=== PATIENT | male | born 1995 ===

== ENCOUNTER 2022-04-30 23:08 | Outpatient (CLI) | payer OTHER, SELFPAY | END 2022-04-30 23:09 | disposition home or self-care (01) | DX: G47.33 Obstructive sleep apnea (adult) (pediatric) (principal) | CPT/HCPCS: 95810 ==

== ENCOUNTER 2022-05-14 15:06 | Emergency (ER) | payer OTHER, SELFPAY ==
[2022-05-14 15:13] VITALS: BP 148/88; PULSE 73; RESP 20; TEMP 36.4; O2SAT 98; BMI 33.5
--- NOTE | 2022-05-14 15:24 | ED.GENADULT ---
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 Was lifting a sheet of plywood and felt a strain in his biceps, noted some weakness, did not notice any anatomic change. He has had no prior injury to that area. He has had no redness or strain Related Data Home Medications Medication Instructions Recorded Confirmed No Known Home Medications 04/21/22 04/21/22 Allergies Allergy/AdvReac Type Severity Reaction Status Date / Time No Known Drug Allergies Allergy Verified 04/21/22 12:44 Review of Systems Status of ROS: Reports: 6 or more systems reviewed and unremarkable except as noted in History and below PFSH PFS Social History Smoking Status: Never smoker Do you use any of these nicotine containing products: None Second hand tobacco smoke exposure: No How often do you have a drink containing alcohol: never How often do you have six or more drinks on one occasion: Never AUDIT-C Alcohol total score: 0 Non-prescribed substance use: denies use service: No Exam Narrative: Exam Narrative: Objective: Patient is very well muscle muscled, his biceps tendon on the right looks intact he has no proximal or distal biceps tendon tenderness, he has no obvious defect in his biceps muscle, he points to his mid bicep on the medial aspect of where his tenderness is, there is no rent her deformity. He has flexion extension of the elbow Const: Vital Signs, click to edit/add: Vital Signs - 24 hr 05/14/22 15:13 Temperature 97.5 F L Pulse Rate [Left P ulse Oximeter] 73 Respiratory Rate 20 Blood Pressure [Le ft Upper Arm] 148/88 H Pulse Oximetry 98 Oxygen Delivery Me thod Room Air Course Vital Signs Vital signs: Initial Vital Signs Temperature 97.5 F L 05/14/22 15:13 Temperature Source Temporal Artery Scan 05/14/22 15:13 Pulse Rate 73 05/14/22 15:13 Pulse Rhythm 05/14/22 15:13 Pulse Strength 3+ Normal 05/14/22 15:13 Respiratory Rate 20 05/14/22 15:13 Blood Pressure 148/88 H 05/14/22 15:13 Blood Pressure Mean 108 05/14/22 15:13 Pulse Oximetry 98 05/14/22 15:13 Oxygen Delivery Method 05/14/22 15:13 Vital Signs Temperature 97.5 F L 05/14/22 15:13 Pulse Rate 73 05/14/22 15:13 Respiratory Rate 20 05/14/22 15:13 Blood Pressure 148/88 H 05/14/22 15:13 Pulse Oximetry 98 05/14/22 15:13 Oxygen Delivery Method 05/14/22 15:13 Temperature 97.5 F L 05/14/22 15:13 Pulse Rate 73 05/14/22 15:13 Respiratory Rate 20 05/14/22 15:13 Blood Pressure 148/88 H 05/14/22 15:13 Pulse Oximetry 98 05/14/22 15:13 Oxygen Delivery Method 05/14/22 15:13 Medical Decision Making MDM Narrative Medical decision making narrative: Patient has bicep muscle pain with lifting, with no gross deformity, I suspect a biceps partial cyst strain or some tear, I do not think this is involving tendon tissue and there is no ball and up of the bicep. Will put him in a sling, ice, Aleve or Advil as needed, off work for light duty for the right arm for the next 3 days and then ortho appointment with PA recommended. We will set that up for him Discharge Plan Discharge Clinical Impression: Injury of biceps brachii muscle Patient Disposition: Home, Self-Care Condition: Stable Additional Instructions: Arm sling, ice to the bicep area 10 minutes 3 4 times a day, orthopedic followup in 3-4 days, light use of the arm and no lifting. Advil or Aleve as needed, return to ED sooner problems or concerns. Please make an appointment with Ortho in 3 days, PA appointment be appropriate Follow up appointment is scheduled at the [facility] on 05/17 with an 11am arrival time. If you have any questions or need to reschedule, please call [phone]. [facility] [place] [address] Activity Level: Light activity Activity Detail: Wear arm sling Discharge Diet: Regular Prescriptions: No Action No Known Home Medications Follow Up/Referrals: Provider,Not a Local [Primary Care Provider] - Stand Alone Forms: [employer] Info Instructions
== END 2022-05-14 15:44 | disposition home or self-care (01) ==
LOC: ED 15:31
PROVIDERS: Emergency Provider Family Medicine
DX: S46.211A Strain of muscle, fascia and tendon of other parts of biceps, right arm, initial encounter (principal); X50.0XXA Overexertion from strenuous movement or load, initial encounter; Y93.9 Activity, unspecified; Y92.9 Unspecified place or not applicable; Y99.9 Unspecified external cause status
CPT/HCPCS: 99282; 99283

== ENCOUNTER 2022-05-22 12:24 | Emergency (ER) | payer OTHER, SELFPAY ==
[2022-05-22 12:28] VITALS: BP 130/64; PULSE 76; RESP 18; TEMP 36.6; O2SAT 97; BMI 33.3
--- OUTSIDE RECORDS SUMMARY | 2022-05-22 13:23 | XMS_ITS | Continuity of Care Document ---
:1995 Author Organization [facility] Care Team Providers Name Role Phone DOD-VA Unavailable Unavailable Problems Combined list of problems from Department of Defense and Veterans Affairs facilities. It does not include entries that were removed or entered in error. Problem Status Onset Problem Date of Comments Source Date Type Resolution warts verruca Inactive Condition WARTS VERRUCA : DoD Gave patient 17.6% salycilic acid to apply to wart twice daily. Discussed with him that it can take multiple weeks to effectively work. Discussed that freezing might be an option when we get home but considering its location next to the tragus and pinna (cartilagenous structures) it might not be feasible. Admonished him to not get acid in his ear canal proper and that if this happens he should irrigate the canal copiously. upper Inactive Condition UPPER DoD respiratory RESPIRATORY infection INFECTION: Early stage of upper respiratory infection of likely viral etiology. No evidence of systemic or lower respiratory involvement. Will treat conservatively with rest, hydration and treatment of symptoms. 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 DoD pre-deployment exam visit for: Active Condition DoD services physical Need For Inactive Condition DoD Prophylactic Antibiotics visit for: Inactive Condition DoD potential organ / tissue donor Need For Inactive Condition DoD Vaccination Yellow Fever Need For Inactive Condition DoD Vaccination Polio Inactivated Need For Inactive Condition DoD Vaccination Against Bacterial Diseases community-acquir Inactive Condition DoD ed pneumonia Intervention And Active Condition DoD Counseling On Cessation Of Tobacco Use visit for: Active Condition DoD examination of subpopulation Need For Inactive Condition DoD Vaccination Hepatitis A And Hepatitis B Need For Inactive Condition DoD Vaccination Pneumococcal Need For Inactive Condition DoD Vaccination Against DTP visit for: Inactive Condition DoD screening exam pulmonary tuberculosis Blood Typing Inactive Condition DoD visit for: ears Active Condition DoD / hearing exam Patient Active Condition DoD Education - Injury Prevention Acne vulgaris Active Condition JOSE BRUCE [facility] Cervicalgia Active Condition MOE ARTHUR [facility] Gynaecomastia Active [facility] Insomnia Active Condition KATARZYNA Piper [facility] Low back pain Active [facility] POL[facility] Diagnosis: Active Diagnosis YANETH IS ICD-10-CM [facility] M25.521 Pain in right elbowwith Provider Comments: Pain in right Elbow Diagnosis: Active Diagnosis YANETH IS ICD-10-CM R41.9 [facility] Unsp symptoms and signs w cognitive functions and awarenesswith Provider Comments: Unspecified Symptoms and Signs involving Cognitive Functions and Awareness Diagnosis: Active Diagnosis YANETH IS ICD-10-CM Z71.89 [facility] Other specified counselingwith Provider Comments: Other specified counseling Diagnosis: Active Diagnosis YANETH IS ICD-10-CM Z04.89 [facility] Encounter for examination and observation for oth reasonswith Provider Comments: Encounter for examination and observation for other specified reasons Diagnosis: Active Diagnosis YANETH IS ICD-10-CM R06.83 [facility] Snoringwith Provider Comments: Snoring Diagnosis: Active Diagnosis YANETH IS ICD-10-CM [facility] M25.562 Pain in left kneewith Provider Comments: Pain in left Knee Medications Combined list of outpatient medications from Department of Defense and [facility] Affairs facilities. Medications provided include 1) outpatient medications from the last 15 months, and 2) patient-reported medications. Medication Details Route Status Patient Prescription Prescription Last Ordering Order Source Instructions Expires Number Dispense Provider Date Date ALBUTEROL INHALE 2 INHALA ACTIVE 05/22/2022 [id number] CATHY 05/21/ [place] 90MCG/ACTUA PUFFS BY TION 1 Bala FAJARDO 2020 O [place] ([facility]) INHALATI ENJAMIN E HCS INHL,ORAL,8 ON FOUR .5GM DOSE TIMES A COUNTER DAY NEEDED FOR IMMEDIAT E RELIEF OF SHORTNES S OF BREATH *SHAKE WELL* CETIRIZINE TAKE ONE Active 06/11/2022 [id number] MACIE ELIE 11/26/ [place] (U/D) 10 MG TABLET 2 N, 2021 olis ORAL TAB BY MOUTH [facility] EVERY E DAY FOR ALLERGIE S CETIRIZINE TAKE ONE Discont 03/22/2021 [id number] SANDHYA SHARMA 06/24/ [place] (U/D) 10 MG TABLET inued 1 N, 2021 olis ORAL TAB BY MOUTH [facility] EVERY E DAY FOR ALLERGIE S CETIRIZINE TAKE ONE ORALLY ACTIVE 06/11/2022 [id number] VAN 06/12/ [place] HCL 10MG TABLET 2 VRMADISONEN,B 2021 [place] V A TAB BY MOUTH ENJAMIN E HCS EVERY DAY FOR ALLERGIE S CLINDAMYCIN APPLY TO TOPICA ACTIVE 12/12/2022 [id number] VAN 12/12/ [place] PO4 1% AFFECTED LLY 2 VRMADISON,B 2021 [place] V A LOTION AREA ENJAMIN E HCS TOPICALL Y TWICE A DAY NEEDED FOR FLARED ACNE Fluoxetine TAKE TWO 05/22/2022 [id number] SANDHYA SHARMA 05/27/ [place] (Prozac) CAPSULES 2 N, 2020 [place] Capsule BY MOUTH [facility] EVERY E l 20 mg DAY - Oral NOTIFY PROVIDER IF YOU EXPERIEN CE SIDE EFFECTS WITH THIS MEDICATI ON Fluoxetine TAKE TWO 05/20/2021 [id number] SANDHYA SHARMA 05/23/ [place] (Prozac) CAPSULES 1 N, 2020 [place]is Capsule BY MOUTH [facility] EVERY E l 20 mg DAY - Oral NOTIFY PROVIDER IF YOU EXPERIEN CE SIDE EFFECTS WITH THIS MEDICATI ON FLUOXETINE TAKE TWO ORALLY ACTIVE 05/22/2022 [id number] VAN 07/14/ [place] HCL 20MG CAPSULES 2 TANAB 2021 [facility] CAP BY MOUTH ENJAMIN E HCS EVERY DAY - NOTIFY PROVIDER IF YOU EXPERIEN CE SIDE EFFECTS WITH THIS MEDICATI ON FLUOXETINE TAKE TWO ORALLY 05/20/2021 [id number] VAN 05/21/ [place] HCL 20MG CAPSULES 1 JERRY,B 2019 [place] [facility] CAP BY MOUTH ENJAMIN E HCS EVERY DAY - NOTIFY PROVIDER IF YOU EXPERIEN CE SIDE EFFECTS WITH THIS MEDICATI ON IBUPROFEN TAKE ONE ORALLY ACTIVE 10/27/2022 [id number] VAN 10/27/ [place] 600MG TAB TABLET 2 TANAB 2021 [place] [facility] BY MOUTH ENJAMIN E HCS TWICE A DAY NEEDED FOR PAIN *TAKE WITH FOOD METHOCARBAM TAKE ONE ORALLY ACTIVE 10/27/2022 [id number] VAN 10/27/ [place] OL 750MG TABLET 2 2021 [place] V A TAB BY MOUTH ENJAMIN E HCS TWICE A DAY NEEDED FOR MUSCLE SPASM OXYCODONE TAKE ONE ORALLY 11/25/2021 [id number] VAN 10/27/ [place] HCL 5MG TAB TABLET 2 2021 IRLANDA S VA BY MOUTH ENJAMIN E HCS TWICE A DAY NEEDED FOR SEVERE PAIN VALACYCLOVI TAKE TWO ORALLY ACTIVE 09/28/2022 [id number] VAN 10/01/ [place] R HCL 1GM TABLETS 2 2021 [place] [facility] TAB BY MOUTH ENJAMIN E HCS TWICE A DAY FOR COLD SORE Allergies, Adverse Reactions, Alerts Combined list of allergies from Department of Defense and Veterans Affairs facilities. It does not include entries that were removed or entered in error. Substance Category Reaction Severity Reaction Status Date Comments S ource type Reported No Known Drug Drug active 02/12/2012 [place] Allergies allergy allergy [place] Immunizations Combined list of available immunizations from the Department of Defense and Veterans Affairs facilities. 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 HCS Administe red by: [facility] (NPI=Not Provided) . Partner 95 Lot#: [id number] 2 Mfr: SEQIRUS INFLUENZA, complet [place] SEASONAL, 2018 ed [place] [facility] INJECTABLE, HC S PRESERVATIVE FREE influenza, 0 04/14/ [id number] 158 SmithKline complet i nfluenza DoD injectable, 2014 (SKB) ed , quadrivalent, inject abl contains e, preservative quadriv al ent, contains preservat deepika typhoid Vi 1 03/21/ K1536 101 Sanofi complet typho id DoD capsular 2014 Pasteur ([facility]) ed Vi polysaccharid capsul ar e vaccine polysacch aride vaccine typhoid Vi 2 03/16/ UNK 101 Crucell complet typh oid DoD capsular 2014 [place] ed Vi polysaccharid LTD ([facility]) ca psular e vaccine polysacch aride vaccine influenza, 0 04/25/ UNK 158 Sanofi complet influ balbir DoD injectable, 2013 Pasteur ([facility]) ed , quadrivalent, inject abl contains e, preservative quadriv al ent, contains preservat deepika anthrax 3 03/11/ UNK 24 Emergent complet anthra x DoD vaccine 2014 BioDefense ed vaccine Operations Jodi (MIP) poliovirus 0 11/20/ UNK 10 MedImmune, complet p olioviru DoD vaccine, 2014 Inc. ([facility]) ed s inactivated vaccine, inactivat ed anthrax 2 10/11/ UNK 24 Emergent complet anthra x DoD vaccine 2014 [employer]ense ed vaccine Operations Jodi (MIP) vaccinia 0 10/11/ VV04-00 75 (MELODY) complet vaccin ia DoD (smallpox) 2014 3-A ed (smallpox vaccine ) vaccine anthrax 1 08/11/ [id number] 24 Emergent complet anth rax DoD vaccine 2014 BioDefense ed vaccine Operations Jodi (MIP) Central African 2 08/11/ [id number] 134 Merck (MSD) complet J apanese DoD Encephalitis 2013 ed Encepha li vaccine for tis intramuscular vaccin e administratio for n intramusc ular administr ation Central African 1 07/05/ UNK 134 Merck (MSD) complet Ja panese DoD Encephalitis 2013 ed Encepha li vaccine for tis intramuscular vaccin e administratio for n intramusc ular administr ation typhoid Vi 1 03/18/ J-1629- 101 Sanofi complet typ hoid DoD capsular 2013 1 Pasteur ([facility]) ed Vi polysaccharid capsul ar e vaccine polysacch aride vaccine influenza, 0 03/18/ NS0750 149 MedImmune, complet influenza DoD live, 2013 Inc. (MED) ed , live, intranasal, intranas a quadrivalent l, quadrival ent hepatitis A 3 12/17/ B457F 104 SmithKline complet hepatitis DoD and hepatitis 2013 (SKB) ed A and B vaccine hepatitis B vaccine yellow fever 0 04/13/ [id number] 37 Sanofi complet y ellow DoD vaccine 2011 Pasteur ([facility]) ed feve r vaccine poliovirus 0 03/13/ H1354 10 Sanofi complet polio viru DoD vaccine, 2012 Pasteur ([facility]) ed s inactivated vaccine, inactivat ed hepatitis A 2 03/13/ AHABB26 104 SmithKline comple t hepatitis DoD and hepatitis 2011 0AB (SKB) ed A and B vaccine hepatitis B vaccine hepatitis A 1 02/11/ AHABB24 104 [facility] hepatitis DoD and hepatitis 2011 4BA (SKB) ed A and B vaccine hepatitis B vaccine influenza 0 02/11/ MF0731 111 CSL complet influe nza DoD virus 2012 Biotherapies, ed virus vaccine, Inc. (CSL) vaccin e, live, live, attenuated, attenuat e for d, for intranasal intranasa use l use meningococcal 0 02/11/ [id number] 114 Aventis complet meningoco DoD polysaccharid 2011 [employer]ring [employer] ed ccal e (groups A, (AVB) polysac ch C, Y and aride W-135) (groups diphtheria A, C, Y toxoid and conjugate W-135) vaccine diphtheri (MCV4P) a toxoid conjugate vaccine (MCV4P) tetanus 0 02/11/ ZN36N85 115 SmithKline complet te tanus DoD toxoid, 2011 4DA (SKB) ed toxoid, reduced reduced diphtheria diphtheri toxoid, and a toxoid , acellular and pertu is acellular vaccine, pertussis adsorbed vaccine, adsorbed pneumococcal 0 7AA 133 Merck (MSD) compl et pneumococ DoD conjugate 2012 ed jeannette vaccine, 13 conjugat e valent vaccine, 13 valent Adenovirus, 0 [id number] 143 [place] complet Kimberly noviru DoD type 4 and 2011 8 Laboratories ed s, type 4 type 7, live, (BRR) and ty pe oral 7, live, oral TDAP complet jlv CAROL AP 2012 ed OLIS [facility] Results Combined list of recent chemistry, hematology and other laboratory results from Department of Defense and Veterans Affairs, ranging from 15 months to all on record, depending upon the facility. Order Results Value Reference Date Interpretation Specimen Commen ts Source Name Range URINALYS COLOR OF LIGHT-YE 05/21 Specimen Type : URINE [place] IS URINE LLOW /2020 No comment enter ed. IS [facility] Ordering Provid er: SANGEETA THOMPSON Report Released Date/Time: May 21, 2021 11:36 AM Reporting Lab: [facility] [address] [place] [address] Performing Lab: [facility] [address] [place] [address] URINALYS SPECIFIC 1.017 1.003 - 05/21 Specimen Type: URINE [place] IS GRAVITY OF 1.035 /2020 No comment en tered. IS [facility] URINE Ordering Provid er: SANGEETA THOMPSON Report Released Date/Time: May 21, 2021 11:36 AM Reporting Lab: [facility] [address] [place] [address] Performing Lab: [facility] [address] [place] [address] URINALYS BILIRUBIN. NEGATIVE 05/21 Specimen Ty pe: URINE [place] IS TOTAL /2020 No comment enter ed. IS [facility] [[place]] Ordering Pro vider: SANGEETA THOMPSON IN URINE Report Release d Date/Time: May 21, 2021 11:36 AM BY TEST Reporting Lab: [facility] STRIP [address] [place] [address] Performing Lab: [facility] [address] [place] [address] URINALYS KETONES NEGATIVE 05/21 Specimen Type: URINE [place] IS [MASS/VOLU /2020 No comment en tered. IS [facility] ME] IN Ordering Provid er: SANGEETA THOMPSON URINE BY Report Release d Date/Time: May 21, 2021 11:36 AM TEST STRIP Reporting La b: [facility] [address] [place] [address] Performing Lab: [facility] [address] [place] [address] URINALYS GLUCOSE NEGATIVE <30 - 30 05/21 Specimen Type : URINE [place] IS [MASS/VOLU /2020 No comment en tered. [facility] ME] IN Ordering Provid er: SANGEETA THOMPSON URINE BY Report Release d Date/Time: May 21, 2021 11:36 AM TEST STRIP Reporting La b: [facility] [address] [facility] [facility] [address] Performing Lab: [facility] [address] [facility] [address] URINALYS PROTEIN 10 <20 - 20 05/21 Specimen Type: URINE [place] IS [MASS/VOLU /2020 No comment [facility] tered. [facility] IN Ordering Provid er: SANGEETA THOMPSON URINE BY Report Release d Date/Time: May 21, 2021 11:36 AM TEST STRIP Reporting La b: [facility] [address] [facility] [facility] [address] Performing Lab: [facility] [address] [facility] [facility] [address] URINALYS PH OF 7.0 5.0 - 8.0 05/21 Specimen Type : URINE [place] IS URINE BY /2020 No comment ente red. IS [facility] TEST STRIP Ordering Pro vider: SANGEETA THOMPSON Report Released Date/Time: May 21, 2021 11:36 AM Reporting Lab: [facility] [address] [facility] [facility] [address] Performing Lab: [facility] [address] [facility] [facility] [address] URINALYS LEUKOCYTES 1 0 - 7 05/21 Specimen Typ e: URINE [place] IS [#/AREA] /2020 No comment ente red. IS [facility] IN URINE Ordering Provi chari: SANGEETA THOMPSON SEDIMENT Report Release d Date/Time: May 21, 2021 11:36 AM BY Reporting Lab: [facility] MICROSCOPY ONE [facility] [address] HIGH POWER Performing L ab: [facility] FIELD [address] [facility] [address] URINALYS BACTERIA NONE 05/21 Specimen Type: URINE [place] IS [[place]] SEEN /2020 No comment en tered. IS [facility] IN URINE Ordering Provi chari: SANGEETA THOMPSON SEDIMENT Report Release d Date/Time: May 21, 2021 11:36 AM BY LIGHT Reporting Lab: [facility] MICROSCOPY ONE [facility] [address] Performing Lab: [facility] [address] [place] [address] URINALYS ERYTHROCYT 2 0 - 3 05/21 Specimen Typ e: URINE [place] IS ES /2020 No comment enter ed. IS [facility] [#/AREA] Ordering Provi chari: SANGEETA THOMPSON IN URINE Report Release d Date/Time: May 21, 2021 11:36 AM SEDIMENT Reporting Lab: [facility] BY [place] [address] MICROSCOPY Performing L ab: [facility] HIGH POWER ONE [facility] [address] FIELD URINALYS APPEARANCE CLEAR 05/21 Specimen Typ e: URINE [place] IS OF URINE /2020 No comment ente red. IS [facility] Ordering Provid er: SANGEETA THOMPSON Report Released Date/Time: May 21, 2021 11:36 AM Reporting Lab: [facility] [address] [facility] [address] Performing Lab: [facility] [address] [facility] [address] URINALYS EPITHELIAL NONE 05/21 Specimen Typ e: URINE [place] IS CELLS.SQUA SEEN /2020 No comment en tered. IS [facility] MOUS Ordering Provid er: SANGEETA THOMPSON [#/AREA] Report Release d Date/Time: May 21, 2021 11:36 AM IN URINE Reporting Lab: [facility] SEDIMENT [address] [facility] [address] BY Performing Lab: [facility] MICROSCOPY [facility] [address] HIGH POWER FIELD URINALYS HEMOGLOBIN NEGATIVE 05/21 Specimen Ty pe: URINE [place] IS [[place]] /2020 No comment en tered. IS [facility] IN URINE Ordering Provi chari: SANGEETA THOMPSON BY TEST Report Released Date/Time: May 21, 2021 11:36 AM STRIP Reporting Lab: [facility] [address] [facility] [address] Performing Lab: [facility] [address] [facility] [facility] [address] URINALYS NITRITE NEGATIVE 05/21 Specimen Type: URINE [place] IS [[place]] /2020 No comment en tered. IS [facility] IN URINE Ordering Provi chari: SANGEETA THOMPSON BY TEST Report Released Date/Time: May 21, 2021 11:36 AM STRIP Reporting Lab: [facility] [place] [place] [address] Performing Lab: [facility] [address] [place] [address] URINALYS LEUKOCYTE NEGATIVE 05/21 Specimen Typ e: URINE [place] IS ESTERASE /2020 No comment ente red. [facility] [[place]] Ordering Pro vider: SANGEETA THOMPSON IN URINE Report Release d Date/Time: May 21, 2021 11:36 AM BY TEST Reporting Lab: [facility] STRIP [place] [address] Performing Lab: [facility] [address] [place] [address] CBC LEUKOCYTES 6.56 4.0 - 11.0 05/21 Specimen T ype: BLOOD [place] [#/VOLUME] /2020 No comment en tered. IS [facility] IN BLOOD Ordering Provi chari: SANGEETA THOMPSON BY Report Released Date/Time: Apr 17, 2021 11:27 AM AUTOMATED Reporting Lab : [facility] COUNT [address] [facility] [facility] [address] Performing Lab: [facility] [address] [facility] [facility] [address] CBC ERYTHROCYT 5.90 4.6 - 6.2 05/21 Specimen Ty pe: BLOOD [place] ES /2020 No comment enter ed. [facility] [#/VOLUME] Ordering Pro vider: SANGEETA THOMPSON IN BLOOD Report Release d Date/Time: Apr 17, 2021 11:27 AM BY Reporting Lab: [facility] AUTOMATED [address] [facility] [address] COUNT Performing Lab: [facility] [address] [facility] [facility] [address] CBC HEMOGLOBIN 18.8 13.5 - 12/13 H Specimen Type : BLOOD [place] [MASS/VOLU 17.9 /2020 No comment en tered. IS [facility] ME] IN Ordering Provid er: SANGEETA THOMPSON BLOOD Report Released Date/Time: Apr 17, 2021 11:27 AM Reporting Lab: [facility] [address] [facility] [address] Performing Lab: [facility] [address] [facility] [address] CBC HEMATOCRIT 56.5 41 - 54 12/ H Specimen Type : BLOOD [place] [VOLUME /2020 No comment enter ed. IS [facility] FRACTION] Ordering Prov ider: SANGEETA THOMPSON OF BLOOD Report Release d Date/Time: Apr 17, 2021 11:27 AM BY Reporting Lab: [facility] AUTOMATED [address] [facility] [address] COUNT Performing Lab: [facility] [address] [facility] [address] CBC MCV 95.8 80 - 100 05/21 Specimen Type: BLOOD [place] [ENTITIC /2020 No comment ente red. [facility] VOLUME] BY Ordering Pro vider: SANGEETA THOMPSON AUTOMATED Report Releas ed Date/Time: Apr 17, 2021 11:27 AM COUNT Reporting Lab: [facility] [address] [facility] [address] Performing Lab: [facility] [address] [facility] [address] CBC MCH 31.9 27 - 33 05/21 Specimen Type: B LOOD [place] [ENTITIC /2020 No comment ente red. [facility] MASS] BY Ordering Provi chari: SAGNEETA THOMPSON AUTOMATED Report Releas ed Date/Time: Apr 17, 2021 11:27 AM COUNT Reporting Lab: [facility] [address] [facility] [address] Performing Lab: [facility] [address] [place] [address] CBC MCHC 33.3 32.0 - 05/21 Specimen Type: B LOOD [place] [MASS/VOLU 37.5 /2020 No comment en tered. [facility] ME] BY Ordering Provid er: SANGEETA THOMPSON AUTOMATED Report Releas ed Date/Time: Apr 17, 2021 11:27 AM COUNT Reporting Lab: [facility] [address] [facility] [address] Performing Lab: [facility] [address] [facility] [facility] [address] CBC PLATELETS 272 150 - 400 05/21 Specimen Typ e: BLOOD [place] [#/VOLUME] /2020 No comment en tered. [facility] [place] BLOOD Ordering Provi chari: SANGEETA THOMPSON BY Report Released Date/Time: Apr 17, 2021 11:27 AM AUTOMATED Reporting Lab : [facility] COUNT [address] [facility] [address] Performing Lab: [facility] [address] [facility] [address] CBC PLATELET 10.6 7.4 - 10.4 12/13 H Specimen Typ e: BLOOD [place] MEAN /2020 No comment enter ed. IS [facility] VOLUME Ordering Provid er: SANGEETA THOMPSON [ENTITIC Report Release d Date/Time: Apr 17, 2021 11:27 AM VOLUME] IN Reporting La b: [facility] BLOOD BY [address] [facility] [address] AUTOMATED Performing La b: [facility] COUNT [address] [facility] [address] CBC ERYTHROCYT 14.5 11.5 - 05/21 Specimen Type : BLOOD [place] E 14.5 /2020 No comment enter ed. IS [facility] DISTRIBUTI Ordering Pro vider: SANGEETA THOMPSON ON WIDTH Report Release d Date/Time: Apr 17, 2021 11:27 AM [RATIO] BY Reporting La b: [facility] AUTOMATED [address] [facility] [address] COUNT Performing Lab: [facility] [address] [facility] [address] COMPREHE CREATININE 1.2 0.7 - 1.2 05/21 Specimen T ype: PLASMA [place] NSIVE [MASS/VOLU /2020 No comment en tered. IS [facility] METABOLI ME] IN Ordering Provi chari: SANGEETA THOMPSON SERUM OR Report Release d Date/Time: Apr 17, 2021 11:27 AM PANEL+MG PLASMA Reporting Lab: [facility] [address] [facility] [address] Performing Lab: [facility] [address] [facility] [address] COMPREHE UREA 10 8 - 26 05/21 Specimen Type: PLASMA [place] NSIVE NITROGEN No comment ente red. IS [facility] METABOLI [MASS/VOLU Ordering Pr ovider: SANGEETA THOMPSON C ME] IN Report Released Date/Time: Apr 17, 2021 11:27 AM PANEL+MG SERUM OR Reporting La b: [facility] PLASMA [address] [facility] [address] Performing Lab: [facility] [address] [facility] [address] COMPREHE GLUCOSE 94 74 - 100 05/21 Specimen Type: PLASMA [place] NSIVE [MASS/VOLU /2020 No comment en tered. IS [facility] METABOLI ME] IN Ordering Provi chari: SANGEETA THOMPSON C SERUM OR Report Release d Date/Time: Apr 17, 2021 11:27 AM PANEL+MG PLASMA Reporting Lab: [facility] [address] [facility] [address] Performing Lab: [facility] [address] [facility] [address] COMPREHE SODIUM 138 136 - 145 05/21 Specimen Type : PLASMA [place] NSIVE [MOLES/VOL No comment en tered. IS [facility] METABOLI UME] IN Ordering Provi chari: SANGEETA THOMPSON SERUM OR Report Release d Date/Time: Apr 17, 2021 11:27 AM PANEL+MG PLASMA Reporting Lab: [facility] [address] [facility] [address] Performing Lab: [facility] [address] [facility] [address] COMPREHE POTASSIUM 4.2 3.5 - 5.1 05/21 Specimen Ty pe: PLASMA [place] NSIVE [MOLES/VOL No comment en tered. IS [facility] METABOLI UME] IN Ordering Provi chari: SANGEETA THOMPSON SERUM OR Report Release d Date/Time: Apr 17, 2021 11:27 AM PANEL+MG PLASMA Reporting Lab: [facility] [address] [facility] [address] Performing Lab: [facility] [address] [facility] [address] COMPREHE CHLORIDE 106 98 - 107 05/21 Specimen Type : PLASMA [place] NSIVE [MOLES/VOL No comment en tered. [facility] METABOLI UME] IN Ordering Provi chari: SANGEETA THOMPSON SERUM OR Report Release d Date/Time: Apr 17, 2021 11:27 AM PANEL+MG PLASMA Reporting Lab: [facility] [address] [facility] [address] Performing Lab: [facility] [address] [facility] [address] COMPREHE CARBON 25 22 - 29 05/21 Specimen Type: PLASMA [place] NSIVE No comment ente red. IS [facility] MET[facility]I TOTAL Ordering Provi chari: SANGEETA THOMPSON [MOLES/VOL Report Relea sed Date/Time: Apr 17, 2021 11:27 AM PANEL+MG UME] IN Reporting Lab: [facility] SERUM OR [address] Ar[address] MURILLO [facility] [address] PLASMA Performing Lab: [facility] [address] [facility] [address] COMPREHE CALCIUM 9.3 8.4 - 10.2 05/21 Specimen Typ e: PLASMA [place] NSIVE [MASS/VOLU /2020 No comment en tered. [facility] MET[facility] ME] IN Ordering Provi chari: SANGEETA THOMPSON SERUM OR Report Release d Date/Time: Apr 17, 2021 11:27 AM PANEL+MG PLASMA Reporting Lab: [facility] [address] [facility] [address] Performing Lab: [facility] [address] [facility] [address] COMPREHE PROTEIN 7.8 6.0 - 8.3 05/21 Specimen Type : PLASMA [place] NSIVE [MASS/VOLU /2020 No comment en tered. [facility] MET[facility] ME] IN Ordering Provi chari: SANGEETA THOMPSON SERUM OR Report Release d Date/Time: Apr 17, 2021 11:27 AM PANEL+MG PLASMA Reporting Lab: [facility] [address] [facility] [address] Performing Lab: [facility] [address] [facility] [address] COMPREHE ALBUMIN 4.3 3.5 - 5.2 05/21 Specimen Type : PLASMA [place] NSIVE [MASS/VOLU /2020 No comment en tered. IS [facility] MET[facility]OLI ME] IN Ordering Provi chari: SANGEETA THOMPSON SERUM OR Report Release d Date/Time: Apr 17, 2021 11:27 AM PANEL+MG PLASMA Reporting Lab: [facility] [address] [facility] [address] Performing Lab: [facility] [address] [facility] [address] COMPREHE BILIRUBIN. 0.8 0.2 - 1.2 05/21 Specimen T ype: PLASMA [place] NSIVE TOTAL /2020 No comment enter ed. [facility] MET[facility]I [MASS/VOLU Ordering Pr ovider: SANGEETA THOMPSON] IN Report Released Date/Time: Apr 17, 2021 11:27 AM PANEL+MG SERUM OR Reporting Lab : [facility] PLASMA [address] [facility] [address] Performing Lab: [facility] [address] [facility] [address] COMPREHE MAGNESIUM 1.9 1.6 - 2.6 05/21 Specimen Ty pe: PLASMA [place] NSIVE [MASS/VOLU /2020 No comment en tered. IS [facility] MET[facility] ME] IN Ordering Provi chari: SANGEETA THOMPSON SERUM OR Report Release d Date/Time: Apr 17, 2021 11:27 AM PANEL+MG PLASMA Reporting Lab: [facility] [address] [facility] [address] Performing Lab: [facility] [address] [facility] [address] COMPREHE ANION GAP 7 5 - 15 05/21 Specimen Type : PLASMA [place] NSIVE IN SERUM /2020 No comment ente red. IS [facility] METABOLI OR PLASMA Ordering Pro vider: SANGEETA THOMPSON Report Released Date/Time: Apr 17, 2021 11:27 AM PANEL+MG Reporting Lab: [facility] [address] [facility] [address] Performing Lab: [facility] [address] [facility] [address] COMPREHE ALKALINE 46 40 - 150 05/21 Specimen Type : PLASMA [place] NSIVE PHOSPHATAS /2020 No comment en tered. IS [facility] MET[facility] E Ordering Provi chari: SANGEETA THOMPSON [ENZYMATIC Report Relea sed Date/Time: Apr 17, 2021 11:27 AM PANEL+MG ACTIVITY/V Reporting L ab: [facility] OLUME] IN [address] [facility] [address] SERUM OR Performing Lab : [facility] PLASMA [address] [facility] [address] COMPREHE ALANINE 35 <55 - 55 05/21 Specimen Type: PLASMA [place] NSIVE AMINOTRANS /2020 No comment en tered. [facility] FERASE Ordering Provi chari: SANGEETA THOMPSON [ENZYMATIC Report Relea sed Date/Time: Apr 17, 2021 11:27 AM PANEL+MG ACTIVITY/V Reporting L ab: [facility] OLUME] IN [address] [facility] [address] SERUM OR Performing Lab : [facility] PLASMA [address] [facility] [address] COMPREHE ASPARTATE 38 <34 - 34 12/ H Specimen Typ e: PLASMA [place] NSIVE AMINOTRANS /2020 No comment en tered. [facility] FERASE Ordering Provi chari: SANGEETA THOMPSON [ENZYMATIC Report Relea sed Date/Time: Apr 17, 2021 11:27 AM PANEL+MG ACTIVITY/V Reporting L ab: [facility] OLUME] IN [facility] [address] [facility] [address] SERUM OR Performing Lab : [facility] PLASMA [address] [facility] [address] COMPREHE GLOMERULAR 73 60 12/13 Specimen Typ e: PLASMA [place] NSIVE No comment en tered. IS [facility] MET[facility] RATE/1.73 Ordering Pro vider: SANGEETA THOMPSON SQ Report Released Date/Time: Apr 17, 2021 11:27 AM PANEL+MG M.PREDICTE Reporting L ab: [facility] D [VOLUME [facility] [address] RATE/AREA] Performing L ab: [facility] IN SERUM, ONE [facility] [address] PLASMA OR BLOOD BY CREATININE -BASED FORMULA (CKD-EPI) TSH THYROTROPI 1.47 0.35 - 05/21 Specimen Type : PLASMA [place] W/REFLEX N 4. No comment ente red. IS [facility] TO FREE [UNITS/VOL Ordering Pro vider: SANGEETA THOMPSON T4 UME] IN Report Released Date/Time: Apr 17, 2021 11:27 AM SERUM OR Reporting Lab: [facility] PLASMA [address] [facility] [address] Performing Lab: [facility] [address] [facility] [address] TESTOSTE TESTOSTERO >1500 221 - 870 12/13 H Specimen T ype: SERUM [place] NICOLE NE No comment enter ed. IS [place] [facility] [MASS/VOLU Ordering Pro vider: SANGEETA THOMPSON ME] IN Report Released Date/Time: Apr 17, 2021 11:27 AM SERUM OR Reporting Lab: [facility] PLASMA [address] [facility] [address] Performing Lab: [facility] [address] [facility] [address] FSH FOLLITROPI <0.11 0.95 - 12 L Specimen Type : PLASMA [place] N 11. No comment enter ed. [place] [facility] [UNITS/VOL Ordering Pro vider: SANGEETA THOMPSON UME] IN Report Released Date/Time: Apr 17, 2021 11:27 AM SERUM OR Reporting Lab: [facility] PLASMA [place] [address] Performing Lab: [facility] [address] [facility] [address] LUTEINIZ LUTROPIN <0.12 0.57 - 05/21 L Specimen Type: SERUM [place] ING [UNITS/VOL 05.15 No comment en tered. IS [facility] HORMONE UME] IN Ordering Provid er: SANGEETA THOMPSON SERUM OR Report Release d Date/Time: Apr 17, 2021 11:27 AM PLASMA Reporting Lab: [facility] [address] [facility] [address] Performing Lab: [facility] [address] [facility] [address] INSULIN INSULIN-LI 126 63 - 373 05/21 Specimen Typ e: SERUM [place] LIKE KE GROWTH /2020 Comment: REFE RENCE RANGE: -2.0 - +2.0 SD This test was developed and its analytical performance characteristics have been determined by [facility]. It has n IS [facility] GROWTH FACTOR-I ot been cleared or approved by FDA. This assay has been validated pursuant to the CLIA regulations and is used for clinical purposes. Test performed by [facility] [employer] [place] [address] FA[address] [MASS/[place] [address] Nursing Home Manager: Saranya Sullivan MD,PHD,EMMA Test Reported by [facility], [facility], [address] [place] [address]] IN [place] Jovanni Dukes M.D., Ph.D., Director of Laboratories , CLIA [id number] SERUM OR Ordering Provi chari: SANGEETA THOMPSON PLASMA Report Released Date/Time: May 21, 2021 11:36 AM Reporting Lab: [facility] [place] [address] Performing Lab: [address] INSULIN INSULIN-LI -0.6 05/21 Specimen Type : SERUM [place] LIKE KE GROWTH /2020 Comment: REFE RENCE RANGE: -2.0 - +2.0 SD This test was developed and its analytical performance characteristics have been determined by [facility]. It has n [place] [facility] GROWTH FACTOR-I ot been cleared or approved by FDA. This assay has been validated pursuant to the CLIA regulations and is used for clinical purposes. Test performed by [facility] [address] FA[address] [Z-SCORE] [place] [address] Nursing Home Manager: Saranya Sullivan MD,PHD,EMMA Test Reported by [facility], [address] [place] [address] IN SERUM [place] Maribel Dukes M.D., Ph.D., Director of Laboratories , CLIA [id number] OR PLASMA Ordering Prov ider: SANGEETA THOMPSON Report Released Date/Time: May 21, 2021 11:36 AM Reporting Lab: [facility] [address] [facility] [address] Performing Lab: [address] INSULIN INSULIN-LI DNR 05/21 Specimen Type : SERUM [place] LIKE Comment: REFE RENCE RANGE: -2.0 - +2.0 SD This test was developed and its analytical performance characteristics have been determined by [facility]. It has n [place] [facility] GROWTH FACTOR-I ot been cleared or approved by [facility]. This assay has been validated pursuant to the CLIA regulations and is used for clinical purposes. Test performed by [employer] [place] [address] FA[address] [Z-SCORE] [place] [address] Nursing Home Manager: Saranya Sullivan MD,PHD,EMMA Test Reported by [facility] [employer] [place], [address] [place] [address], [place] SERUM [place] Maribel Dukes M.D., Ph.D., Director of Laboratories , CLIA [id number] OR PLASMA Ordering Prov ider: SANGEETA THOMPSON Report Released Date/Time: May 21, 2021 11:36 AM Reporting Lab: [facility] [address] [facility] [address] Performing Lab: [facility] [address] [facility] CORTISOL CORTISOL 8.3 05/21 Specimen Type: PLASMA [place] [MASS/VOLU /2020 No comment en tered. IS [facility] ME] IN Ordering Provid er: SANGEETA THOMPSON SERUM OR Report Release d Date/Time: May 21, 2021 11:36 AM PLASMA Reporting Lab: [facility] [address] [facility] [address] Performing Lab: [facility] [address] [facility] [address] PROLACTI PROLACTIN 13.64 <19.40 - 05/21 Specimen Typ e: PLASMA [place] N [MASS/VOLU 19.40 No comment en tered. IS [facility] ME] IN Ordering Provid er: SANGETEA THOMPSON SERUM OR Report Release d Date/Time: May 21, 2021 11:36 AM PLASMA BY Reporting Lab : [facility] [address] Y Performing Lab: [facility] [address] [facility] [address] Encounters Combined list of: 1) Encounters from Department of Veterans Affairs facilities going back up to the last 18 months. 2) Encounters from the Department of Defense facilities going back up to 280 months. Location Location Encounter Encounter Reason Attending [facility] Stat Disposition Source Details Type Number For Provider Date Date Visit OUTPATIENT [id number] Notes KIMBERLY, 02/11 Release d w/o [place] Entered Limitations Emerson( M by: Manish OBREGON Process ONYFRO ing) LISSA 12 Feb 2012 0753 ------- ------- ------- ------- -- MOT OUTPATIENT [id number] Notes ZAFAR, 02/11 Release d w/o [place] Entered LYNDSEY Limitations go(M by: STEVEN Skaggs ,LYNDSEY ) A 12 Feb 2012 1010 ------- ------- ------- ------- -- REFEREN CE AUDIOGR AM OUTPATIENT [id number] Notes WALT, 02/28 [place] Entered [place] Home/Quarter go(M by: Galdino Mccall Recruit DUNG Sick K 22 Call) Feb [id number] ------- ------- ------- ------- -- COUGH X5 DAYS OUTPATIENT [id number] Notes LORI, 03/02 Released w/o [place] Entered ERIC Limitations Di ego(M by: Bala WISEMAN Recruit MAURICIO Sick E 24 Call) Feb 2012645 ------- ------- ------- ------- -- PNA F/U OUTPATIENT [id number] T48 PERTUBAL, 03/17 Releas ed w/o [place] VACCINE MARIAM L Limitations go(M CRD Recruit Process ing) OUTPATIENT [id number] 1 MONTH XXXSULLIVA 04/09 Rel eased w/o [place] F/U PNA N, MELI Limitations go(M RX CRD Recruit Sick Call) OUTPATIENT [id number] T48 BONNY, 04/13 Releas ed w/o [place] VACCINE FREDDIE Limitations Emerson (M CRD Recruit Process ing) OUTPATIENT [id number] post MARIE, 05/13 [place] GRULLON Limitations Pend let e on, VALDO([address] [facility]) OUTPATIENT [id number] good BRUNER, 06/18 [place]as ed [place] galdino BENJAMIN Limitations Pendle t onVALDO([address] [facility]) OUTPATIENT [id number] Jacklyn CAMPBELL, 03/15 [place] En[place] NUVIA Limitations Pen dlet by: ADRIAN carvajal [place](Camp ERASEMU Pendlet S on Mar Conserv 1103 ation ------- Clinic) ------- ------- ------- -- ANNUAL AUDIOGR AM OUTPATIENT [id number] Jacklyn CHOPRA, 12/27 Releas ed [place]o [place] Entered ELANA Limitations Pen dlet by: ELIESER carvajal(LISSETTE CABALLERO PHDRA N T 21 [facility]) Dec [id number] ------- ------- ------- ------- -- JAMIE ROBIN E: Test Date December 21, 2013 OUTPATIENT [id number] Theater 02/19 Sick at [place] Provider /2013 Home/Quarter Faci lit s y OUTPATIENT [id number] Theater 05/28 Released w/o Theater Provider /2013 Limitations Facil it y OUTPATIENT [id number] REE WAINSCOTT, 12/22 Released w/o [place] [id number] SIVAKUMAR M Limitations Pe ndlet 182 onVALDO(Arun Pendlet on Optomet ry) OUTPATIENT [id number] FINAL BETO, 10/08 Released w /o [place] PHYSICA IVANA A Limitations D iego(4 L 3 Area [facility] [place] [address]) OUTPATIENT [id number] FINAL BETO, 10/22 Released w /o [place] PHYSICA IVANA A Limitations D iego(4 L 3 Area [facility] [place] [address]) HC PRO 45937-3.61 Diagnos WIESSENBER 11/22 [place] PHONE CALL [id number] is: KAITLYNN [facility] 11-20 MIN ICD-10- K HCS CM Z04.89 Encount er for examina tion and observa tion for oth reasons
wi th Provide r Comment s: Encount er for examina tion and observa tion for other specifi ed reasons Outpatient 22575-2.61 12/05 [place] En[facility] [id number] [facility] 82667-1.61 08/03 [place] En[place] [id number] [facility] 50052-3.61 01/24 [place] En[place] [id number] [facility] [place] 34008-7.61 Diagnos CRUZ,BRUC 01/24 [place] PHONE CALL [phone] is: E A [facility] 5-10 MIN ICD-10- HCS CM Z71.89 Other specifi ed behavioral health counselor ing<br/ >with Provide r Comment s: Other specifi ed behavioral health counselor ing HC PRO 14981-1.61 Diagnos WIABBYENBER 01/24 [place] PHONE CALL [id number] is: KAITLYNN [facility] 5-10 MIN ICD-10- K HCS CM Z04.89 Encount er for examina tion and observa tion for oth reasons
wi th Provide r Comment s: Encount er for examina tion and observa tion for other specifi ed reasons Outpatient 62849-6.61 03/17 [place] En[place] [id number] [facility] 52869-0.61 04/09 [place] En[place] [id number] [facility] HC PRO 21590-6.61 Diagnos WIABBYENBER 04/17 [place] PHONE CALL [id number] is: KAITLYNN [facility] 5-10 MIN ICD-10- K HCS CM Z04.89 Encount er for examina tion and observa tion for oth reasons
wi Provide r Comment s: Encount er for examina tion and observa tion for other specifi ed reasons Outpatient 99925-8.61 KEHBORN,AN 05/17 [place] Encounter [id number] CAR [facility] OFFICE O/P 72756-3.61 Diagnos VAN 05/21 [place] EST MOD [id number] is: TANA [facility] 30-39 MIN ICD-10- NJAMIN E HCS CM M25.562 Pain in left knee
with Provide r Comment s: Pain in left Knee Outpatient 50635-2.61 VAN 05/21 [place] Encounter [id number] TANA [facility] Outpatient 80403-4.61 Diagnos RASHAUN PAUL 05/21 [place] Encounter [id number] is: CA [facility] ICD-10- HCS CM R06.83 Snoring
wi th Provide r Comment s: Snoring Outpatient 21479-9.61 05/22 [place] En[place] [id number] [facility] Outpatient 45544-761 05/23 [place] Encounter [id number] [facility] Outpatient 41378-2 CARLOS,T 06/18 [place] Encounter [id number] ERR [facility] Outpatient 54215-461 06/19 [place] Encounter [id number] [facility] HC PRO 32311-5 Diagnos RAMIREZ,S 07/03 [place] PHONE CALL [id number] is: EBASTIAN C [facility] 5-10 MIN ICD-10- HCS CM Z71.89 Other specifi ed behavioral health counselor ing<br/ >with Provide r Comment s: Other specifi ed behavioral health counselor ing Outpatient 67963-3 CARLOS,T 07/04 [place] Encounter [id number] [facility] PRO 39483-4 Diagnos BETO STONE 09/26 [place] PHONE CALL [id number] is: E K [facility] 5-10 MIN ICD-10- HCS CM Z04.89 Encount er for examina tion and observa tion for oth reasons
wi th Provide r Comment s: Encount er for examina tion and observa tion for other specifi ed reasons Outpatient 82451-5.61 09/27 [place] Encounter [id number] [facility] Outpatient 03398-6 OLBERDING, 10/11 [place] Encounter [id number] MORRIS M IRLANDA S [facility] Outpatient 74483-061 CARLOS,T 10/25 [place] Encounter [id number] ERR [facility] PRO 11972-7 Diagnos JYOTSNA LOPEZ 10/26 [place] PHONE CALL [id number] is: LLY ROULA [facility] 5-10 MIN ICD-10- HCS CM Z04.89 Encount er for examina tion and observa tion for oth reasons
wi th Provide r Comment s: Encount er for examina tion and observa tion for other specifi ed reasons HC PRO 08165-561 Diagnos PRASANNA CRUZ 10/26 [place] PHONE CALL [id number] is: E A [facility] [place] 5-10 MIN ICD-10- HCS CM Z71.89 Other specifi ed behavioral health counselor ing<br/ >with Provide r Comment s: Other specifi ed behavioral health counselor ing Outpatient 16140-0.61 10/27 [place] Encounter [id number] /2021 [facility] Outpatient 28191-0.61 10/30 [place] Encounter [id number] [facility] Outpatient 64271-261 Mariam GONZALEZ 10/31 [place] Encounter [id number] ERRY [facility] Outpatient 02295-2.61 Diagnos VAN 12/11 [place] Encounter [id number] is: TANA [facility] ICD-10- NJAMIN E [facility] CM R41.9 Unsp symptom s and signs w cogniti ve functio ns and awarene ss
with Provide r Comment s: Unspeci fied Symptom s and Signs involvi ng Cogniti ve Functio ns and Awarene ss Outpatient 66527-5.61 12/12 [place] En[place] [id number] /2021 [facility] Outpatient 77122-6.61 ELIE, 02/19 [place] Encounter [id number] MORRIS M IRLANDA S [facility] Outpatient 26330-1.61 SATISH 05/14 [place] Encounter [id number] ,TYRONE S /2021 [facility] Outpatient 65916-1.61 05/14 [place] En[place] [id number] /2021 [facility] Outpatient 50210-1.61 Diagnos VAN 05/15 [place] Encounter [id number] is: TANA, [facility] ICD-10- NJAMIN E HCS CM M25.521 Pain in right elbow<b r/>with Provide r Comment s: Pain in right Elbow Outpatient 62657-4.61 TEOFILO IBARRA 05/16 [place] Encounter [id number] ARNOLDO E /2021 [facility] Outpatient 37088-0.61 SA FRANCISCO 05/16 [place] Encounter [id number] R [facility] Procedures Combined list of: 1) Procedures from Department of Veterans Affairs facilities going back up to the last 18 months, not all [place] non-surgical procedures are included; 2) All procedures from the Department of Defense facilities. Procedure Procedure Type Code Date Perfomer Comments Sourc e Spectacles Services Spectacles 59570 12/22/ SIVAKUMAR LIRIANO Fitting Monofocal Services Fitting 2014 M Except For Aphakia Monofocal Except For [place] [address] 12/22/ SIVAKUMAR LIRIANO Refractive State Refractive State 2014 M Ophthalmological New Ophthalmological 98304 12/22/ ALAINA LIRIANO RA Patient Start New Patient Start 2014 M Comprehensive Care Comprehensive Care Psychometric 12/27/ Diana CHOPRA Neuropsych Testing 2013 ELANA Becerra Battery Admin By Computer Patient education, 03/15/ Arnel CAMPBELL oD not otherwise cla 2012 PING ified, non-physician provider, individual, per se ion [facility] 81398 03/15/ Diana CAMPBELL Testing Testing 2013 PING Physician Supervised Physician 26414 06/18/ SOURAV BRUNER Injection Supervised 2012 Intramuscular Injection Antibiotic Intramuscular Antibiotic Screening to 06/18/ SOURAV BRUNER oD determine the 2012 appropriatene of consideration of an individual for participation in a specified program, project or treatment protocol, per encounter Injection, penicillin 04/13/ KATERINE [facility] g benzathine, 100,000 2011 J units Immunization Immunization 79664 04/13/ KATERINE JADA Diana Administration By Administration By 2011 J Injection, One Injection, One Vaccine Vaccine Physician Supervised Physician 70155 04/13/ KATERINE JADACINTIA Ortiz Injection Supervised 2011 J Intramuscular Injection Antibiotic Intramuscular Antibiotic Vaccines Viral Yellow Vaccines Viral 57122 KATERINE [facility] Diana Fever Yellow Fever 2012 J Hepatitis A And Hepatitis A And 23442 03/17/ Diana MEDRANO Hepatitis B Hepatitis B 2012 SIDANTHONYFRO (Intramuscular Use) (Intramuscular BOCALA Adult Dosage Use) Adult Dosage Physician Supervised Physician 33022 MITCHELL [facility] Injection Supervised 2011 SIDANTHONYFRO Intramuscular Injection [facility] Intramuscular Vaccines Viral Polio, Vaccines Viral 67145 MEDRANO, [facility] Inactivated Polio, Inactivated 2011 SIDANTHONYO [facility] Immunization Immunization 31189 MEDRANO, [facility] Administration By Administration By 2011 SIDANTHONYFRO Injection, One Injection, One BOCALA Vaccine Vaccine Immunization MEDRANO, [facility] Administration By 2011 SIDANTHONYFRO Injection, Each [facility] Additional Vaccine Injection, penicillin MEDRANO, [facility] g benzathine, 100,000 2011 SIDANTHONYFRO units [facility] [place] [address] 02/11/ MARIN, [facility] Capillary Blood Capillary Blood 2012 A Specimen Specimen Venipuncture Venipuncture 21343 02/11/ MARIN, [facility] 2012 A Immunization Immunization 08856 MARIN, [facility] Administration By Administration By 2011 A Injection, One Injection, One Vaccine Vaccine Meningococcal Meningococcal 86298 02/11/ MARIN, [facility] Polysaccharide Polysaccharide 2012 A Vaccine Vaccine Hepatitis A And Hepatitis A And 24209 02/11/ MARIN, [facility] Hepatitis B Hepatitis B 2012 A (Intramuscular Use) (Intramuscular Adult Dosage Use) Adult Dosage Immunization 02/11/ MARIN, [facility] D Administration By 2011 A Injection, Each Additional Vaccine Pneumococcal Pneumococcal 43248 MARIN, [facility] Polysaccharide Polysaccharide 2012 A Vaccine 23 Valent Vaccine 23 Valent Intramuscular Intramuscular Tdap Vaccine Seven Tdap Vaccine Seven 81549 MARIN, [facility] Years Of Age And Years Of Age And 2012 A Above Above Skin Test Anergy Skin Test Anergy 98123 02/11/ MARIN, [facility] Tuberculin Tuberculin 2011 A Intradermal Intradermal Threshold Audiogram Threshold 61674 02/11/ LYNDSEY STEPHEN (Pure Tone) Audiogram (Pure 2012 A Tone) Physician Supervised LYNDSEY STEPHEN Group Educational 2011 A Services FITTING OF SPECTACLES, EXCEPT 2014 FOR APHAKIA; MONOFOCAL NEUROPSYCHOLOGICAL oD TESTING (EG, 2013 [place] CARD SORTING TEST), ADMINISTERED BY A COMPUTER, WITH QUALIFIED HEALTH PURCHASING OFFICER INTERPRETATION AND REPORT PATIENT EDUCATION, oD NOT OTHERWISE 2013 CLASSIFIED, NON-PHYSICIAN PROVIDER, INDIVIDUAL, PER SESSION THERAPEUTIC, PROPHYLACTIC, OR 2013 DIAGNOSTIC INJECTION (SPECIFY SUBSTANCE OR DRUG); SUBCUTANEOUS OR INTRAMUSCULAR IMMUNIZATION ADMINISTRATION 2011 (INCLUDES PERCUTANEOUS, INTRADERMAL, SUBCUTANEOUS, OR INTRAMUSCULAR INJECTIONS); 1 VACCINE (SINGLE OR COMBINATION VACCINE/TOXOID) INJECTION, PENICILLIN G BENZATHINE, 100,000 2011 UNITS PHYS/OTH QUALIFIED oD HEALTH CARE 2011 PROFESSIONAL QUALIFIED,EDUCATION,T RAIN,LICENSURE/REGULA TION (WHEN APPLICABLE) EDUC SER RENDERED TO PATS IN A GRP SETTING (EG,,OBESITY, OR DIABETIC INSTRUCT) COLLECTION OF VENOUS BLOOD BY VENIPUNCTURE 2011 Social History Combined list of available smoking, tobacco, and other social history from Department of Defense andVeterans Affairs facilities. Social History Type Response Date Comment Source Tobacco smoking status MT-TOBACCO FORMER USER 05/17/2021 [facility] NHIS History of tobacco use MT-TOBACCO QUIT 5 TO < 05/17/2021 [facility] 15 YRS History of tobacco use MT-TOBACCO QUIT 5 TO < 06/03/2019 [facility] 15 YRS History of tobacco use MT-TOBACCO DOESNT USE 04/08/2018 [facility] [place] 30 MIN WAKEUP This section is an DoD empty social history section. Plan of Care List of future care activities from Department of Veterans Affairs facilities. Additional future care activities may be listed in the Assessment and Plan section. Date/Time Care Activity Care Activity Detail Facility 06/07/2022 AMBULATORY - NONE AMBULATORY - NONE [facility]
--- OUTSIDE RECORDS SUMMARY | 2022-05-22 13:23 | XMS_ITS | Encounter Summary ---
:1995 Author Organization [facility] Address [address] [place] [id number] Insurance Providers: All historical and current Section Date Range: From patient's date of to the date document was created.This section includes the names of all active insurance providers for the patient. Insurance Type of Plan Start of End of Group Member Insurance Policy P atient's Provider Coverage Name Policy Policy Number ID Provider's Pedroza's Relationship Coverage Coverage Telephone Name to Policy Number Pedroza HE[employer] HEALTH HP SE Jun 09, 84 [id number] [phone] MAGALIS MARTIN PATIENT PARTNERS [facility] 2020 9 7 RADHA ALBA CE R ORGANIZAT ION W/OUT OF NETWORK BENEFITS MEDICA HIGH CENTR Jun 09 [id number] [phone] VERONICA PAT IENT DEDUCTIBL Y LNK 2018 27 2 [facility] [place] HSA W/HEALTH REIMBURSE MENT ARRANGEME NT MEDIMPACT PRESCRIPT HEALT Jun 09 [id number] [phone] SANIA DONIS,MAGALIS PATIENT RX ION H 2020 9 9 RADHA CURRAN ERS OPTUM RX PRESCRIPT CENTU Jun 09, [facility] [id number] [phone] SANIA DONIS PATIENT ION RYLIN 2018 27 1 [facility] HRA Selected Encounter This section includes the information on record at [place] for the Encounter. Date/Time Encounter Type Encounter Description Reason Provider Source May 23, 2021 12:33 Outpatient Encounter RESPIRATORY THERAPY PM IHE Encounter Template Text not used by [facility] Plan of Treatment: Future Appointments (+ 6 months) and Future Tests (+/- 45 days) The Plan of Treatment section includes future care activities for the patient from all VA treatmentfacilities. This section includes future appointments and future orders which are active, pending orscheduled.Future Appointments This section includes appointments that were scheduled to occur 6 months from the date of the Encounter, up to a maximum of 20 appointments. The data comes from all [facility]. Appointment Date/Time Appointment Type Appointment Facili ty Name May 28, 2021 09:30 AM AMBULATORY - NONE [facility] Jun 18, 2021 02:18 PM AMBULATORY - NONE [facility] Jun 19, 2021 10:00 AM AMBULATORY - NONE [facility] Jul 04, 2021 01:10 PM AMBULATORY - NONE [facility] October 25, 2021 09:16 AM AMBULATORY - NONE [facility] October 30, 2021 09:30 AM AMBULATORY - MEDICINE [facility] October 31, 2021 01:06 PM AMBULATORY [facility] Active, Pending, and Scheduled Orders This section includes a listing of several types of active, pending, and scheduled orders, including clinic medications orders, diagnostic test orders, procedure orders and consult orders; where the start date of the order is 45 days before the date of the Encounter or 45 days after the date of the Encounter. The data comes from all [facility]. Test Date/Time Test Type Test Details Facility Name May 21, 2021 11:36 Laboratory - COVID-[address] [facility] AM Chemistry Order (AMADA/DIASORIN) NASOPHARYNGEAL SWAB WC ONCE Lab Results: +/- 30 days of the encounter This section includes the Chemistry and Hematology Lab Results on record with DC for the patient. Radiology Reports and Pathology Reports are provided separately, in subsequent sections.Lab Results This section contains the Chemistry/Hematology Results that were resulted 30 days before or 30 daysafter the date of the Encounter. Date/Time Source Result Type Result - Unit Interpretation Reference Range Comment May 21, 2021 12:07 PM [facility] URINALYSIS Specim en Type: URINE No comment enter ed. Ordering Provid er: SANGEETA THOMPSON Report Released Date/Time: May 21, 2021 11:36 AM Reporting Lab: [facility] [address] [facility] [address] Performing Lab: [facility] [address] URINE COLOR LIGHT-YELLOW SPECIFIC GRAVITY 1.017 1.003-1.035 URINE BILIRUBIN NEGATIVE NEGATIVE URINE KETONES NEGATIVE NEGATIVE URINE GLUCOSE NEGATIVE <30 URINE PROTEIN 10 <20 URINE PH 7.0 5.0-8.0 URINE WBC/HPF 1 0-7 URINE BACTERIA NONE SEEN URINE RBC/HPF 2 0-3 APPEARANCE CLEAR SQUAMOUS EPITHELIAL NONE SEEN URINE BLOOD NEGATIVE NEGATIVE URINE NITRITE NEGATIVE NEGATIVE LEUKOCYTE ESTERASE NEGATIVE NEGATIVE May 21, 2021 09:28 AM [facility] CBC Specim en Type: BLOOD No comment enter ed. Ordering Provid er: SANGEETA THOMPSON Report Released Date/Time: Apr 17, 2021 11:27 AM Reporting Lab: [facility] [address] [facility] [address] Performing Lab: [facility] [address] [facility] [address] WBC 6.56 4.0-11.0 RBC 5.90 4.6-6.2 HGB 18.8 H 13.5-17.9 HCT 56.5 H 41-54 MCV 95.8 80-100 MCH 31.9 27-33 MCHC 33.3 32.0-37.5 PLT 272 150-400 MPV 10.6 H 7.4-10.4 RDW 14.5 11.5-14.5 May 21, 2021 09:28 [facility] TSH W/REFLEX TO FREE Spec imen Type: PLASMA AM T4 No comment enter ed. Ordering Provid er: SANGEETA THOMPSON Report Released Date/Time: Apr 17, 2021 11:27 AM Reporting Lab: [facility] [address] [facility] [address] Performing Lab: [facility] [address] [facility] [address] TSH 1.47 0.35-4.94 May 21, 2021 09:28 AM [facility] TESTOSTERONE Specim en Type: SERUM No comment enter ed. Ordering Provid er: SANGEETA THOMPSON Report Released Date/Time: Apr 17, 2021 11:27 AM Reporting Lab: [facility] [address] [facility] [address] Performing Lab: [facility] [address] [facility] [address] TESTOSTERONE >1500 H 221-870 May 21, 2021 09:28 AM [facility] FSH Specim en Type: PLASMA No comment enter ed. Ordering Provid er: SANGEETA THOMPSON Report Released Date/Time: Apr 17, 2021 11:27 AM Reporting Lab: [facility] [address] [facility] [address] Performing Lab: [facility] [address] [facility] [address] FSH <0.11 L 0.95-11.95 May 21, 2021 [facility] COMPREHENSIVE METABOLIC Spec imen Type: PLASMA 09:28 AM PANEL+MG No comment enter ed. Ordering Provid er: SANGEETA THOMPSON Report Released Date/Time: Apr 17, 2021 11:27 AM Reporting Lab: [facility] [address] Performing Lab: [facility] [address] CREATININE 1.2 0.7-1.2 UREA NITROGEN 10 8-26 GLUCOSE 94 74-100 SODIUM 138 136-145 POTASSIUM 4.2 3.5-5.1 CHLORIDE 106 98-107 CO2 25 22-29 CALCIUM 9.3 8.4-10.2 PROTEIN,TOTAL 7.8 6.0-8.3 ALBUMIN 4.3 3.5-5.2 BILIRUBIN, TOTAL 0.8 0.2-1.2 MAGNESIUM 1.9 1.6-2.6 ANION GAP 7 5-15 ALKALINE PHOSPHATASE 46 40-150 ALT/SGPT 35 <55 AST/SGOT 38 H <34 ESTIMATED GFR(eGFR) 73 >60 May 21, 2021 09:28 [facility] LUTEINIZING HORMONE Speci men Type: SERUM AM No comment enter ed. Ordering Provid er: SANGEETA THOMPSON Report Released Date/Time: Apr 17, 2021 11:27 AM Reporting Lab: [facility] [address] Performing Lab: [facility] [address] LUTEINIZING HORMONE <0.12 L 0.57-12.07 May 21, 2021 09:28 [facility] INSULIN LIKE GROWTH Speci men Type: SERUM AM FACTOR I Comment: REFERE NCE RANGE: -2.0 - +2.0 SD This test was developed and its analytical performance characteristics have been determined by [facility]. It has n ot been cleared or approved by FDA. This assay has been validated pursuant to the CLIA regulations and is used for clinical purposes. Test performed by [facility] [place] [address] [place] [address] Vice President Supply Chain: Saranya Sullivan MD,PHD,EMMA Test Reported by [facility], [employer] [facility], [address] [place] [address] Jovanni Dukes M.D., Ph.D., Director of Laboratories , ANSHUL [id number] Ordering Provid er: SANGEETA THOMPSON Report Released Date/Time: May 21, 2021 11:36 AM Reporting Lab: [facility] [address] [facility] [address] Performing Lab: [address] .INSULIN LIKE GF I 126 63-373 .Z-SCORE(MALE) -0.6 SEE BELOW .Z-SCORE(FEMALE) DNR May 21, 2021 09:28 AM [facility] CORTISOL Specim en Type: PLASMA No comment enter ed. Ordering Provid er: SANGEETA THOMPSON Report Released Date/Time: May 21, 2021 11:36 AM Reporting Lab: [facility] [address] [facility] [address] Performing Lab: [facility] [address] [facility] [address] CORTISOL 8.3 May 21, 2021 09:28 AM [facility] PROLACTIN Specim en Type: PLASMA No comment enter ed. Ordering Provid er: SANGEETA THOMPSON Report Released Date/Time: May 21, 2021 11:36 AM Reporting Lab: [facility] [address] [facility] [address] Performing Lab: [facility] [address] [facility] [address] PROLACTIN 13.64 <19.40 Social History: Smoking Status (Most current) and Tobacco Use (All prior to encounter date) This section includes the most current, and the historical, smoking and tobacco-related health factors from the [facility] where the Encounter took place.Current Smoking Status This section includes the most current smoking, or tobacco-related health factor, from the [facility] where the Encounter took place. Date/Time Current Smoking Status Comment Facility May 17, 2021 02:30 PM VA-TOBACCO FORMER USER MIN [facility] Tobacco Use History This section includes a history of the smoking, or tobacco- related health factors, that were collected on or before the date of the Encounter. The data comes from the [facility] facility where the Encounter took place. 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 Date/Time Encounter Note(s) Provider Source May 23, 2021 12:33 PM RESPIRATORY THERAPY NOTE: LORENZO RODRIGUEZ [facility] LOCAL TITLE: RESPIRATORY THERAPY F/U NOTE STANDARD TITLE: RESPIRATORY THERAPY NOTE DATE OF NOTE: MAY 23, 2021@12:33 ENTRY DATE: MAY 23, 2021@12:33:43 AUTHOR: RAMONA RODRIGUEZ EXP COSIGNER: URGENCY: STATUS: COMPLETED Due to COVID-19 pandemic, this PFT study is lakhwinder gorized as a low priority for the purpose of scheduling inside the [place] or for r eferral to Community [facility] and will not be scheduled at this time unless clinic ally urgent. This order above has been di scontinued. Please reorder in 90 days if clinically still indicated. If the PFT is now clinically urgent, please subm it a consult to Pulmonary Service or contact the national sales manager Pulmonary Consult team for prior authorization with supporting information to review fo r approval. Alternative approaches for similar information include clinical follow-up, chest imaging, or a non-visit (e-consult) to Pulmonary. /keturah RODRIGUEZ RRT COMPUTER TYPESETTER Signed: 05/23/2021 12:33 Receipt Acknowledged By: * AWAITING SIGNATURE * SANGEETA THOMPSON
--- OUTSIDE RECORDS SUMMARY | 2022-05-22 13:24 | XMS_ITS | Encounter Summary ---
:1995 Author Organization [facility] Address [address] [place] [id number] Insurance Providers: All historical and current Section [...] HEALTH HEALTH HP SE Jun 09, 84 [id number] [phone] MAGALIS MARTIN PATIENT PARTNERS [facility] 2020 9 7 RADHA ALBA CE R ORGANIZAT ION W/OUT OF NETWORK BENEFITS [employer] HIGH CENTR Jun 09 [id number] [phone] VERONICA PAT IENT DEDUCTIBL Y LNK 2018 27 2 [facility] LOS PLAN HSA W/HEALTH REIMBURSE MENT ARRANGEME NT MEDIMPACT PRESCRIPT HEALT Jun 09 [id number] [phone] MAGALIS MCPHERSON PATIENT RX ION H 2020 9 9 RADHA CURRAN ERS [facility] RX PRESCRIPT CENTU Jun 09 [facility] [id number] [phone] SANIA DONIS PATIENT ION RYLIN 2018 27 1 [facility] HRA Selected Encounter This section includes the information on record at [place] for the Encounter. Date/Time Encounter Type Encounter Reason Provider Source Description October 11, 2021 10:36 Outpatient PRIMARY VINICIO DELGADILLO AM Encounter CARE/MEDICINE Elizabeth IHE Encounter Template Text not used by [place] Plan of Treatment: Future Appointments (+ 6 [...] 20 appointments. The data comes from all [place] treatment facilities. Appointment Date/Time Appointment Type Appointment Facili ty Name October 25, 2021 09:16 AM AMBULATORY - NONE [facility] October 30, 2021 09:30 AM AMBULATORY - MEDICINE [facility] October 31, 2021 01:06 PM AMBULATORY - NONE [facility] Dec 11, 2021 02:30 PM AMBULATORY - MEDICINE [facility] Social History: Smoking Status (Most current) and Tobacco Use (All prior to encounter date) This section includes the most current, and the historical, smoking and tobacco-related health factors from the [place] facility where the Encounter took place.Current Smoking Status This section includes the most current smoking, or tobacco-related health factor, from the [place] facility where the Encounter took place. Date/Time Current Smoking Status Comment Facility May 17, 2021 02:30 PM VA-TOBACCO FORMER USER MIN [facility] Tobacco Use History This section includes a history of the smoking, or tobacco- related health factors, that were collected on or before the date of the Encounter. The data comes from the [place] facility where the Encounter took place. 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 Date/Time Encounter Note(s) Provider Source Nov 21, 2021 03:45 PM PRIMARY CARE SECURE MESSAGING: DEVONTE SOUZA [facility] LOCAL TITLE: PRIMARY CARE SECURE MESSAGING STANDARD TITLE: PRIMARY CARE SECURE MESSAGING DATE OF NOTE: NOV 21, 2021@15:45 ENTRY DATE: NOV 21, 2021@15:45:25 AUTHOR: KORI SOUZA EXP COSIGNER: URGENCY: STATUS: COMPLETED ------Original Message Sent: 10/11/2021 11:37 AM ET From: VINICIO DELGADILLO To: MARCOS MARTIN Subject: General:Dermatology [facility] Mr Martin, I have sent your request to Dr Thompson. He i s off this week and back next Friday. Please let me know if there is anything else I can help you with. Vinicio GARZA ------Original Message Sent: 10/11/2021 04:17 PM ET From: MARCOS MARTIN To: [facility] Primary CareAlcides (Zehra) Subject: General:Dermatology Thank you very much. I look forward to hearing f rom the doctor. Very Respectfully, Shahbaz Martin ------Original Message Sent: 11/21/2021 12:25 AM ET From: MARCOS MARTIN To: [facility] Primary CareAlcides) Subject: General:Dermatology Good evening, I'm curious to see if I can get a referr al to [place] continue to have cystic acne cover my entire face and would like to get this situated sooner than later. V/R Shahbaz Martin ------Original Message Sent: 11/21/2021 12:25 AM ET From: MARCOS MARTIN To: [facility] Primary CareAlcides (Zehra) Subject: General:Dermatology Good evening, I'm curious to see if I can get a referr al to seek [place] I continue to have cystic acne cover my entire face and would like to get this situated sooner than later. V/R Shahbaz Martin ------Original Message Sent: 11/21/2021 04:45 PM ET From: KORI SOUZA To: MARCOS MARTIN Subject: General:Dermatology Hello, Typically that is something Derm can treat here at the [facility]. I will forward this to your provider for review. Kori Hand Registered Nurse /kobi/ KORI SOUZA, BSN, RN REGISTERED NURSE Signed: 11/21/2021 15:45 Receipt Acknowledged By: * AWAITING SIGNATURE * SANGEETA THOMPSON October 11, 2021 10:36 AM PRIMARY CARE SECURE MESSAGING: Jenni DELGADILLO [facility] LOCAL TITLE: PRIMARY CARE SECURE MESSAGING STANDARD TITLE: PRIMARY CARE SECURE MESSAGING DATE OF NOTE: OCTOBER 11, 2021@10:36 ENTRY DATE: OCTOBER 11, 2021@10:36:11 AUTHOR: VINICIO DELGADILLO EXP COSIGNER: URGENCY: STATUS: COMPLETED ------Original Message Sent: 10/10/2021 06:44 PM ET From: MARCOS MARTIN To: [facility] Primary CareAlcides (Grape) Subject: General:Dermatology I am trying to get a referral to get a wart pa viry(on right side of ear) and obtain accutane for my ongoing acne conditions /kobi/ VINICIO DELGADILLO RN Signed: 10/11/2021 10:36 Receipt Acknowledged By: * AWAITING SIGNATURE * SANGEETA THOMPSON
--- OUTSIDE RECORDS SUMMARY | 2022-05-22 13:24 | XMS_ITS | Encounter Summary ---
:[address] [facility] Address [address] [place] [address] Insurance Providers: All historical and current Section [...] HEALTH HEALTH HP SE Jun 09, 84 [id number] [phone] MAGALIS MARTIN PATIENT PARTNERS [facility] 2020 9 7 RADHA ALBA CE R ORGANIZAT ION W/OUT OF NETWORK BENEFITS [facility] Jun 09 [id number] [phone] VERONICA PAT IENT DEDUCTIBL Y LNK 2018 27 2 MARGARITA [facility] LOS PLAN HSA W/HEALTH REIMBURSE MENT ARRANGEME NT MEDIMPACT PRESCRIPT HEALT Jun 09 [id number] [phone] MAGALIS MCPHERSON PATIENT RX ION H 2020 9 9 RADHA CURRAN ERS [facility] RX [facility]CRIPT [facility] Jun 09 [facility] [id number] [phone] SANIA DONIS PATIENT ION RYLIN 2018 27 1 MARGARITA FLOWER LOS [facility] HRA Selected Encounter This section includes the information on record at [place] for the Encounter. Date/Time Encounter Type Encounter Description Reason Provider Source May 22, 2021 02:10 Outpatient Encounter PRIMARY CARE/MEDICINE PM IHE Encounter Template Text not used by [place] Plan of Treatment: Future Appointments (+ 6 [...] 20 appointments. The data comes from all [facility]. Appointment Date/Time Appointment Type Appointment Facili ty Name May 28, 2021 09:30 AM AMBULATORY - NONE [facility] Jun 18, 2021 02:18 PM [facility]ORY - [facility] Jun 19, 2021 10:00 AM [facility]ULATORY - [facility] Jul 04, 2021 01:10 PM AMBULATORY - NONE [facility] October 25, 2021 09:16 AM AMBULATORY - NONE [facility] October 30, 2021 09:30 AM AMBULATORY - MEDICINE [facility] October 31, 2021 01:06 PM [facility] Active, Pending, and Scheduled Orders This section includes a listing of several types of active, pending, and scheduled orders, including clinic medications orders, diagnostic test orders, procedure orders and consult orders; where the start date of the order is 45 days before the date of the Encounter or 45 days after the date of the Encounter. The data comes from all [facility]. Test Date/Time Test Type Test Details Facility Name May 21, 2021 11:36 Laboratory - COVID-19 SCREEN PANEL [facility] AM Chemistry Order (AMADA/DIASORIN) NASOPHARYNGEAL SWAB WC ONCE Lab Results: +/- 30 days of the encounter This section includes the Chemistry and Hematology Lab Results on record with [facility] for the [facility]. Radiology Reports and Pathology Reports are provided separately, in subsequent sections.Lab Results This section contains the Chemistry/Hematology Results that were resulted 30 days before or 30 daysafter the date of the Encounter. Date/Time Source Result Type Result - Unit Interpretation Reference Range Comment May 21, 2021 12:07 PM [facility] URINALYSIS Specim en Type: URINE No comment enter ed. Ordering Provid er: SANGEETA THOMPSON Report Released Date/Time: May 21, 2021 11:36 AM Reporting Lab: [facility] [address] [facility] [place] [place] [facility] [address] Performing Lab: [facility] [address] URINE COLOR LIGHT-YELLOW SPECIFIC GRAVITY 1.017 1.003-1.035 URINE BILIRUBIN NEGATIVE NEGATIVE URINE KETONES NEGATIVE NEGATIVE URINE GLUCOSE NEGATIVE <30 URINE PROTEIN 10 <20 URINE PH 7.0 5.0-8.0 URINE WBC/HPF 1 0-7 URINE BACTERIA NONE SEEN URINE RBC/HPF 2 0-3 APPEARANCE CLEAR SQUAMOUS EPITHELIAL NONE SEEN URINE BLOOD NEGATIVE NEGATIVE URINE NITRITE NEGATIVE NEGATIVE LEUKOCYTE ESTERASE NEGATIVE NEGATIVE May 21, 2021 09:28 AM [facility] CBC Specim en Type: BLOOD No comment enter ed. Ordering Provid er: SANGEETA THOMPSON Report Released Date/Time: Apr 17, 2021 11:27 AM Reporting Lab: [facility] [address] [facility] [address] Performing Lab: [facility] [address] [facility] [address] WBC 6.56 4.0-11.0 RBC 5.90 4.6-6.2 HGB 18.8 H 13.5-17.9 HCT 56.5 H 41-54 MCV 95.8 80-100 MCH 31.9 27-33 MCHC 33.3 32.0-37.5 PLT 272 150-400 MPV 10.6 H 7.4-10.4 RDW 14.5 11.5-14.5 May 21, 2021 09:28 [facility] TSH W/REFLEX TO FREE Spec imen Type: PLASMA AM T4 No comment enter ed. Ordering Provid er: SANGEETA THOMPSON Report Released Date/Time: Apr 17, 2021 11:27 AM Reporting Lab: [facility] [address] [facility] [address] Performing Lab: [facility] [address] [facility] [address] TSH 1.47 0.35-4.94 May 21, 2021 09:28 AM [facility] TESTOSTERONE Specim en Type: SERUM No comment enter ed. Ordering Provid er: SANGEETA THOMPSON Report Released Date/Time: Apr 17, 2021 11:27 AM Reporting Lab: [facility] [address] [facility] [address] Performing Lab: [facility] [address] [facility] [address] TESTOSTERONE >1500 H 221-870 May 21, 2021 [facility] COMPREHENSIVE METABOLIC Spec imen Type: PLASMA 09:28 AM PANEL+MG No comment enter ed. Ordering Provid er: SANGEETA THOMPSON Report Released Date/Time: Apr 17, 2021 11:27 AM Reporting Lab: [facility] [address] [facility] [address] Performing Lab: [facility] [address] [facility] [address] CREATININE 1.2 0.7-1.2 UREA NITROGEN 10 8-26 GLUCOSE 94 74-100 SODIUM 138 136-145 POTASSIUM 4.2 3.5-5.1 CHLORIDE 106 98-107 CO2 25 22-29 CALCIUM 9.3 8.4-10.2 PROTEIN,TOTAL 7.8 6.0-8.3 ALBUMIN 4.3 3.5-5.2 BILIRUBIN, TOTAL 0.8 0.2-1.2 MAGNESIUM 1.9 1.6-2.6 ANION GAP 7 5-15 ALKALINE PHOSPHATASE 46 40-150 ALT/SGPT 35 <55 AST/SGOT 38 H <34 ESTIMATED GFR(eGFR) 73 >60 May 21, 2021 09:28 AM [facility] FSH Specim en Type: PLASMA No comment enter ed. Ordering Provid er: SANGEETA THOMPSON Report Released Date/Time: Apr 17, 2021 11:27 AM Reporting Lab: [facility] [address] [facility] [address] Performing Lab: [facility] [address] [facility] [address] FSH <0.11 L 0.95-11.95 May 21, 2021 09:28 [facility] LUTEINIZING HORMONE Speci men Type: SERUM AM No comment enter ed. Ordering Provid er: SANGEETA THOMPSON Report Released Date/Time: Apr 17, 2021 11:27 AM Reporting Lab: [facility] [address] [facility] [address] Performing Lab: [facility] [address] [facility] [address] LUTEINIZING HORMONE <0.12 L 0.57-12.07 May 21, 2021 09:28 [facility] INSULIN LIKE GROWTH Speci men Type: SERUM AM FACTOR I Comment: REFERE NCE RANGE: -2.0 - +2.0 SD This test was developed and its analytical performance characteristics have been determined by [facility]. It has n ot been cleared or approved by FDA. This assay has been validated pursuant to the CLIA regulations and is used for clinical purposes. Test performed by [facility] [place] [address] [place] [address] Risk Control Director: Saranya Sullivan MD,PHD,EMMA Test Reported by [facility] [place] [employer] [facility], [address] [place] [address] Jovanni Dukes M.D., Ph.D., Director of Laboratories [phone], EULALIOIA [id number] Ordering Provid er: SANGEETA THOMPSON Report Released Date/Time: May 21, 2021 11:36 AM Reporting Lab: [facility] [address] [facility] [address] Performing Lab: [address] .INSULIN LIKE GF I 126 63-373 .Z-SCORE(MALE) -0.6 SEE BELOW .Z-SCORE(FEMALE) DNR May 21, 2021 09:28 AM [facility] CORTISOL Specim en Type: PLASMA No comment enter ed. Ordering Provid er: SANGEETA HTOMPSON Report Released Date/Time: May 21, 2021 11:36 AM Reporting Lab: [facility] [address] [facility] [address] Performing Lab: [facility] [address] [facility] [address] CORTISOL 8.3 May 21, 2021 09:28 AM [facility] PROLACTIN Specim en Type: PLASMA No comment enter ed. Ordering Provid er: SANGEETA THOMPSON Report Released Date/Time: May 21, 2021 11:36 AM Reporting Lab: [facility] [address] [facility] [address] Performing Lab: [facility] [address] [facility] [address] PROLACTIN 13.64 <19.40 Social History: Smoking Status (Most current) and Tobacco Use (All prior to encounter date) This section includes the most current, and the historical, smoking and tobacco-related health factors from the [facility] where the Encounter took place.Current Smoking Status This section includes the most current smoking, or tobacco-related health factor, from the [facility] where the Encounter took place. Date/Time Current Smoking Status Comment Facility May 17, 2021 02:30 PM VA-TOBACCO FORMER USER [facility] Tobacco Use History This section includes a history of the smoking, or tobacco- related health factors, that were collected on or before the date of the Encounter. The data comes from the [place] facility where the Encounter took place. Date/Time Smoking Status/Tobacco Use Comment Facil ity May 17, 2021 02:30 PM VA-TOBACCO QUIT 5 TO < 15 YRS [facility] Jun 03, 2019 12:17 PM VA-TOBACCO FORMER USER [facility] Jun 03, 2019 12:17 PM VA-TOBACCO QUIT 5 TO < 15 YRS [facility] Apr 08, 2018 08:52 AM VA-TOBACCO DOESNT USE WI 30 MIN [facility] WAKEUP Apr 08, 2018 08:52 AM VA-TOBACCO USE 1 TO < 5 YEARS [facility] Apr 08, 2018 08:52 AM VA-TOBACCO USE ADVICE HOLLIENorberto [facility] Apr 08, 2018 08:52 AM VA-TOBACCO 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 Date/Time Encounter Note(s) Provider Source May 22, 2021 02:10 PM REPORT OF CONTACT: ANDRES BLANK [facility] LOCAL TITLE: APPOINTMENT SCHEDULING NOTE STANDARD TITLE: REPORT OF CONTACT DATE OF NOTE: MAY 22, 2021@14:10 ENTRY DATE: MAY 22, 2021@14:10:54 AUTHOR: ANDRES BLANK EXP COSIGNER: URGENCY: STATUS: COMPLETED Attempt to schedule return to clinic 1st Contact: Called at: D Left message Voicemail Phone number left for to call back: [phone] 2nd Contact: Sent letter by regular [place] mail to address on areli MARCOS Diehl [address] [place], [place] [address] If Pierson calls back, schedule appointment for : XRAY APPOINTMENT: KNEE LEFT 3 VIEWS STANDING LEF T PID 05/21/21 Is the RTC marked as no later than? Inna /kobi/ ANDRES BLANK ADVANCED MSA Signed: 05/22/2021 14:11
--- OUTSIDE RECORDS SUMMARY | 2022-05-22 13:24 | XMS_ITS | Encounter Summary ---
:1995 Author Organization [facility] Address [address] [place] [address] Insurance Providers: All historical and current Section [...] HEALTH HEALTH HP SE Jun 09, 84 [id number] [phone] MAGALIS MARTIN PATIENT PARTNERS [facility] 2020 9 7 RADHA ALBA CE R ORGANIZAT ION W/OUT OF NETWORK BENEFITS [facility] CENTR Jun 09 [id number] [phone] VERONICA PAT IENT DEDUCTIBL Y LNK 2018 27 2 MARGARITA FLOWER [facility] LOS PLAN HSA W/HEALTH REIMBURSE MENT ARRANGEME NT MEDIMPACT PRESCRIPT HEALT Jun 09 [id number] [phone] MAGALIS MCPHERSON PATIENT RX ION H 2020 9 9 RADHA CURRAN ERS [facility] RX PRESCRIPT CENTU Jun 09, [facility] [id number] [phone] SANIA DONIS PATIENT ION RYLIN 2018 27 1 MARGARITA FLOWER [facility] HRA Selected Encounter This section includes the information on record at [place] for the Encounter. Date/Time Encounter Type Encounter Reason Provider Source Description Jul 03, 2021 HC PRO PHONE TELEPHONE TRIAGE ICD-10-CM Z71.89 OBINNA RAMIREZ 08:51 AM CALL 5-10 MIN Other specified TINY C counseling with Provider Comments: Other specified counseling IHE Encounter Template Text not used by [facility] Assessments - Encounter Diagnoses This section includes the primary and secondary diagnoses documented for the Encounter. Date/Time Primary/Secondary Diagnosis Name Provider Source Diagnosis Jul 03, 2021 PRIMARY Other specified OBINNA RAMIREZ [place] 08:51 AM counseling TINY Rivera [facility] Plan of Treatment: Future Appointments (+ 6 months) and Future Tests (+/- 45 days) The Plan of Treatment section includes future care activities for the [facility] [place] [facility] This section includes future appointments and future orders which are active, pending orscheduled.Future Appointments This section includes appointments that were scheduled to occur 6 months from the date of the Encounter, up to a maximum of 20 appointments. The data comes from all [facility]. Appointment Date/Time Appointment Type Appointment Facili ty Name Jul 04, 2021 01:10 PM AMBULATORY - NONE [facility] October 25, 2021 09:16 AM AMBULATORY [facility] October 30, 2021 09:30 AM AMBULATORY - MEDICINE [facility] October 31, 2021 01:06 PM AMBULATORY [facility] Dec 11, 2021 02:30 PM AMBULATORY MEDICINE [facility] Active, Pending, and Scheduled Orders This section includes a listing of several types of active, pending, and scheduled orders, including clinic medications orders, diagnostic test orders, procedure orders and consult orders; where the start date of the order is 45 days before the date of the Encounter or 45 days after the date of the Encounter. The data comes from all [facility]. Test Date/Time Test Type Test Details Facility Name May 21, 2021 11:36 Laboratory - COVID-[address] [facility] AM Chemistry Order (AMADA/DIASORIN) NASOPHARYNGEAL SWAB WC ONCE Social History: Smoking Status (Most current) and Tobacco Use (All prior to encounter date) This section includes the most current, and the historical, smoking and tobacco-related health factors from the [facility] where the Encounter took place.Current Smoking Status This section includes the most current smoking, or tobacco-related health factor, from the [place] facility where the Encounter took place. Date/Time Current Smoking Status Comment Facility May 17, 2021 02:30 PM VA-TOBACCO FORMER USER [facility] Tobacco Use History This section includes a history of the smoking, or tobacco- related health factors, that were collected on or before the date of the Encounter. The data comes from the [place] facility where the Encounter took place. Date/Time Smoking Status/Tobacco Use Comment [facility] May 17, 2021 02:30 PM VA-TOBACCO QUIT 5 TO < 15 YRS [facility] Jun 03, 2019 12:17 PM VA-TOBACCO FORMER USER [facility] Jun 03, 2019 12:17 PM VA-TOBACCO QUIT 5 TO < 15 YRS [facility] Apr 08, 2018 08:52 AM VA-TOBACCO DOESNT USE WI 30 MIN [facility] WAKEUP Apr 08, 2018 08:52 AM VA-TOBACCO USE 1 TO < 5 YEARS [facility] Apr 08, 2018 08:52 AM VA-TOBACCO USE ADVICE [facility] Apr 08, 2018 08:52 AM VA-TOBACCO USE SAND BUFFER NO [facility] Apr 08, 2018 08:52 AM VA-TOBACCO USE MED [facility] Apr 08, 2018 08:52 AM VA-TOBACCO USER SOME DAYS [facility] Encounter Notes: All associated encounter notes This section contains the clinical notes associated to the Encounter. Date/Time Encounter Note(s) Provider Source Jul 03, 2021 08:51 AM NURSING TELEPHONE ENCOUNTER NOTE: CARL RAMIREZ [facility] LOCAL TITLE: TELEPHONE CARE NURSE TRIAGE C STANDARD TITLE: NURSING TELEPHONE ENCOUNTER NOTE DATE OF NOTE: JUL 03, 2021@08:51:01 ENTRY DATE: JUL 03, 2021@09:04:23 AUTHOR: CARL RAMIREZ EXP COSIGNER: URGENCY: STATUS: COMPLETED TELEPHONE CARE NURSE TRIAGE Has ADDENDA Chief Complaint: Shoulder Injury The following identifiers were used to verify th is patient: . SSN. Comments: Clinical Contact/Call C enter Coronavirus Disease 2018 (COVID- 19) Screen, dominique. October 2020 DIAGNOSIS AND TESTING STATUS: Has been diagnosed with COVID-19: () Yes* Date: (continue screening) (x) No (Continue Screening) Comment(s): Is [place] waiting for COVID-19 test results: () Yes (Continue Screening) (x) No (Continue Screening) Comment: SCREEN: Signs and Symptoms: a. Fever or chills: () Yes Check all that apply: () Fever () Chills (x) No Comment(s): b. New or worsening cough or shortness of breat h: () Yes Check all that apply: () Cough () Shortness of breath (Dyspnea) x() No Comment(s): c. Any cold or flu-like symptoms: () Yes Check all that apply: () Cold like symptoms () Runny Nose (Rhinorrhea) () Sore Throat () Flu-like symptoms () Fatigue () Muscle Pain (Myalgia) (x) No Comment(s): d. New onset diarrhea, nausea or vomiting: () Yes Check all that apply: () Diarrhea () Nausea () Vomiting (x) No Comment(s): e. New onset headache, loss of taste or loss of smell () Yes Check all that apply: () Headache () Loss of taste () Loss of smell (x) No Comment(s): EXPOSURE: Exposure (within 6 feet for more than 15 minute s) in the last two weeks (14 days) to someone with known or suspected jayant e of COVID-19: () Yes (x) No Comment(s): SCREEN RESULT: Any symptom or exposure= positiv e screen () POSITIVE SCREEN: Patient has a Positive symp vega and/or exposure. Follow- up required. (x) Negative Screen NURSES NOTES PATIENT CONCERN/DURATION/ONSET: [place] phones in last night he was work ing out in the gym. After his work out he developed shoulder pain after his work out. H e is not sure if the shoulder is swollen but it is not alli d. With any motion or rotation he has 8/10 pain. If he keeps his shoulder still by his side he has n o pain. He iced the shoulder last night right when they pain began but it has not subsided and is possibly worse this morning. WHAT HAS PATIENT TRIED TO TREAT THE SYMPTOMS: Re st and ice. He is using a shoulder sling he fashioned himself and as long as shoulder remains by his side as is completely still he is pain free. HISTORY/PREVIOUS TREATMENT: See above. WHAT IS PATIENT GOAL FOR THE CALL: Nurse advice DID YOU CONSIDER USING CCC L IP (TELE or VVC): Recommending ER Evaluation for 8/ 10 shoulder pain with any rotation and elevation . 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 unsure he can make the long drive to [place] he was provided with t he phone number to report a community ER Visit and encouraged to do this. Best contact for is (Verified). verbalizes understanding of home care ad vice listed below. (Caller could accurately sum marize the agreed upon plan of care as discussed in the education log portion of this note.) Per policy, automated recommendations for an janeth ointment indicates an interaction (virtual or in-person) with the care team. Author: CARL RAMIREZ Caller Area: *[facility] The patient, MARCOS MARTIN ([id number]) Phon e: called the call center. Caller Response: ER- OTHER FINANCIAL DISCLAIMER The following disclaimer was read to the caller: advised that recommendation for care pro vided during the call does not constitute an approval or authorization for payment by the [place] or its staff. Triage Staff provided the [facility] Call Center [phone] number and instruction for notifica tion of ER visit within 72 hours. Class Code: Other specified counseling. Contact By not following the recomme nded advice could make your symptoms worse, or even life threatening. Advised to contact Telephone Care for any questions, concerns, new or worsening symptoms; services available 30/12. Evaluation/Management Code: HC PRO PHONE CALL 5- 10 MIN ([phone]). Starting at: 07/03/2021 @ 8:51:01 AM Ending at: 07/03/2021 @ 8:58:12 AM Length: 7 minutes. Nurse Notes: Protocol Used: Shoulder Injury Protocol-Based Disposition: Go to ED Now Positive Triage Question: * Can't move injured shoulder at all Care Advice Discussed: * First Aid Advice for Suspe cted Shoulder Fracture (Broken Bone) or Dislocation (Out of Joint) - Use a sling to support the arm. Make the slin g with a triangular piece of cloth. * Another Adult Should Drive - It is better and safer if another adult drive s instead of you. * Nothing by Mouth - Do not eat or drink anything for now. - (Reason: condition may need surgery and gener al anesthesia) Negative Triage Questions: * Serious injury with multiple fractures (broken bones) * [1] Major bleeding (e.g., actively dripping or spurting) AND [2] can't be stopped * Bullet wound, stabbed by knife, or other stephen us penetrating wound * Sounds like a life-threatening emergency to e triager Patient's Email Address: [facility] Provider Info: [facility] ([id number]) PACT: MSP PACT GRAPE (Focus: Womens Health ) Designated Pcp: Ankit Thompson PH ONE:[phone] PAGER:[phone] [place] Purser: Jackie Hazel PHONE:[phone] Clinical Associate: Kuldip Keys PHON E:[phone] Turf Manager: Rosalie Damon PHONE:[phone] PACT Clinical Pharmacist: Leelee López MARJORIE:[phone] Clinical POC: Administrative POC: MH: ROBERTO BHIP L V23 ([facility]) Psychologist Vannessa Garcia PHONE :[phone] PAGER:[phone] Type of call: TC SYMPTOM ER. /kobi/ MORIS SPRINGER, RN VISN 23 Daytime printed circuit board drafter Signed: 07/03/2021 09:04 Receipt Acknowledged By: * AWAITING SIGNATURE * ANKIT THOMPSON * AWAITING SIGNATURE * JACKIE HAZEL 07/03/2021 ADDENDUM STATUS: COMPLETED [place]'s right shoulder is the injured one. /kobi/ MORIS SPRINGER, RN VISN 23 Daytime printed circuit board drafter Signed: 07/03/2021 09:05
--- OUTSIDE RECORDS SUMMARY | 2022-05-22 13:24 | XMS_ITS | Encounter Summary ---
:1995 Author Organization [facility] Address [address] [place] [id number] Insurance Providers: All historical and current Section [...] HEALTH HEALTH HP SE Jun 09, 84 [id number] [phone] MAGALIS MARTIN PATIENT PARTNERS [facility] 2020 9 7 RADHA ALBA CE R ORGANIZAT ION W/OUT OF NETWORK BENEFITS [facility] Jun 09 [id number] [phone] VERONICA CUETO IENT DEDUCTIBL Y LNK 2018 27 2 MARGARITA [facility] [place] HSA W/HEALTH REIMBURSE MENT ARRANGEME NT MEDIMPACT PRESCRIPT HEALT Jun 09 [id number] [phone] MAGALIS MCPHERSON PATIENT RX ION H 2020 9 9 RADHA CURRAN ERS OPTUM RX PRESCRIPT CENTU Jun 09, [facility] [id number] [phone] SANIA DONIS PATIENT ION RYLIN 2018 27 1 MARGARITA [facility]OWER [facility] Selected Encounter This section includes the information on record at [place] for the Encounter. Date/Time Encounter Type Encounter Reason Provider Source Description Jun 18, 2021 02:18 Outpatient ADMIN PAT GUTIERREZ PARK PM Encounter (MASNONCT) IHE Encounter Template Text not used by [...] 20 appointments. The data comes from all [facility]. Appointment Date/Time Appointment Type Appointment Facili ty Name Jun 19, 2021 10:00 AM AMBULATORY - [facility] Jul 04, 2021 01:10 PM AMBULATORY [facility] October 25, 2021 09:16 AM AMBULATORY [facility] October 30, 2021 09:30 AM AMBULATORY - MEDICINE [facility] CS October 31, 2021 01:06 PM AMBULATORY [facility] Dec 11, 2021 02:30 PM [facility] Active, Pending, and Scheduled Orders This section includes a listing of several types of active, pending, and scheduled orders, including clinic medications orders, diagnostic test orders, procedure orders and consult orders; where the start date of the order is 45 days before the date of the Encounter or 45 days after the date of the Encounter. The data comes from all [facility]. Test Date/Time Test Type Test Details Facility Name May 21, 2021 11:36 Laboratory - COVID-19 SCREEN PANEL [facility] AM Chemistry Order (AMADA/DIASORIN) NASOPHARYNGEAL SWAB WC ONCE Lab Results: +/- 30 days of the encounter This section includes the Chemistry and Hematology Lab Results on record with [place] for the patient. Radiology Reports and Pathology Reports are provided separately, in subsequent sections.Lab Results This section contains the Chemistry/Hematology Results that were resulted 30 days before or 30 daysafter the date of the Encounter. Date/Time Source Result Type Result - Unit Interpretation Reference Range Comment May 21, 2021 12:07 PM [facility] URINALYSIS Specim en Type: URINE No comment enter ed. Ordering Provid er: SANGEETA THOMPSON Report Released Date/Time: May 21, 2021 11:36 AM Reporting Lab: [facility] [address] Performing Lab: [facility] [address] URINE COLOR LIGHT-YELLOW SPECIFIC GRAVITY 1.017 1.003-1.035 URINE BILIRUBIN NEGATIVE NEGATIVE URINE KETONES NEGATIVE NEGATIVE URINE GLUCOSE NEGATIVE <30 URINE PROTEIN 10 <20 URINE PH 7.0 5.0-8.0 URINE WBC/HPF 1 0-7 URINE BACTERIA NONE SEEN URINE RBC/HPF 2 0-3 APPEARANCE CLEAR SQUAMOUS EPITHELIAL NONE SEEN URINE BLOOD NEGATIVE NEGATIVE URINE NITRITE NEGATIVE NEGATIVE LEUKOCYTE ESTERASE NEGATIVE NEGATIVE May 21, 2021 09:28 AM [facility] CBC Specim en Type: BLOOD No comment enter ed. Ordering Provid er: SANGEETA THOMPSON Report Released Date/Time: Apr 17, 2021 11:27 AM Reporting Lab: [facility] [address] [facility] [address] Performing Lab: [facility] [address] [facility] [address] WBC 6.56 4.0-11.0 RBC 5.90 4.6-6.2 HGB 18.8 H 13.5-17.9 HCT 56.5 H 41-54 MCV 95.8 80-100 MCH 31.9 27-33 MCHC 33.3 32.0-37.5 PLT 272 150-400 MPV 10.6 H 7.4-10.4 RDW 14.5 11.5-14.5 May 21, 2021 09:28 [facility] TSH W/REFLEX TO FREE Spec imen Type: PLASMA AM T4 No comment enter ed. Ordering Provid er: SANGEETA THOMPSON Report Released Date/Time: Apr 17, 2021 11:27 AM Reporting Lab: [facility] [address] [facility] [address] Performing Lab: [facility] [address] [facility] [address] TSH 1.47 0.35-4.94 May 21, 2021 09:28 AM [facility] TESTOSTERONE Specim en Type: SERUM No comment enter ed. Ordering Provid er: SANGEETA THOMPSON Report Released Date/Time: Apr 17, 2021 11:27 AM Reporting Lab: [facility] [address] [facility] [address] Performing Lab: [facility] [address] [facility] [address] TESTOSTERONE >1500 H 221-870 May 21, 2021 09:28 AM [facility] FSH Specim en Type: PLASMA No comment enter ed. Ordering Provid er: SANGEETA THOMPSON Report Released Date/Time: Apr 17, 2021 11:27 AM Reporting Lab: [facility] [address] [facility] [address] Performing Lab: [facility] [address] [facility] [address] FSH <0.11 L 0.95-11.95 May 21, 2021 [facility] COMPREHENSIVE METABOLIC Spec imen Type: PLASMA 09:28 AM PANEL+MG No comment enter ed. Ordering Provid er: SANGEETA THOMPSON Report Released Date/Time: Apr 17, 2021 11:27 AM Reporting Lab: [facility] [address] Performing Lab: [facility] [address] CREATININE 1.2 0.7-1.2 UREA NITROGEN 10 8-26 GLUCOSE 94 74-100 SODIUM 138 136-145 POTASSIUM 4.2 3.5-5.1 CHLORIDE 106 98-107 CO2 25 22-29 CALCIUM 9.3 8.4-10.2 PROTEIN,TOTAL 7.8 6.0-8.3 ALBUMIN 4.3 3.5-5.2 BILIRUBIN, TOTAL 0.8 0.2-1.2 MAGNESIUM 1.9 1.6-2.6 ANION GAP 7 5-15 ALKALINE PHOSPHATASE 46 40-150 ALT/SGPT 35 <55 AST/SGOT 38 H <34 ESTIMATED GFR(eGFR) 73 >60 May 21, 2021 09:28 [facility] LUTEINIZING HORMONE Speci men Type: SERUM AM No comment enter ed. Ordering Provid er: SANGEETA THOMPSON Report Released Date/Time: Apr 17, 2021 11:27 AM Reporting Lab: [facility] [address] Performing Lab: [facility] [address] LUTEINIZING HORMONE <0.12 L 0.57-12.07 May 21, 2021 09:28 [facility] INSULIN LIKE GROWTH Speci men Type: SERUM AM FACTOR I Comment: REFERE NCE RANGE: -2.0 - +2.0 SD This test was developed and its analytical performance characteristics have been determined by [employer] [facility]. It has n ot been cleared or approved by FDA. This assay has been validated pursuant to the CLIA regulations and is used for clinical purposes. Test performed by [employer] [place] [address] [place] [address] [employer] Technician: Saranya Sullivan MD,PHD,EMMA Test Reported by [facility], [facility], [address] [place] [address] Jovanni Dukes M.D., Ph.D., Director of Laboratories , EULALIO[place] [id number] Ordering Provid er: SANGEETA THOMPSON Report Released Date/Time: May 21, 2021 11:36 AM Reporting Lab: [facility] [address] [facility] [address] Performing Lab: [address] .INSULIN LIKE GF I 126 63-373 .Z-SCORE(MALE) -0.6 SEE BELOW .Z-SCORE(FEMALE) DNR May 21, 2021 09:28 AM [facility] CORTISOL Specim en Type: PLASMA No comment enter ed. Ordering Provid er: SANGEETA THOMPSON Report Released Date/Time: May 21, 2021 11:36 AM Reporting Lab: [facility] [address] [facility] [address] Performing Lab: [facility] [address] [facility] [address] CORTISOL 8.3 May 21, 2021 09:28 AM [facility] PROLACTIN Specim en Type: PLASMA No comment enter ed. Ordering Provid er: SANGEETA THOMPSON Report Released Date/Time: May 21, 2021 11:36 AM Reporting Lab: [facility] [address] [facility] [address] Performing Lab: [facility] [address] [facility] [address] PROLACTIN 13.64 <19.40 Social History: Smoking Status (Most current) and Tobacco Use (All prior to encounter date) This section includes the most current, and the historical, smoking and tobacco-related health factors from the [place] facility where the Encounter took place.Current Smoking Status This section includes the most current smoking, or tobacco-related health factor, from the [facility] where the Encounter took place. Date/Time Current Smoking Status Comment Facility May 17, 2021 02:30 PM [place]-TOBACCO FORMER USER MIN [facility] Tobacco Use History This section includes a history of the smoking, or tobacco- related health factors, that were collected on or before the date of the Encounter. The data comes from the [place] facility where the Encounter took place. Date/Time Smoking Status/Tobacco Use Comment Facil ity May 17, 2021 02:30 PM VA-TOBACCO QUIT 5 TO < 15 YRS [facility] Jun 03, 2019 12:17 PM VA-TOBACCO FORMER USER MIN [facility] Jun 03, 2019 12:17 PM VA-TOBACCO QUIT 5 TO < 15 YRS [facility] Apr 08, 2018 08:52 AM VA-TOBACCO DOESNT USE WI 30 MIN [facility] Apr 08, 2018 08:52 AM VA-TOBACCO USE 1 TO < 5 YEARS [facility] Apr 08, 2018 08:52 AM [facility]BACCO [facility] Apr 08, 2018 08:52 AM 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 Date/Time Encounter Note(s) Provider Source Jun 15, 2021 02:18 PM NONVA NOTE: JOE DUKES [facility] LOCAL TITLE: COMMUNITY CARE-KOMAL SELF PRESENTIN G CARE COORD PLAN STANDARD TITLE: NONVA NOTE DATE OF NOTE: JUN 15, 2021@14:18 ENTRY DATE: JUN 18, 2021@14:18:37 AUTHOR: JOE DUKES EXP COSIGNER: URGENCY: STATUS: COMPLETED COMMUNITY CARE-KOMAL SELF PRESENTING CARE CO ORD PLAN NOTE Has ADDENDA Emergency Notification Intake Date Presenting to the Facility: Jun Method of Contact: Notified from [employer] worklist Notification ID: [id number] [facility] Referral #: [facility] Hospital Name: Hospital: - [facility] Address: [address] City: [place] State: [place] Zip Code: [address] Phone : [facility] Point of Contact: Name: Phone: Chief complaint: Laceration Primary Diagnosis: Disposition Unknown at time of intake note entry /kobi/ JOE DUKES BULK PALLET BUILDER (AOD) Signed: 06/18/2021 14:21 Receipt Acknowledged By: 06/20/2021 11:25 /kobi/ GUTIERREZ GONZALEZ RN RCM/CCUM 06/20/2021 ADDENDUM STATUS: COMPLETED Fax sent for records /kobi/ GUTIERREZ GONZALEZ RN RCM/CCUM Signed: 06/20/2021 11:30 Receipt Acknowledged By: 06/20/2021 11:54 /kobi/ MORIS BENTON, RN REGISTERED NURSE for AMANDA HAZEL 06/15/2021 ADDENDUM STATUS: COMPLETED Vist[facility] Imaging Scanned Document - Addendum. [facility] 06/15/21 dx laceration cut off part of thumb Records via fax, will scan and upload to this no te. Please write for any needed consults. /kobi/ GUTIERREZ GONZALEZ RN RCM/CCUM Signed: 06/20/2021 12:27 Receipt Acknowledged By: * AWAITING SIGNATURE * AMANDA HAZEL * AWAITING SIGNATURE * SANGEETA THOMPSON
--- OUTSIDE RECORDS SUMMARY | 2022-05-22 13:24 | XMS_ITS | Encounter Summary ---
:1995 Author Organization [facility] Address [address] [place] [phone] Insurance Providers: All historical and current Section [...] HEALTH HEALTH HP SE Jun 09, 84 [id number] [phone] MAGALIS MARTIN PATIENT PARTNERS [facility] 2020 9 7 RADHA ALBA CE R ORGANIZAT ION W/OUT OF NETWORK BENEFITS [facility] H[facility] CENTR Jun 09 [id number] [phone] VERONICA PAT IENT DEDUCTIBL Y LNK 2018 27 2 MARGARITA [facility] [place] HSA W/HEALTH REIMBURSE MENT ARRANGEME NT MEDIMPACT PRESCRIPT HEALT Jun 09 [id number] [phone] MAGALIS MCPHERSON PATIENT RX ION H 2020 9 9 RADHA CURRAN ERS [facility] RX PRESCRIPT CENTU Jun 09 [facility] [id number] [phone] SANIA DONIS PATIENT ION RYLIN 2018 27 1 MARGARITA FLOWER [facility] HRA Selected Encounter This section includes the information on record at [place] for the Encounter. Date/Time Encounter Type Encounter Description Reason Provider Source Sep 27, 2021 02:11 Outpatient Encounter TELEPHONE PRIMARY CARE IHE Encounter Template Text not used by [place] Plan of Treatment: Future Appointments (+ 6 [...] 20 appointments. The data comes from all [place] treatment facilities. Appointment Date/Time Appointment Type Appointment Facili ty Name October 25, 2021 09:16 AM AMBULATORY - NONE [facility] October 30, 2021 09:30 AM AMBULATORY - MEDICINE [facility] October 31, 2021 01:06 PM AMBULATORY - NONE [facility] Dec 11, 2021 02:30 PM AMBULATORY - MEDICINE [facility] Social History: Smoking Status (Most current) and Tobacco Use (All prior to encounter date) This section includes the most current, and the historical, smoking and tobacco-related health factors from the [place] facility where the Encounter took place.Current Smoking Status This section includes the most current smoking, or tobacco-related health factor, from the [place] facility where the Encounter took place. Date/Time Current Smoking Status Comment Facility May 17, 2021 02:30 PM VA-TOBACCO FORMER USER MIN [facility] Tobacco Use History This section includes a history of the smoking, or tobacco- related health factors, that were collected on or before the date of the Encounter. The data comes from the [place] facility where the Encounter took place. Date/Time Smoking Status/Tobacco Use Comment [facility] May 17, 2021 02:30 PM VA-TOBACCO QUIT 5 TO < 15 YRS [facility] Jun 03, 2019 12:17 PM VA-TOBACCO FORMER USER MIN [facility] Jun 03, 2019 12:17 PM VA-TOBACCO QUIT 5 TO < 15 YRS [facility] Apr 08, 2018 08:52 AM VA-TOBACCO DOESNT USE WI 30 MIN [facility] WAKEUP Apr 08, 2018 08:52 AM VA-TOBACCO USE 1 TO < 5 YEARS [facility] Apr 08, 2018 08:52 AM VA-TOBACCO USE 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 Apr 08, 2018 08:52 AM VA-TOBACCO USER SOME DAYS [facility] Encounter Notes: All associated encounter notes This section contains the clinical notes associated to the Encounter. Date/Time Encounter Note(s) Provider Source Sep 27, 2021 02:11 PM REPORT OF CONTACT: [facility] LOCAL TITLE: APPOINTMENT SCHEDULING NOTE STANDARD TITLE: REPORT OF CONTACT DATE OF NOTE: SEP 27, 2021@14:11 ENTRY DATE: SEP 27, 2021@14:11:43 AUTHOR: ANDRES BLANK EXP COSIGNER: URGENCY: STATUS: COMPLETED APPOINTMENT SCHEDULING NOTE Has ADDENDA Attempt to schedule return to clinic 1st Contact: Called at: A pr Left message Voicemail Phone number left for to call back: If calls back, schedule appointment for : [facility] or around ( M ay 2021 ) for a total of 1 appointment(s) Prerequisites: Overbook [place] acne Is the RTC marked as no later than? No /kobi/ ANDRES BLANK ADVANCED MSA Signed: 09/27/2021 14:12 10/05/2021 ADDENDUM STATUS: COMPLETED Attempt to schedule return to clinic 2nd Contact: Called Satanta at: A pr Left message Voicemail Phone number left for to call back: [phone] /kobi/ ANDRES BLANK ADVANCED MSA Signed: 10/05/2021 14:24
--- OUTSIDE RECORDS SUMMARY | 2022-05-22 13:24 | XMS_ITS | Encounter Summary ---
:1995 Author Organization [facility] Address [address] [place] [id number] Insurance Providers: All historical and current Section [...] HEALTH HEALTH HP SE Jun 09, 84 [id number] [phone] MAGALIS MARTIN PATIENT PARTNERS [facility] 2020 9 7 RADHA ALBA CE R ORGANIZAT ION W/OUT OF NETWORK BENEFITS [facility] HIGH CENTR Jun 09 [id number] [phone] VERONICA PAT IENT DEDUCTIBL Y LNK 2018 27 2 FLOWER,CAR Juliette [facility] [place] [facility] HSA W/HEALTH REIMBURSE MENT ARRANGEME NT MEDIMPACT PRESCRIPT HEALT Jun 09 [id number] [phone] SANIA DONIS,MAGALIS PATIENT RX ION H 2020 9 9 RADHA CURRAN ERS OPTUM RX PRESCRIPT CENTU Jun 09, [facility] [id number] [phone] SANIA DONIS PATIENT ION RYLIN 2018 27 1 FLOWERMARGARITA [facility] HRA Selected Encounter This section includes the information on record at [place] for the Encounter. Date/Time Encounter Type Encounter Reason Provider Source Description Sep 26, 2021 PRO PHONE TELEPHONE ICD-10-CM Z04.89 [place] TURCIOS 11:04 AM CALL 5-10 MIN Encounter for examination and observation for oth reasons with Provider Comments: Encounter for examination and observation for other specified reasons E Encounter Template Text not used by [place] Assessments - Encounter Diagnoses This section includes the primary and secondary diagnoses documented for the Encounter. Date/Time Primary/Secondary Diagnosis Name Provider Source Diagnosis Sep 26, 2021 PRIMARY Encounter for [place] TURCIOS [place] V A 11:04 AM examination and [facility] observation for oth reasons Plan of Treatment: Future Appointments (+ 6 months) and Future Tests (+/- 45 days) The Plan of Treatment section includes future care activities for the patient [facility] [place] [facility] This section includes future appointments and future orders which are active, pending orscheduled.Future Appointments This section includes appointments that were scheduled to occur 6 months from the date of the Encounter, up to a maximum of 20 appointments. The data comes from all [place] treatment facilities. Appointment Date/Time Appointment Type Appointment Facili ty Name October 25, 2021 09:16 AM AMBULATORY - NONE [facility] October 30, 2021 09:30 AM AM[facility]ULATORY - MEDICINE [facility] October 31, 2021 01:06 PM AMBULATORY [facility] Dec 11, 2021 02:30 PM AMBULATORY - MEDICINE [facility] Social History: Smoking Status (Most current) and Tobacco Use (All prior to encounter date) This section includes the most current, and the historical, smoking and tobacco-related health factors from the [place] facility where the Encounter took place.Current Smoking Status This section includes the most current smoking, or tobacco-related health factor, from the [place] facility where the Encounter took place. Date/Time Current Smoking Status Comment Facility May 17, 2021 02:30 PM VA-TOBACCO FORMER USER MIN [facility] Tobacco Use History This section includes a history of the smoking, or tobacco- related health factors, that were collected on or before the date of the Encounter. The data comes from the [place] facility where the Encounter took place. 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 Date/Time Encounter Note(s) Provider Source Sep 26, 2021 11:04 AM REPORT OF CONTACT: [place] TURCIOS [facility] LOCAL TITLE: PATIENT CONTACT NOTE STANDARD TITLE: REPORT OF CONTACT DATE OF NOTE: SEP 26, 2021@11:04 ENTRY DATE: SEP 26, 2021@11:04:23 AUTHOR: [place] TURCIOS EXP COSIGNER: URGENCY: STATUS: COMPLETED Patient contact Name of Adell: MARCSO MARTIN Date & Time of Contact: Sep@11:04 Type of Contact: Telephone Reason for Contact: Adell calls today with requests for medication s. Adell asks if PCP Dr. Thompson will prescri be a medication for acne, pt specifically asks about Accutane. also asks if PCP will prescribe Acyclovir for treatment of cold sores. Disposition: Message to provider /es/ Ny Turcios RN [facility] Photoengraving Retoucher Signed: 09/26/2021 11:08 Receipt Acknowledged By: * AWAITING SIGNATURE * SANGEETA THOMPSON
--- OUTSIDE RECORDS SUMMARY | 2022-05-22 13:24 | XMS_ITS | Encounter Summary ---
:1995 Author Organization [facility] Address [address] [place] [id number] Insurance Providers: All historical and current Section [...] HEALTH HEALTH HP SE Jun 09, [birth year] [id number] [phone] MAGALIS MARTIN PATIENT PARTNERS [facility] 2020 9 7 RADHA ALBA CE R ORGANIZAT ION W/OUT OF NETWORK BENEFITS [facility] CENTR Jun 09 [id number] [phone] VERONICA CUETO IENT DEDUCTIBL Y LNK 2018 27 2 [facility] [facility] [place] HSA W/HEALTH REIMBURSE MENT ARRANGEME NT MEDIMPACT PRESCRIPT HEALT Jun 09 [id number] [phone] MAGALIS MCPHERSON PATIENT RX ION H 2020 9 9 RADHA CURRAN ERS OPTUM RX PRESCRIPT CENTU Jun 09, [facility] [id number] [phone] SANIA DONIS PATIENT ION RYLIN 2018 27 1 [place] [facility] HRA Selected Encounter This section includes the information on record at [place] for the Encounter. Date/Time Encounter Type Encounter Reason Provider Source Description Jul 04, 2021 01:10 Outpatient ADMIN PAT GUTIERREZ PARK PM Encounter [...] 20 appointments. The data comes from all [facility]. Appointment Date/Time Appointment Type Appointment Facili ty Name October 25, 2021 09:16 AM AMBULATORY - [facility] October 30, 2021 09:30 AM AMBULATORY - MEDICINE [facility] October 31, 2021 01:06 PM AMBULATORY - [facility] Dec 11, 2021 02:30 PM AMBULATORY - MEDICINE [facility] Active, Pending, and Scheduled Orders This section includes a listing of several types of active, pending, and scheduled orders, including clinic medications orders, diagnostic test orders, procedure orders and consult orders; where the start date of the order is 45 days before the date of the Encounter or 45 days after the date of the Encounter. The data comes from all [facility]. Test Date/Time Test Type Test Details Facility Name May 21, 2021 11:36 Laboratory - COVID-19 SCREEN PANEL [facility] AM Chemistry Order (AMADA/DIASORIN) NASOPHARYNGEAL SWAB WC ONCE Social History: Smoking Status (Most current) and Tobacco Use (All prior to encounter date) This section includes the most current, and the historical, smoking and tobacco-related health factors from the [place] facility where the Encounter took place.Current Smoking Status This section includes the most current smoking, or tobacco-related health factor, from the [place] facility where the Encounter took place. Date/Time Current Smoking Status Comment Facility May 17, 2021 02:30 PM VA-TOBACCO FORMER USER MIN [facility] Tobacco Use History This section includes a history of the smoking, or tobacco- related health factors, that were collected on or before the date of the Encounter. The data comes from the [place] facility where the Encounter took place. 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 Date/Time Encounter Note(s) Provider Source Jul 03, 2021 01:10 PM NONVA NOTE: JOE DUKES [facility] LOCAL TITLE: COMMUNITY CARE-KOMAL SELF PRESENTIN G CARE COORD PLAN STANDARD TITLE: NONVA NOTE DATE OF NOTE: JUL 03, 2021@13:10 ENTRY DATE: JUL 04, 2021@13:10:59 AUTHOR: JOE DUKES EXP COSIGNER: URGENCY: STATUS: COMPLETED COMMUNITY CARE-KOMAL SELF PRESENTING CARE CO ORD PLAN NOTE Has ADDENDA Emergency Notification Intake Date Presenting to the Facility: Jun Method of Contact: Notified from [employer] worklist Notification ID: [id number] [facility] Referral #: [facility] Name: Hospital: [facility] Address: [address] City: [place] State: [place] Zip Code: [address] Phone : [facility] Facility Point of Contact: Name: Karyn Weller RN / Chief complaint: COVID 19 POSITIVE, RIGHT TORN R OTATOR CUFF Primary Diagnosis: Disposition Unknown at time of intake note entry /kobi/ JOE DUKES LOOM OPERATOR (AOD) Signed: 07/04/2021 13:13 Receipt Acknowledged By: 07/05/2021 17:07 /kobi/ GUTIERREZ GONZALEZ RN Utilization Management 07/05/2021 ADDENDUM STATUS: COMPLETED Fax sent for records. /kobi/ GUTIERREZ GONZALEZ RN Utilization Management Signed: 07/05/2021 17:09 Receipt Acknowledged By: 07/06/2021 08:23 /kobi/ ALEXANDER SALCEDO RN [employer] Developer for AMANDA HAZEL 07/16/2021 ADDENDUM STATUS: COMPLETED Fax returned stating needs NATHAN signed and return ed. States questions to [phone] /es/ GUTIERREZ GONZALEZ RN Utilization Management Signed: 07/16/2021 15:10 Receipt Acknowledged By: 07/16/2021 15:31 /kobi/ ALEXANDER SALCEDO RN [employer] Software Developer 07/16/2021 ADDENDUM STATUS: COMPLETED Will forward this to Pact RN. /es/ ALEXANDER SALCEDO RN [employer] Software Developer Signed: 07/16/2021 15:33 Receipt Acknowledged By: * AWAITING SIGNATURE * AMANDA HAZEL E
--- OUTSIDE RECORDS SUMMARY | 2022-05-22 13:25 | XMS_ITS | Encounter Summary ---
:1995 Author Organization [facility] Address [address] [place] [phone] Insurance Providers: All historical and current Section [...] HEALTH HEALTH HP SE Jun 09, 84 [id number] [phone] MAGALIS MARTIN PATIENT PARTNERS [facility] 2020 9 7 RADHA ALBA CE R ORGANIZAT ION W/OUT OF NETWORK BENEFITS [facility]ENTR Jun 09 [id number] [phone] VERONICA PAT IENT DEDUCTIBL Y LNK 2018 27 2 [place] [facility] [place] HSA W/HEALTH REIMBURSE MENT ARRANGEME NT MEDIMPACT PRESCRIPT HEALT Jun 09 [id number] [phone] MAGALIS MCPHERSON PATIENT RX ION H 2020 9 9 RADHA CURRAN ERS OPTUM RX PRESCRIPT CENTU Jun 09, [facility] [id number] [phone] SANIA DONIS PATIENT ION RYLIN 2018 27 1 [facility] [facility] HRA Selected Encounter This section includes the information on record at [place] for the Encounter. Date/Time Encounter Type Encounter Description Reason Provider Source October 27, 2021 01:10 Outpatient Encounter CLINICAL PHARMACY PM IHE Encounter Template Text not used by [place] Plan of Treatment: Future Appointments (+ 6 [...] 20 appointments. The data comes from all [place] treatment facilities. Appointment Date/Time Appointment Type Appointment Facili ty Name October 30, 2021 09:30 AM AMBULATORY - MEDICINE [facility] October 31, 2021 01:06 PM AMBULATORY - NONE [facility] Dec 11, 2021 02:30 PM AMBULATORY - MEDICINE [facility] Social History: Smoking Status (Most current) and Tobacco Use (All prior to encounter date) This section includes the most current, and the historical, smoking and tobacco-related health factors from the [place] facility where the Encounter took place.Current Smoking Status This section includes the most current smoking, or tobacco-related health factor, from the [place] facility where the Encounter took place. Date/Time Current Smoking Status Comment Facility May 17, 2021 02:30 PM VA-TOBACCO FORMER USER MIN [facility] Tobacco Use History This section includes a history of the smoking, or tobacco- related health factors, that were collected on or before the date of the Encounter. The data comes from the [place] facility where the Encounter took place. 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 Date/Time Encounter Note(s) Provider Source October 27, 2021 01:10 PM EDUCATION NOTE: COLEMAN FLOOD [facility] LOCAL TITLE: EDUCATION MEDICATION INSTRUCTION STANDARD TITLE: EDUCATION NOTE DATE OF NOTE: OCTOBER 27, 2021@13:10 ENTRY DATE: OCTOBER 27, 2021@13:10:39 AUTHOR: COLEMAN FLOOD EXP COSIGNER: URGENCY: STATUS: COMPLETED MEDICATION EDUCATION PARTICIPANTS: Patient TEACHING STRATEGY: Face to Face READINESS TO LEARN: No barriers identified LEARNING NEEDS/OBJECTIVES Participant(s) indicates readiness to learn and has been instructed on indications, side effects, and di rections for use. Participant(s) will receive medication informat ion sheets for medications filled. Education included discussion of the following n ew medication(s): IBUPROFEN OXYCODONE METHOCARBAMOL PATIENT/FAMILY RESPONSE (OUTCOME): Verbalizes critical information about the topic FOLLOW-UP RECOMMENDED: None needed /es/ COLEMAN FLOOD PharmD, BCPS PHARMACIST Signed: 10/27/2021 13:10
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
--- OUTSIDE RECORDS SUMMARY | 2022-05-22 13:25 | XMS_ITS | Encounter Summary ---
:1995 Author Organization [facility] Address [address] [place] [address] Insurance Providers: All historical and current Section [...] HEALTH HEALTH HP SE Jun 09, 84 [id number] [phone] MAGALIS MARTIN PATIENT PARTNERS [facility] 2020 9 7 RADHA ALBA CE R ORGANIZAT ION W/OUT OF NETWORK BENEFITS [facility]TR Jun 09 [id number] [phone] VERONICA PAT IENT DEDUCTIBL Y LNK 2018 27 2 MARGARITA FLOWER [facility] [place] PLAN HSA W/HEALTH REIMBURSE MENT ARRANGEME NT MEDIMPACT PRESCRIPT HEALT Jun 09 [id number] [phone] SANIA DONIS,MAGALIS PATIENT RX ION H 2020 9 9 RADHA CURRAN ERS OPTUM RX PRESCRIPT CENTU Jun 09, [facility] [id number] [phone] SANIA DONIS PATIENT ION RYLIN 2018 27 1 MARGARITA FLOWER [facility] HRA Selected Encounter This section includes the information on record at [place] for the Encounter. Date/Time Encounter Type Encounter Description Reason Provider Source E Encounter Template Text not used by [place]
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
--- OUTSIDE RECORDS SUMMARY | 2022-05-22 13:26 | XMS_ITS | Encounter Summary ---
:1995 Author Organization Department [facility] Address [address] [place] [phone] Insurance Providers: All historical and current Section [...] HEALTH HEALTH HP SE Jun 09, 84 [id number] [phone] MAGALIS MARTIN PATIENT PARTNERS [facility] 2020 9 7 RADHA ALBA CE R ORGANIZAT ION W/OUT OF NETWORK BENEFITS [facility] H[facility] CENTR Jun 09 [id number] [phone] VERONICA PAT IENT DEDUCTIBL Y LNK 2018 27 2 MARGARITA FLOWER [facility] [place] PLAN HSA W/HEALTH REIMBURSE MENT ARRANGEME NT MEDIMPACT PRESCRIPT HEALT Jun 09 [id number] [phone] MAGALIS MCPHERSON PATIENT RX ION H 2020 9 9 RADHA CURRAN ERS OPTUM RX PRESCRIPT CENTU Jun 09 [facility] [id number] [phone] SANIA DONIS PATIENT ION RYLIN 2018 27 1 MARGARITA FLOWER [facility] HRA Selected Encounter This section includes the information on record at [place] for the Encounter. Date/Time Encounter Type Encounter Description Reason Provider Source October 30, 2021 09:30 Outpatient Encounter PRIMARY CARE/MEDICINE AM IHE Encounter Template Text not used by [...] Appointment Type Appointment Facili ty Name October 31, 2021 01:06 PM AMBULATORY - NONE [facility] Dec 11, 2021 02:30 PM AMBULATORY - MEDICINE [facility] Apr 30, 2022 09:00 PM AMBULATORY - NONE [facility] Social History: Smoking Status (Most current) and [...] 2021 02:30 PM VA-TOBACCO FORMER USER MIN [facility] Tobacco Use History This section includes a history of the smoking, or tobacco- related health factors, that were collected on or before the date of the Encounter. The data comes from the [place] facility where the Encounter took place. Date/Time Smoking Status/Tobacco Use Comment Facil ity May 17, 2021 02:30 PM VA-TOBACCO QUIT 5 TO < 15 YRS [facility] Jun 03, 2019 12:17 PM VA-TOBACCO FORMER USER MIN [facility] Jun 03, 2019 12:17 PM VA-TOBACCO QUIT 5 TO < 15 YRS [facility] Apr 08, 2018 08:52 AM VA-TOBACCO DOESNT USE WI 30 MIN [facility] Apr 08, 2018 08:52 AM VA-TOBACCO USE 1 TO < 5 YEARS [facility] Apr 08, 2018 08:52 AM VA-TOBACCO USE ADVICE [facility] Apr 08, 2018 08:52 AM VA-TOBACCO USE SPEECH CORRECTION ASSISTANT NO [facility] Apr 08, 2018 08:52 AM VA-TOBACCO USE MED NO [facility] Apr 08, 2018 08:52 AM VA-TOBACCO USER SOME DAYS [facility] Encounter Notes: All associated encounter notes This section contains the clinical notes associated to the Encounter. Date/Time Encounter Note(s) Provider Source October 30, 2021 04:55 PM [facility]: APPOINTMENT SCHEDULING NOTE STANDARD TITLE: REPORT OF CONTACT DATE OF NOTE: OCTOBER 30, 2021@16:55 ENTRY DATE: OCTOBER 30, 2021@16:56:08 AUTHOR: DOLORES CHRISTINE EXP COSIGNER: URGENCY: STATUS: COMPLETED No show Contact: No show letter sent to [place]'s addres s on file. October If [place] calls back, schedule appointment for : WART ON EAR AND ACNE FED:10/12/21 /kobi/ DOLORES CHRISTINE ADVANCED MSA Signed: 10/30/2021 16:57
--- OUTSIDE RECORDS SUMMARY | 2022-05-22 13:26 | XMS_ITS | Encounter Summary ---
:1995 Author Organization Department [facility] Address [address] [place] [id number] Insurance Providers: All historical and current Section [...] HEALTH HEALTH HP SE Jun 09, 84 [id number] [phone] MAGALIS MARTIN PATIENT [facility] 2020 9 7 RADHA ALBA CE R ORGANIZAT ION W/OUT OF NETWORK BENEFITS [facility] HIGH CENTR Jun 09 [id number] [phone] VERONICA PAT IENT DEDUCTIBL Y LNK 2018 27 2 [facility] [place] HSA W/HEALTH REIMBURSE MENT ARRANGEME NT MEDIMPACT PRESCRIPT HEALT Jun 09 [id number] [phone] MAGALIS MCPHERSON PATIENT RX ION H 2020 9 9 RADHA CURRAN ERS OPTUM RX PRESCRIPT CENTU Jun 09 [facility] [id number] [phone] SANIA DONIS PATIENT ION RYLIN 2018 27 1 [facility] [facility] HRA Selected Encounter This section includes the information on record at [place] for the Encounter. Date/Time Encounter Type Encounter Description Reason Provider Source Dec 12, 2021 10:50 Outpatient Encounter PRIMARY CARE/MEDICINE AM IHE Encounter [...] 20 appointments. The data comes from all [place] treatment facilities. Appointment Date/Time Appointment Type Appointment Facili ty Name Apr 30, 2022 09:00 PM AMBULATORY - NONE [facility] May 16, 2022 10:34 AM AMBULATORY - NONE [facility] Jun 07, 2022 10:00 AM AMBULATORY - NONE [facility] Jun 07, 2022 10:30 AM AMBULATORY - SURGERY [facility] Jun 14, 2022 01:00 PM AMBULATORY - NONE [facility] Jun 14, 2022 02:00 PM AMBULATORY - MEDICINE [facility] CS Social History: Smoking Status (Most current) and Tobacco Use (All prior to encounter date) This section includes the most current, and the historical, smoking and tobacco-related health factors from the [place] facility where the Encounter took place.Current Smoking Status This section includes the most current smoking, or tobacco-related health factor, from the [place] facility where the Encounter took place. Date/Time Current Smoking Status Comment Facility May 17, 2021 02:30 PM VA-TOBACCO FORMER USER [facility] Tobacco Use History This section includes a history of the smoking, or tobacco- related health factors, that were collected on or before the date of the Encounter. The data comes from the [place] facility where the Encounter took place. Date/Time Smoking Status/Tobacco Use Comment Facil it May 17, 2021 02:30 PM VA-TOBACCO QUIT 5 TO < 15 YRS [facility] Jun 03, 2019 12:17 PM VA-TOBACCO FORMER USER [facility] Jun 03, 2019 12:17 PM VA-TOBACCO QUIT 5 TO < 15 YRS [facility] Apr 08, 2018 08:52 AM VA-TOBACCO DOESNT USE WI 30 MIN [facility] Apr 08, 2018 08:52 AM VA-TOBACCO USE 1 TO < 5 YEARS [facility] Apr 08, 2018 08:52 AM VA-TOBACCO USE ADVICE [facility] Apr 08, 2018 08:52 AM VA-TOBACCO USE SURG NURSE NO [facility] Apr 08, 2018 08:52 AM [facility]ACCO [facility] Apr 08, 2018 08:52 AM VA-TOBACCO USER SOME DAYS [facility] Encounter Notes: All associated encounter notes This section contains the clinical notes associated to the Encounter. Date/Time Encounter Note(s) Provider Source Dec 12, 2021 10:50 AM REPORT OF CONTACT: ANDRES BLANK [facility] LOCAL TITLE: APPOINTMENT SCHEDULING NOTE STANDARD TITLE: REPORT OF CONTACT DATE OF NOTE: DEC 12, 2021@10:50 ENTRY DATE: DEC 12, 2021@10:50:15 AUTHOR: ANDRES BLANK EXP COSIGNER: URGENCY: STATUS: COMPLETED APPOINTMENT SCHEDULING NOTE Has ADDENDA Attempt to schedule return to clinic 1st Contact: Called [place] at: [facility] Left message Voicemail Phone number left for to call back: 2nd Contact: Sent letter by regular [place] mail to address on areli MARCOS Diehl [address] [place] [address] If [place] calls back, schedule appointment for : Return to [facility] 4D on or around ( Au g 2021 ) for a total of 1 appointment(s) Is the RTC marked as no later than? No /kobi/ ANDRES GUSTAFSON MSA Signed: 12/12/2021 10:50 12/26/2021 ADDENDUM STATUS: COMPLETED No response to scheduling efforts. RTC dispos itioned. /kobi/ ANDRES GUSTAFSON MSA Signed: 12/26/2021 12:09
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
--- NOTE | 2022-05-22 13:27 | ED_ITS ---
HPI - Extremity Injury (Upper) General Chief Complaint: Extremity Pain/Injury, Upper Stated Complaint: Right bicep tear Time Seen by Provider: 05/22/22 12:33 History of Present Illness HPI narrative: 26-year-old young man presenting out of miscommunication I think to this emergency department. 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 He understood that if he was having more pain should return to the emergency department. He notes that he can not even lift his dog without notable pain. I spoke quickly to Orthopedics who are present in this facility and will pursue this as outpatient. Related Data Home Medications Medication Instructions Recorded Confirmed beet root 2 tab PO DAILY 05/22/22 05/22/22 Allergies Allergy/AdvReac Type Severity Reaction Status Date / Time No Known Drug Allergies Allergy Verified 05/22/22 12:37 [facility] Surgical History (Updated 05/17/22 @ 11:47 by Juli Collins CMA) H/O adenoidectomy Social History Smoking Status: Never smoker Do you use any of these nicotine containing products: None Second hand tobacco smoke exposure: No How often do you have a drink containing alcohol: never How often do you have six or more drinks on one occasion: Never AUDIT-C Alcohol total score: 0 Non-prescribed substance use: denies use service: No Exam Const: Vital Signs, click to edit/add: Vital Signs - 24 hr 05/22/22 12:28 Temperature 97.9 F Pulse Rate [Left P ulse Oximeter] 76 Respiratory Rate 18 Blood Pressure [Ri ght Upper Arm] 130/64 Pulse Oximetry 97 Oxygen Delivery Me thod Room Air Course Vital Signs Vital signs: Initial Vital Signs Temperature 97.9 F 05/22/22 12:28 Temperature Source Temporal Artery Scan 05/22/22 12:28 Pulse Rate 76 05/22/22 12:28 Respiratory Rate 18 05/22/22 12:28 Blood Pressure 130/64 05/22/22 12:28 Blood Pressure Mean 86 05/22/22 12:28 Blood Pressure Position Sitting 05/22/22 12:28 Pulse Oximetry 97 05/22/22 12:28 Oxygen Delivery Method 05/22/22 12:28 Vital Signs Temperature 97.9 F 05/22/22 12:28 Pulse Rate 76 05/22/22 12:28 Respiratory Rate 18 05/22/22 12:28 Blood Pressure 130/64 05/22/22 12:28 Pulse Oximetry 97 05/22/22 12:28 Oxygen Delivery Method 05/22/22 12:28 Temperature 97.9 F 05/22/22 12:28 Pulse Rate 76 05/22/22 12:28 Respiratory Rate 18 05/22/22 12:28 Blood Pressure 130/64 05/22/22 12:28 Pulse Oximetry 97 05/22/22 12:28 Oxygen Delivery Method 05/22/22 12:28 Discharge Plan Discharge Clinical Impression: Injury of biceps brachii muscle Patient Disposition: Home, Self-Care Prescriptions: No Action beet root 2 tab PO DAILY Follow Up/Referrals: Provider,Not a Local [Primary Care Provider] - Stand Alone Forms: MyHealth Info Instructions
--- OUTSIDE RECORDS SUMMARY | 2022-05-22 13:27 | XMS_ITS | Encounter Summary ---
:1995 Author Organization [facility] Address [address] [place] [address] Insurance Providers: All historical and current Section [...] HEALTH HEALTH HP SE Jun 09, 84 [id number] [phone] MAGALIS MARTIN PATIENT [facility] 2020 9 7 RADHA ALBA CE R ORGANIZAT ION W/OUT OF NETWORK BENEFITS [facility] HIGH CENTR Jun 09 [id number] [phone] VERONICA PAT IENT DEDUCTIBL Y LNK 2018 27 2 [facility] [facility] [place] HSA W/HEALTH REIMBURSE MENT ARRANGEME NT MEDIMPACT PRESCRIPT HEALT Jun 09 [id number] [phone] SANIA DONIS,MAGALIS PATIENT RX ION H 2020 9 9 RADHA CURRAN ERS OPTUM RX PRESCRIPT CENTU Jun 09 [facility] [id number] [phone] SANIA DONIS PATIENT ION RYLIN 2018 27 1 [facility] HRA Selected Encounter This section includes the information on record at [place] for the Encounter. Date/Time Encounter Type Encounter Description Reason Provider Source E Encounter Template Text not used by [place]
--- OUTSIDE RECORDS SUMMARY | 2022-05-22 13:27 | XMS_ITS | Encounter Summary ---
:1995 Author Organization [facility] Address [address] [place] [id number] Insurance Providers: All historical and current Section [...] HEALTH HEALTH HP SE Jun 09, 84 [id number] [phone] MAGALIS MARTIN PATIENT [facility] 2020 9 7 RADHA ALBA CE R ORGANIZAT ION W/OUT OF NETWORK BENEFITS [facility] HIGH CENTR Jun 09 [id number] [phone] VERONICA PAT IENT DEDUCTIBL Y LNK 2018 27 2 [facility] [facility] [place] HSA W/HEALTH REIMBURSE MENT ARRANGEME NT MEDIMPACT PRESCRIPT HEALT Jun 09 [id number] [phone] MAGALIS MCPHERSON PATIENT RX ION H 2020 9 9 RADHA CURRAN ERS OPTUM RX PRESCRIPT CENTU Jun 09 [facility] [id number] [phone] SANIA DONIS PATIENT ION RYLIN 2018 27 1 [facility] [facility]OWER [facility] HRA Selected Encounter This section includes the information on record at [place] for the Encounter. Date/Time Encounter Type Encounter Reason Provider Source Description Feb 19, 2022 04:32 Outpatient PRIMARY MORRIS DELGADILLO Encounter CARE/MEDICINE M IHE Encounter Template Text not used by [place] Plan of Treatment: Future Appointments (+ 6 [...] 20 appointments. The data comes from all [facility]. Appointment Date/Time Appointment Type Appointment Facili ty Name Apr 30, 2022 09:00 PM AMBULATORY - NONE [facility] May 16, 2022 10:34 AM AMBULATORY - NONE [facility] Jun 07, 2022 10:00 AM AMBULATORY - NONE [facility] Jun 07, 2022 10:30 AM AMBULATORY - SURGERY [facility] Jun 14, 2022 01:00 PM AMBULATORY - NONE [facility] Jun 14, 2022 02:00 PM AMBULATORY - MEDICINE [facility] CS Active, Pending, and Scheduled Orders This section includes a listing of several types of active, pending, and scheduled orders, including clinic medications orders, diagnostic test orders, procedure orders and consult orders; where the start date of the order is 45 days before the date of the Encounter or 45 days after the date of the Encounter. The data comes from all [facility]. Test Date/Time Test Type Test Details Facility Name Feb 26, 2022 05:49 AM Consult Order COMMUNITY CARE-SLEEP MEDIC INE [facility] Cons X Ray Technologist's Choice Social History: Smoking Status (Most current) and Tobacco Use (All prior to encounter date) This section includes the most current, and the historical, smoking and tobacco-related health factors from the [place] facility where the Encounter took place.Current Smoking Status This section includes the most current smoking, or tobacco-related health factor, from the [place] facility where the Encounter took place. Date/Time Current Smoking Status Comment Facility May 17, 2021 02:30 PM VA-TOBACCO FORMER USER [facility] Tobacco Use History This section includes a history of the smoking, or tobacco- related health factors, that were collected on or before the date of the Encounter. The data comes from the [place] facility where the Encounter took place. 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 Date/Time Encounter Note(s) Provider Source Feb 19, 2022 04:32 PM PRIMARY CARE SECURE MESSAGING: Jenni DELGADILLO [facility] LOCAL TITLE: PRIMARY CARE SECURE MESSAGING STANDARD TITLE: PRIMARY CARE SECURE MESSAGING DATE OF NOTE: FEB 19, 2022@16:32 ENTRY DATE: FEB 19, 2022@16:32:49 AUTHOR: MORRIS DELGADILLO EXP COSIGNER: URGENCY: STATUS: COMPLETED PRIMARY CARE SECURE MESSAGING Has ADDENDA * ------Original Message Sent: 02/19/2022 05:08 PM ET From: MARCOS MARTIN To: [facility] Primary Care, Alcides Lew ([facility]) Subject: General:Sleep study outside the ar I would like to schedule a sleep study done at m y nearest [facility] ( [facility]), usually when I call and t ry to see the nearest time I can set one at the ar it's usually too far out f or me to reasonable schedule while trying to balance within my work/personal schedule. I do live about 1 mile away from the [facility] and it would be very convenient if you can author ize this or not. I do have a prior referral from my PCP on how I should have one conducted. /kobi/ MORRIS DELGADILLO RN Signed: 02/19/2022 16:32 02/19/2022 ADDENDUM STATUS: COMPLETED Patient is requesting [facility] sleep study, lives in [facility]. Please let me know if there is a message I can relay to the patient. /kobi/ MORRIS DELGADILLO RN Signed: 02/19/2022 16:33 Receipt Acknowledged By: * AWAITING SIGNATURE * SANGEETA THOMPSON
--- OUTSIDE RECORDS SUMMARY | 2022-05-22 13:27 | XMS_ITS | Encounter Summary ---
:1995 Author Organization [facility] Address [address] [place] [id number] Insurance Providers: All historical and current Section [...] HEALTH HEALTH HP SE Jun 09, 84 [id number] [phone] MAGALIS MARTIN PATIENT [facility] 2020 9 7 RADHA ALBA CE R ORGANIZAT ION W/OUT OF NETWORK BENEFITS [facility] CENTR Jun 09 [id number] [phone] VERONICA PAT IENT DEDUCTIBL Y LNK 2018 27 2 [facility] [place] HSA W/HEALTH REIMBURSE MENT ARRANGEME NT MEDIMPACT PRESCRIPT HEALT Jun 09 [id number] [phone] SANIA DONIS,MAGALIS PATIENT RX ION H 2020 9 9 RADHA CURRAN ERS [facility] RX PRESCRIPT CENTU Jun 09 [facility] [id number] [phone] SANIA DONIS PATIENT ION RYLIN 2018 27 1 MARGARITA [facility] HRA Selected Encounter This section includes the information on record at [place] for the Encounter. Date/Time Encounter Type Encounter Reason Provider Source Description May 15, 2022 Outpatient TELEPHONE PRIMARY ICD-10-CM VAN 04:42 PM Encounter CARE M25.521 Pain VRANKEN,BENJAM in right elbow IN E with Provider Comments: Pain in right Elbow IHE Encounter Template Text not used by [facility] Assessments - Encounter Diagnoses This section includes the primary and secondary diagnoses documented for the Encounter. Date/Time Primary/Secondary Diagnosis Name Provider Source Diagnosis May 15, 2022 PRIMARY Pain in right [facility] 04:42 PM elbow NAVEEN FAJARDO [facility] IN E Plan of Treatment: Future Appointments (+ 6 months) and Future Tests (+/- 45 days) The Plan of Treatment section includes future care activities for the patient from all [place] [facility]. This section includes future appointments and future orders which are active, pending orscheduled.Future Appointments This section includes appointments that were scheduled to occur 6 months from the date of the Encounter, up to a maximum of 20 appointments. The data comes from all [place] treatment [facility]. Appointment Date/Time Appointment Type Appointment Facili ty Name May 16, 2022 10:34 AM AMBULATORY - NONE [facility] Jun 07, 2022 10:00 AM AMBULATORY - NONE [facility] Jun 07, 2022 10:30 AM AMBULATORY - SURGERY [facility] S Jun 14, 2022 01:00 PM AMBULATORY - NONE [facility] Jun 14, 2022 02:00 PM AMBULATORY - MEDICINE [facility] CS Active, Pending, and Scheduled Orders This section includes a listing of several types of active, pending, and scheduled orders, including clinic medications orders, diagnostic test orders, procedure orders and consult orders; where the start date of the order is 45 days before the date of the Encounter or 45 days after the date of the Encounter. The data comes from all [place] treatment [facility]. Test Date/Time Test Type Test Details Facility Name May 15, 2022 04:59 PM Consult Order ORTHOPEDICS [facility] OUTPT-ELBOW/FOREARM/WRIS T/HAND Cons Chrome Plater Helper's Choice May 21, 2022 12:00 AM Laboratory - CBC BLOOD SP ONCE [place] [facility] Chemistry Order May 21, 2022 12:00 AM Laboratory - [facility]IVE [facility]IC [place] [facility] Chemistry Order PANEL+MG PLASMA SP May 22, 2022 12:00 AM Imaging - Magnetic MRI [facility] RIGHT (P[facility] Resonance Imaging (MRI) Order Jun 07, 2022 10:00 AM Imaging - General ELBOW RIGHT 2 VIEWS [facility] Radiology Order RIGHT Social History: Smoking Status (Most current) and Tobacco Use (All prior to encounter date) This section includes the most current, and the historical, smoking and tobacco-related health factors from the [place] facility where the Encounter took place.Current Smoking Status This section includes the most current smoking, or tobacco-related health factor, from the [facility] where the Encounter took place. Date/Time Current Smoking Status Comment Facility May 17, 2021 02:30 PM VA-TOBACCO FORMER USER MIN [facility] Tobacco Use History This section includes a history of the smoking, or tobacco- related health factors, that were collected on or before the date of the Encounter. The data comes from the [facility] where the Encounter took place. Date/Time Smoking Status/Tobacco Use Comment 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 Date/Time Encounter Note(s) Provider Source May 15, 2022 04:59 PM PACT NOTE: SANGEETA THOMPSON [facility] LOCAL TITLE: MEDICINE CLINIC PROVIDER TELEPHONE NOTE E STANDARD TITLE: PACT NOTE DATE OF NOTE: MAY 15, 2022@16:59 ENTRY DATE: MAY 15, 2022@16:59:24 AUTHOR: ENRIQUE THOMPSON EXP COSIGNER: URGENCY: STATUS: COMPLETED History: yesterday, he was lifting something heavy and he developed a partial distal biceps tendon rupture. he has had pain w/ elbow flexion. Objective: Assessment/Plan: right elbow pain: [facility] doc made a clinical diagnosis of partial distal biceps tendon tear. - maintain elbow in sling - don't lift anything with right arm - Ortho referral, urgent - x-rays and MRI Education/Counseling: Time spent data quality consultant: 11-20 minutes /kobi/ SANGEETA THOMPSON MD Staff Physician Signed: 05/15/2022 16:59
--- OUTSIDE RECORDS SUMMARY | 2022-05-22 13:27 | XMS_ITS | Encounter Summary ---
:1995 Author Organization Department [facility] Address [address] [place] [id number] Insurance Providers: All historical and current Section [...] HEALTH HEALTH HP SE Jun 09, 84 [id number] [phone] MAGALIS MARTIN PATIENT [facility] 2020 9 7 RADHA ALBA CE R ORGANIZAT ION W/OUT OF NETWORK BENEFITS [facility]TR Jun 09 [id number] [phone] VERONICA PAT IENT DEDUCTIBL Y LNK 2018 27 2 [facility] [place] HSA W/HEALTH REIMBURSE MENT ARRANGEME NT MEDIMPACT PRESCRIPT HEALT Jun 09 [id number] [phone] MAGALIS MCPHERSON PATIENT RX ION H 2020 9 9 RADHA CURRAN ERS [facility] RX PRESCRIPT CENTU Jun 09 [facility] [id number] [phone] SANIA DONIS PATIENT ION RYLIN 2018 27 1 [facility]ITA [facility] HRA Selected Encounter This section includes the information on record at [place] for the Encounter. Date/Time Encounter Type Encounter Reason Provider Source Description May 16, 2022 10:10 Outpatient PRIMARY RAUL IBARRA AM Encounter CARE/MEDICINE IHE Encounter Template Text not used by [...] 20 appointments. The data comes from all [facility]. Appointment Date/Time Appointment Type Appointment Facili ty Name Jun 07, 2022 10:00 AM AMBULATORY - NONE [facility] Jun 07, 2022 10:30 AM AMBULATORY - SURGERY [facility] Jun 14, 2022 01:00 PM AMBULATORY - NONE [facility] Jun 14, 2022 02:00 PM AMBULATORY - MEDICINE [facility] CS Active, Pending, and Scheduled Orders This section includes a listing of several types of active, pending, and scheduled orders, including clinic medications orders, diagnostic test orders, procedure orders and consult orders; where the start date of the order is 45 days before the date of the Encounter or 45 days after the date of the Encounter. The data comes from all [facility]. Test Date/Time Test Type Test Details Facility Name May 15, 2022 04:59 PM Consult Order ORTHOPEDICS [facility] OUTPT-ELBOW/FOREARM/WRIS T/HAND Cons Broadcast Operations Technician's Choice May 21, 2022 12:00 AM Laboratory - CBC BLOOD SP ONCE [facility] Chemistry Order May 21, 2022 12:00 AM Laboratory - COMPREHENSIVE METABOLIC [place] [facility] Chemistry Order PANEL+MG PLASMA SP May 22, 2022 12:00 AM Imaging - Magnetic MRI ELBOW RIGHT (P) MIN [facility] Resonance Imaging (MRI) Order Jun 07, 2022 10:00 AM Imaging - General ELBOW RIGHT 2 VIEWS [facility] Radiology Order RIGHT Social History: Smoking Status [...] 17, 2021 02:30 PM VA-TOBACCO FORMER USER [facility] Tobacco Use History This section includes a history of the smoking, or tobacco- related health factors, that were collected on or before the date of the Encounter. The data comes from the [place] facility where the Encounter took place. 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 Date/Time Encounter Note(s) Provider Source May 16, 2022 10:10 AM PRIMARY CARE SECURE MESSAGING: MALIA IBARRA [facility] LOCAL TITLE: PRIMARY CARE SECURE MESSAGING STANDARD TITLE: PRIMARY CARE SECURE MESSAGING DATE OF NOTE: MAY 16, 2022@10:10 ENTRY DATE: MAY 16, 2022@09:10:52 AUTHOR: RAUL IBARRA EXP COSIGNER: URGENCY: STATUS: COMPLETED ------Original Message Sent: 05/16/2022 10:10 AM ET From: RAUL IBARRA To: MARCOS MARTIN Subject: General:General Inquiry Attachments: Scan_[id number] (2 2.61 KB) Dr. Mauricio William has provided a medical n ote for you which I have attached. Let me know if you have questions. Thanks. Randee Ibarra RN Clinic Primary Care /es/ RAUL IBARRA RN REGISTERED NURSE Signed: 05/16/2022 09:10
--- OUTSIDE RECORDS SUMMARY | 2022-05-22 13:27 | XMS_ITS | Encounter Summary ---
:1995 Author Organization [facility] Address [address] [place] [phone] Insurance Providers: All historical and current Section [...] HEALTH HEALTH HP SE Jun 09, 84 [id number] [phone] MAGALIS MARTIN PATIENT [facility] 2020 9 7 RADHA ALBA CE R ORGANIZAT ION W/OUT OF NETWORK BENEFITS [facility] Jun 09 [id number] [phone] VERONICA CUETO IENT DEDUCTIBL Y LNK 2018 27 2 [facility] [place] HSA W/HEALTH REIMBURSE MENT ARRANGEME NT MEDIMPACT PRESCRIPT HEALT Jun 09 [id number] [phone] MAGALIS MCPHERSON PATIENT RX ION H 2020 9 9 RADHA CURRAN ERS [facility] RX PRESCRIPT CENTU Jun 09, [facility] [id number] [phone] SANIA DONIS PATIENT ION RYLIN 2018 27 1 MARGARITA [facility] HRA Selected Encounter This section includes the information on record at [place] for the Encounter. Date/Time Encounter Type Encounter Reason Provider Source Description May 16, 2022 10:34 Outpatient ADMIN PAT ELODIA GIL AM Encounter (MASNONCT) IHE Encounter Template Text [...] 20 appointments. The data comes from all [facility]. Appointment Date/Time Appointment Type Appointment Facili ty Name Jun 07, 2022 10:00 AM AMBULATORY - NONE [facility] Jun 07, 2022 10:30 AM AMBULATORY - SURGERY [facility] S Jun 14, 2022 01:00 PM AMBULATORY - NONE [facility] Jun 14, 2022 02:00 PM AMBULATORY - MEDICINE [facility] CS Active, Pending, and Scheduled Orders This section includes a listing of several types of active, pending, and scheduled orders, including clinic medications orders, diagnostic test orders, procedure orders and consult orders; where the start date of the order is 45 days before the date of the Encounter or 45 days after the date of the Encounter. The data comes from all [facility]. Test Date/Time Test Type Test Details Facility Name May 15, 2022 04:59 PM Consult [facility] OUTPT-ELBOW/FOREARM/WRIS T/HAND Cons Junior Net Developer's Choice May 21, 2022 12:00 AM Laboratory - CBC BLOOD SP ONCE [facility] Chemistry Order May 21, 2022 12:00 AM Laboratory - [facility]HENSIVE [facility]OLIC [place] [facility] Chemistry Order PANEL+MG PLASMA SP May 22, 2022 12:00 AM Imaging - Magnetic MRI ELBOW RIGHT (P) [facility] Resonance Imaging (MRI) Order Jun 07, 2022 10:00 AM Imaging - General ELBOW RIGHT 2 VIEWS [facility] Radiology Order RIGHT Social History: Smoking Status (Most current) and Tobacco Use (All prior to encounter date) This section includes the most current, and the historical, smoking and tobacco-related health factors from the [place] facility where the Encounter took place.Current Smoking Status This section includes the most current smoking, or tobacco-related health factor, from the [place] facility where the Encounter took place. Date/Time Current Smoking Status Comment Facility May 17, 2021 02:30 PM VA-TOBACCO FORMER USER MIN [facility] Tobacco Use History This section includes a history of the smoking, or tobacco- related health factors, that were collected on or before the date of the Encounter. The data comes from the [place] facility where the Encounter took place. Date/Time Smoking Status/Tobacco Use Comment Facil ity May 17, 2021 02:30 PM VA-TOBACCO QUIT 5 TO < [address] [facility] Jun 03, 2019 12:17 PM VA-TOBACCO FORMER USER MIN [facility] Jun 03, 2019 12:17 PM VA-TOBACCO QUIT 5 TO < [address] [facility] Apr 08, 2018 08:52 AM VA-TOBACCO DOESNT USE WI [address] [facility] WAKEUP Apr 08, 2018 08:52 AM VA-TOBACCO USE 1 TO < [address] 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 Apr 08, 2018 08:52 AM VA-TOBACCO USE MED NO [facility] Apr 08, 2018 08:52 AM VA-TOBACCO USER SOME DAYS [facility] Encounter Notes: All associated encounter notes This section contains the clinical notes associated to the Encounter. Date/Time Encounter Note(s) Provider Source May 14, 2022 03:30 PM NONVA NOTE: LUCITA RASCON [facility] LOCAL TITLE: COMMUNITY CARE-KOMAL SELF PRESENTIN G CARE COORD PLAN STANDARD TITLE: NONVA NOTE DATE OF NOTE: MAY 14, 2022@15:30 ENTRY DATE: MAY 16, 2022@10:36:36 AUTHOR: LUCITA RASCON EXP COSIGNER: URGENCY: STATUS: COMPLETED COMMUNITY CARE-KOMAL SELF PRESENTING CARE CO ORD PLAN NOTE Has ADDENDA Emergency Notification Intake Date Presenting to the Facility: May Method of Contact: Notified from ECR worklist Notification ID: [id number] [facility] Referral #: [facility] Hospital Name: Hospital: [facility], Address: [address] City: [place] State: [place] Zip Code: Phone : [facility] Facility Point of Contact: Name: Darlene Pina Chief complaint: BICEP INJURY Primary Diagnosis: Disposition Unknown at time of intake note entry Status: POM Review /es/ LUCITA RASCON UI PROGRAMMER Signed: 05/16/2022 10:41 Receipt Acknowledged By: 05/20/2022 11:10 /es/ ELODIA SINGH RN REGISTERED NURSE 05/20/2022 ADDENDUM STATUS: COMPLETED Records requested for this episode of care, will upload to [employer] when received. /kobi/ ELODIA SINGH RN REGISTERED NURSE Signed: 05/20/2022 11:10
--- OUTSIDE RECORDS SUMMARY | 2022-05-22 13:27 | XMS_ITS | Encounter Summary ---
:1995 Author Organization [facility] Address [address] [place] [phone] Insurance Providers: All historical and current Section [...] HEALTH HEALTH HP SE Jun 09, 84 [id number] [phone] MAGALIS MARTIN PATIENT PARTNERS [facility] 2020 9 7 RADHA ALBA CE R ORGANIZAT ION W/OUT OF NETWORK BENEFITS [facility] Jun 09 [id number] [phone] VERONICA PAT IENT DEDUCTIBL Y LNK 2018 27 2 MARGARITA [facility] LOS PLAN HSA W/HEALTH REIMBURSE MENT ARRANGEME NT MEDIMPACT PRESCRIPT HEALT Jun 09 [id number] [phone] MAGALIS MCPHERSON PATIENT RX ION H 2020 9 9 RADHA CURRAN ERS OPTUM RX PRESCRIPT CENTU Jun 09 [facility] [id number] [phone] SANIA DONIS PATIENT ION RYLIN 2018 27 1 MARGARITA [facility] HRA Selected Encounter This section includes the information on record at ME for the Encounter. Date/Time Encounter Type Encounter Description Reason Provider Source Jun 19, 2021 10:00 Outpatient Encounter COMMUNITY CARE AM CONSULT IHE Encounter Template Text not used by [...] 20 appointments. The data comes from all [facility]. Appointment Date/Time Appointment Type Appointment Facili ty Name Jul 04, 2021 01:10 PM AMBULATORY - NONE [facility] October 25, 2021 09:16 AM AMBULATORY - NONE [facility] October 30, 2021 09:30 AM AMBULATORY - MEDICINE [facility] CS October 31, 2021 01:06 PM AMBULATORY - [facility] Dec 11, 2021 02:30 PM AMBULATORY - MEDICINE [facility] Active, Pending, and [...] the Encounter. The data comes from all [facility]. Test Date/Time Test Type Test Details Facility Name May 21, 2021 11:36 Laboratory - COVID-19 SCREEN PANEL [place] AM Chemistry Order (AMADA/DIASORIN) NASOPHARYNGEAL SWAB WC ONCE Lab Results: +/- 30 days of the encounter This section includes the Chemistry and Hematology Lab Results on record with [place] for the patient. Radiology Reports and Pathology Reports are provided separately, in subsequent sections.Lab Results This section contains the Chemistry/Hematology Results that were resulted 30 days before or 30 daysafter the date of the Encounter. Date/Time Source Result Type Result - Unit Interpretation Reference Range Comment May 21, 2021 12:07 PM [facility] URINALYSIS Specim en Type: URINE No comment enter ed. Ordering Provid er: SANGEETA THOMPSON Report Released Date/Time: May 21, 2021 11:36 AM Reporting Lab: [facility] [address] [facility] [address] [facility] [address] Performing Lab: [facility] [address] [facility] [address] URINE COLOR LIGHT-YELLOW SPECIFIC GRAVITY 1.017 1.003-1.035 URINE BILIRUBIN NEGATIVE NEGATIVE URINE KETONES NEGATIVE NEGATIVE URINE GLUCOSE NEGATIVE <30 URINE PROTEIN 10 <20 URINE PH 7.0 5.0-8.0 URINE WBC/HPF 1 0-7 URINE BACTERIA NONE SEEN URINE RBC/HPF 2 0-3 APPEARANCE CLEAR SQUAMOUS EPITHELIAL NONE SEEN URINE BLOOD NEGATIVE NEGATIVE URINE NITRITE NEGATIVE NEGATIVE LEUKOCYTE ESTERASE NEGATIVE NEGATIVE May 21, 2021 09:28 AM [facility] CBC Specim en Type: BLOOD No comment enter ed. Ordering Provid er: SANGEETA THOMPSON Report Released Date/Time: Apr 17, 2021 11:27 AM Reporting Lab: [facility] [address] [facility] [address] Performing Lab: [facility] [address] [facility] [address] WBC 6.56 4.0-11.0 RBC 5.90 4.6-6.2 HGB 18.8 H 13.5-17.9 HCT 56.5 H 41-54 MCV 95.8 80-100 MCH 31.9 27-33 MCHC 33.3 32.0-37.5 PLT 272 150-400 MPV 10.6 H 7.4-10.4 RDW 14.5 11.5-14.5 May 21, 2021 09:28 [facility] TSH W/REFLEX TO FREE Spec imen Type: PLASMA AM T4 No comment enter ed. Ordering Provid er: SANGEETA THOMPSON Report Released Date/Time: Apr 17, 2021 11:27 AM Reporting Lab: [facility] [address] [facility] [address] Performing Lab: [facility] [address] [facility] [address] TSH 1.47 0.35-4.94 May 21, 2021 09:28 AM [facility] TESTOSTERONE Specim en Type: SERUM No comment enter ed. Ordering Provid er: SANGEETA THOMPSON Report Released Date/Time: Apr 17, 2021 11:27 AM Reporting Lab: [facility] [address] [facility] [address] Performing Lab: [facility] [address] [facility] [address] TESTOSTERONE >1500 H 221-870 May 21, 2021 09:28 AM [facility] FSH Specim en Type: PLASMA No comment enter ed. Ordering Provid er: SANGEETA THOMPSON Report Released Date/Time: Apr 17, 2021 11:27 AM Reporting Lab: [facility] [address] [facility] [address] Performing Lab: [facility] [address] [facility] [address] FSH <0.11 L 0.95-11.95 May 21, 2021 [facility] COMPREHENSIVE METABOLIC Spec imen Type: PLASMA 09:28 AM PANEL+MG No comment enter ed. Ordering Provid er: SANGEETA THOMPSON Report Released Date/Time: Apr 17, 2021 11:27 AM Reporting Lab: [facility] [address] [facility] [address] Performing Lab: [facility] [address] CREATININE 1.2 0.7-1.2 UREA NITROGEN 10 8-26 GLUCOSE 94 74-100 SODIUM 138 136-145 POTASSIUM 4.2 3.5-5.1 CHLORIDE 106 98-107 CO2 25 22-29 CALCIUM 9.3 8.4-10.2 PROTEIN,TOTAL 7.8 6.0-8.3 ALBUMIN 4.3 3.5-5.2 BILIRUBIN, TOTAL 0.8 0.2-1.2 MAGNESIUM 1.9 1.6-2.6 ANION GAP 7 5-15 ALKALINE PHOSPHATASE 46 40-150 ALT/SGPT 35 <55 AST/SGOT 38 H <34 ESTIMATED GFR(eGFR) 73 >60 May 21, 2021 09:28 [facility] LUTEINIZING HORMONE Speci men Type: SERUM AM No comment enter ed. Ordering Provid er: SANGEETA THOMPSON Report Released Date/Time: Apr 17, 2021 11:27 AM Reporting Lab: [facility] [address] Performing Lab: [facility] [address] LUTEINIZING HORMONE <0.12 L 0.57-12.07 May 21, 2021 09:28 [facility] INSULIN LIKE GROWTH Speci men Type: SERUM AM FACTOR I Comment: REFERE NCE RANGE: -2.0 - +2.0 SD This test was developed and its analytical performance characteristics have been determined by [facility]. It has n ot been cleared or approved by FDA. This assay has been validated pursuant to the CLIA regulations and is used for clinical purposes. Test performed by [employer] [address] [place] [address] Ic Engineer: Saranya Sullivan MD,PHD,EMMA Test Reported by [employer], [employer] [place], [address] [address], [place] Jovanni Dukes M.D., Ph.D., Director of Laboratories , [facility] [id number] Ordering Provid er: SANGEETA THOMPSON Report Released Date/Time: May 21, 2021 11:36 AM Reporting Lab: [facility] [address] [facility] [address] Performing Lab: [address] .INSULIN LIKE GF I 126 63-373 .Z-SCORE(MALE) -0.6 SEE BELOW .Z-SCORE(FEMALE) DNR May 21, 2021 09:28 AM [facility] CORTISOL Specim en Type: PLASMA No comment enter ed. Ordering Provid er: SANGEETA THOMPSON Report Released Date/Time: May 21, 2021 11:36 AM Reporting Lab: [facility] [address] [facility] [address] Performing Lab: [facility] [address] [facility] [address] CORTISOL 8.3 May 21, 2021 09:28 AM [facility] PROLACTIN Specim en Type: PLASMA No comment enter ed. Ordering Provid er: SANGEETA THOMPSON Report Released Date/Time: May 21, 2021 11:36 AM Reporting Lab: [facility] [address] [facility] [address] Performing Lab: [facility] [address] [facility] [address] PROLACTIN 13.64 <19.40 Social History: Smoking Status (Most current) and Tobacco Use (All prior to encounter date) This section includes the most current, and the historical, smoking and tobacco-related health factors from the [facility] where the Encounter took place.Current Smoking Status This section includes the most current smoking, or tobacco-related health factor, from the [place] facility where the Encounter took place. Date/Time Current Smoking Status Comment Facility May 17, 2021 02:30 PM VA-TOBACCO FORMER USER MIN [facility] Tobacco Use History This section includes a history of the smoking, or tobacco- related health factors, that were collected on or before the date of the Encounter. The data comes from the [place] facility where the Encounter took place. 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
--- OUTSIDE RECORDS SUMMARY | 2022-05-22 13:27 | XMS_ITS | Encounter Summary ---
:1995 Author Organization [facility] Address [address] [place] [phone] Insurance Providers: All historical and current Section [...] HEALTH HEALTH HP SE Jun 09, 84 [id number] [phone] MAGALIS MARTIN PATIENT PARTNERS [facility] 2020 9 7 RADHA ALBA CE R ORGANIZAT ION W/OUT OF NETWORK BENEFITS [facility] CENTR Jun 09 [id number] [phone] VERONICA PAT IENT DEDUCTIBL Y LNK 2018 27 2 MARGARITA [facility] [place] PL[place] HSA W/HEALTH REIMBURSE MENT ARRANGEME NT MEDIMPACT PRESCRIPT HEALT Jun 09 [id number] [phone] SANIA DONIS,MAGALIS PATIENT RX ION H 2020 9 9 RADHA CURRAN ERS [facility] RX PRESCRIPT CENTU Jun 09, [facility] [id number] [phone] SANIA DONIS PATIENT ION RYLIN 2018 27 1 MARGARITA FLOWER [facility] HRA Selected Encounter This section includes the information on record at [place] for the Encounter. Date/Time Encounter Type Encounter Reason Provider Source Description May 14, 2022 03:14 Outpatient TELEPHONE TRIAGE MISTI BLOCK PM Encounter EY S IHE Encounter Template Text not used by [...] 20 appointments. The data comes from all [facility]. Appointment Date/Time Appointment Type Appointment Facili ty Name May 16, 2022 10:34 AM AMBULATORY - NONE [facility] Jun 07, 2022 10:00 AM AMBULATORY - NONE [facility] Jun 07, 2022 10:30 AM AMBULATORY - SURGERY [facility] S Jun 14, 2022 01:00 PM AMBULATORY - NONE [facility] Jun 14, 2022 02:00 PM AMBULATORY - MEDICINE [facility] CS Active, Pending, and Scheduled Orders This section includes a listing of several types of active, pending, and scheduled orders, including clinic medications orders, diagnostic test orders, procedure orders and consult orders; where the start date of the order is 45 days before the date of the Encounter or 45 days after the date of the Encounter. The data comes from all [facility]. Test Date/Time Test Type Test Details Facility Name May 15, 2022 04:59 PM Consult Order ORTHOPEDICS [facility] OUTPT-ELBOW/FOREARM/WRIS T/HAND Cons Avionics Manager's Choice May 21, 2022 12:00 AM Laboratory - [facility] Chemistry Order May 21, 2022 12:00 AM Laboratory - COMPREHENSIVE METABOLIC SD [facility] Chemistry Order PANEL+MG PLASMA SP May 22, 2022 12:00 AM Imaging - Magnetic MRI ELBOW RIGHT (P) [facility] Resonance Imaging (MRI) Order Jun 07, 2022 10:00 AM Imaging - General ELBOW RIGHT [address] [facility] Radiology Order RIGHT Social History: Smoking Status (Most current) and Tobacco Use (All prior to encounter date) This section includes the most current, and the historical, smoking and tobacco-related health factors from the [place] facility where the Encounter took place.Current Smoking Status This section includes the most current smoking, or tobacco-related health factor, from the [place] facility where the Encounter took place. Date/Time Current Smoking Status Comment Facility May 17, 2021 02:30 PM VA-TOBACCO FORMER USER [facility] Tobacco Use History This section includes a history of the smoking, or tobacco- related health factors, that were collected on or before the date of the Encounter. The data comes from the [place] facility where the Encounter took place. Date/Time Smoking Status/Tobacco Use Comment Facil ity May 17, 2021 02:30 PM VA-TOBACCO QUIT 5 TO < 15 YRS [facility] Jun 03, 2019 12:17 PM VA-TOBACCO FORMER USER [facility] Jun 03, 2019 12:17 PM VA-TOBACCO QUIT 5 TO < 15 YRS [facility] Apr 08, 2018 08:52 AM VA-TOBACCO DOESNT USE WI 30 MIN [facility] Apr 08, 2018 08:52 AM VA-TOBACCO USE 1 TO < 5 YEARS [facility] Apr 08, 2018 08:52 AM VA-TOBACCO USE ADVICE [facility]AKOV 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 Date/Time Encounter Note(s) Provider Source May 14, 2022 03:14 PM RN PROGRESS NOTE: TYRONE BLOCK [facility] LOCAL TITLE: CCC: CLINICAL TRIAGE S STANDARD TITLE: RN PROGRESS NOTE DATE OF NOTE: MAY 14, 2022@15:14:47 ENTRY DATE: MAY 14, 2022@15:14:47 AUTHOR: TYRONE BLOCK EXP COSIGNER: URGENCY: STATUS: COMPLETED Patient Demographics Patient Name: MARCOS MARTIN Patient Primary Address: [address]
[place] [address] Patient : 1995 SSN: [id number] Patient Age: 26 Caller/Recipient Relation to Patient: Self Triage Summary Nurse Summary: ############################ ################################################### ############################### VISN 23 TRIAGE NURSE NOTES PATIENT CONCERN/DURATION/ONS ET: states that he ruptured his right bicep and likely tore it. States the tendon like area sticking upward. Calls to ask for ER referral. WHAT HAS THE PATIENT TRIED TO TREAT THE SYMPTOMS : No Home Measures HISTORY/PREVIOUS TREATMENT: none pertinent WHAT IS PATIENT GOAL FOR THE CALL: ER referral DID YOU CONSIDER USING CCC LIP (TELE or VVC): no DRAG OUT MAN DISPOSITION: Recommended triage is [facility] department now for evaluation. Vet states will go locally to ER at [facility]. Referral number given. (Caller could accurately sum marize the agreed upon plan of care as discussed in the education log portion of this note.) Per policy, automated recommendations for an ?ap pointment? indicates an interaction (virtual or in-person) with the care team. ############################ ################################################### ############################### Conducted triage/discussed symptoms Utilized the Triage Tool: No Chief Complaint: upper arm injury Nurse's Recommendation / WHEN: Now Nurse's Recommendation / WHERE: ED Other Patient Disposition Patient/Caregiver agrees to plan of care: Yes Patient is Urgent or Emergent Summary of Actions Referred patient to emergency services Instructed to go to Emergency Department Advised of Financial Disclaimer: Patient advised that recommendation for care provided during the call does not constitute an approval or authorization for payment by the [place] or its staff. Patient advised to report a community ED visit to the national Office of Community Care at within 72 hours. 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
--- OUTSIDE RECORDS SUMMARY | 2022-05-22 13:27 | XMS_ITS | Encounter Summary ---
:1995 Author Organization [facility] Address [address] [place] [phone] Insurance Providers: All historical and current Section [...] HEALTH HEALTH HP SE Jun 09, 84 [id number] [phone] MAGALIS MARTIN PATIENT PARTNERS [facility] 2020 9 7 RADHA ALBA CE R ORGANIZAT ION W/OUT OF NETWORK BENEFITS [facility] CENTR Jun 09 [id number] [phone] VERONICA PAT IENT DEDUCTIBL Y LNK 2018 27 2 MARGARITA [facility] LOS PLAN HSA W/HEALTH REIMBURSE MENT ARRANGEME NT MEDIMPACT PRESCRIPT HEALT Jun 09 [id number] [phone] MAGALIS MCPHERSON PATIENT RX ION H 2020 9 9 RADHA CURRAN ERS OPTUM RX PRESCRIPT CENTU Jun 09, [facility] [id number] [phone] SANIA DONIS PATIENT ION RYLIN 2018 27 1 MARGARITA [facility] HRA Selected Encounter This section includes the information on record at [place] for the Encounter. Date/Time Encounter Type Encounter Description Reason Provider Source May 14, 2022 03:47 Outpatient Encounter TELEPHONE TRIAGE PM IHE Encounter Template Text not used [...] 20 appointments. The data comes from all [facility]. Appointment Date/Time Appointment Type Appointment Facili ty Name May 16, 2022 10:34 AM AMBULATORY - NONE [facility] Jun 07, 2022 10:00 AM AMBULATORY - NONE [facility] Jun 07, 2022 10:30 AM AMBULATORY - SURGERY [facility] S Jun 14, 2022 01:00 PM AMBULATORY - NONE [facility] Jun 14, 2022 02:00 PM AMBULATORY - MEDICINE [facility] CS Active, Pending, and Scheduled [...] the Encounter. The data comes from all [facility]. Test Date/Time Test Type Test Details Facility Name May 15, 2022 04:59 PM Consult Order ORTHOPEDICS [facility] S [facility] OUTPT-ELBOW/FOREARM/WRIS T/HAND Cons Sexual Abuse Counsellor's Choice May 21, 2022 12:00 AM Laboratory - CBC BLOOD SP ONCE [facility] Chemistry Order May 21, 2022 12:00 AM Laboratory - COMPREHENSIVE METABOLIC [facility] Chemistry Order PANEL+MG PLASMA SP May 22, 2022 12:00 AM Imaging - Magnetic MRI ELBOW RIGHT (P) [facility] Resonance Imaging (MRI) Order Jun 07, 2022 10:00 AM Imaging - General ELBOW RIGHT 2 VIEWS [facility] Radiology Order RIGHT Social History: Smoking [...] 17, 2021 02:30 PM VA-TOBACCO FORMER USER [facility] Tobacco Use History This section includes a history of the smoking, or tobacco- related health factors, that were collected on or before the date of the Encounter. The data comes from the [place] facility where the Encounter took place. 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 Date/Time Encounter Note(s) Provider Source May 14, 2022 03:47 PM REPORT OF CONTACT: ALIREZA LANG [facility] LOCAL TITLE: PATIENT CONTACT NOTE STANDARD TITLE: REPORT OF CONTACT DATE OF NOTE: MAY 14, 2022@15:47 ENTRY DATE: MAY 14, 2022@15:47:37 AUTHOR: ALIREZA LANG EXP COSIGNER: URGENCY: STATUS: COMPLETED Primary Care Call Center Phone number verified as correct. would a CITC to [facility]. ER made an appt for 05/17/2022 for a bicep tear. /kobi/ ALIREZA LANG VISN23 [facility] Signed: 05/14/2022 15:50 Receipt Acknowledged By: * AWAITING SIGNATURE * SANGEETA THOMPSON * AWAITING SIGNATURE * MORRIS DELGADILLO
--- OUTSIDE RECORDS SUMMARY | 2022-05-22 13:29 | XMS_ITS ---
:1995 Author Organization [facility] Address [address] [place] [phone] Care Team Providers Name Role Phone [facility] Primary Care Provider Transplant Episode [facility] ([place] [place] - MNUMReferred on 05/05/2018Marked as Ended on 02/05/2019 Reason: Failure to Complete Testing Liver CoordinatorJOSUE Corderohone: N/AFax: N/AEmail: [email or web address] Care Team Name Role Phone Fax Email Mi Roth RN Liver Coordinator N/A N/A [email or web address] Referred MD Miguel A Referring Physician N/A [phone] N/A Events Pre-Donation Referred: 05/05/2018
--- OUTSIDE RECORDS SUMMARY | 2022-05-22 13:29 | XMS_ITS | Encounter Summary ---
:1995 Author Organization [facility] Address [address] [address] Care Team Providers Name Role Phone Needs Pcp, Assignment Primary Care Provider Encounter Details Date Type Department Care Team Description 08/11/2020 Lab Visit [place] [facility] Other chest pain; Laboratory Chest pain, unspecified type [address] [place] [address] Social History Tobacco Use Types Packs/Day Years Used Date Smoking Tobacco: Former Smokeless Tobacco: Never Sex Assigned at Date Recorded Not on file documented as of this encounter Plan of Treatment Not on filedocumented as of this encounter Procedures Procedure Name Priority Date/Time Associated Diagnosis Comme nts MAGNESIUM Routine 08/11/2020 9:54 AM Other chest p ain Results for this MARBLE COPER Chest pain, procedure are i n unspecified type the results section. TSH, SENSITIVE (WITH Routine 08/11/2020 9:54 AM Other ch est pain Results for this REFLEX) MARBLE COPER Chest pain, procedure are i n unspecified type the results section. PHOSPHORUS Routine 08/11/2020 9:54 AM Other chest p ain Results for this MARBLE COPER Chest pain, procedure are i n unspecified type the results section. documented in this encounter Results Phosphorus (08/11/2020 9:54 AM MARBLE COPER) athologist Signature Phosphorus 3.4 2.3 - 4.7 08/11/2020 [place] mg/dL 10:48 AM [facility] Specimen Anatomical Collection Method / Collection Time Recei viry Time (Source) Location / Volume Laterality Blood Venipuncture / 08/11/2020 9:54 08/11/2020 Unknown AM MAR[facility] COPER 10:13 AM MARBLE COPER Akira Segundo MD LAB_1 Performing Organization Address [facility] Phon e Number [facility] [address] [place], [place] [phone] Magnesium (08/11/2020 9:54 AM MARBLE COPER) athologist Signature Magnesium 2.1 1.6 - 2.6 08/11/2020 [place] mg/dL 10:48 AM [facility] Specimen Anatomical Collection Method / Collection Time Recei viry Time (Source) Location / Volume Laterality Blood Venipuncture / 08/11/2020 9:54 08/11/2020 Unknown AM MARBLE COPER 10:13 AM MARBLE COPER Akira Segundo MD LAB_1 Performing Organization Address [facility] Phon e Number [facility] [address] [place] [address] TSH with Free T4 (if TSH Abnormal) (08/11/2020 9:54 AM MARBLE COPER) athologist Signature TSH, Reflex 2.58 0.30 - 4.50 08/11/2020 [facility] u[facility]/mL 4:47 PM [facility] Specimen Anatomical Collection Method / Collection Time Recei viry Time (Source) Location / Volume Laterality Blood Venipuncture / 08/11/2020 9:54 08/11/2020 Unknown AM MARBLE COPER 10:13 AM MARBLE COPER Narrative [facility] - 08/11/2020 4:47 P M [facility] Lab will automatically reflex to Free T4 when TSH results are outside of reference range for patient's age group. Akira Segundo MD LAB_1 Performing Organization Address [facility] Phon e Number [facility] [address] [place] [address] documented in this encounter Visit Diagnoses Diagnosis Chest pain, unspecified type documented in this encounter Care Teams Field Consultant Relationship Specialty Start Date End Date Needs Pcp, Assignment PCP - General 08/11/20 [place] [address] documented as of this encounter
--- OUTSIDE RECORDS SUMMARY | 2022-05-22 13:29 | XMS_ITS | Encounter Summary ---
:1995 Author Organization [facility] Address [address] [place] [address]. [place] [address] Care Team Providers Name Role Phone Unavailable Primary Care Provider Unavailable Reason for Visit Reason Onset Date Comments Social Work Services 06/08/2018 Encounter Details Date Type Department Care Team Description 06/08/2018 Telephone [facility] Gretchen Stiles Work Services Trans[facility] MAMADOU Rhodes [address] [address] [place], [place] [phone] Social History Tobacco Use Types Packs/Day Years Used Date Smoking Tobacco: Never Assessed Sex Assigned at Date Recorded Not on file documented as of this encounter Miscellaneous Notes Telephone Encounter - Gretchen Stiles LICSW - 06/08/2018 10:50 AM IT SECURITY CONSULTING DIRECTOR I attempted to call [facility] to complete a liver donor screening, but the number is not working. I e-mailed him about this issue and asked him to call me with a working number. LUIZ Jasmine LICSW Clinical Field Marketing Associate and Independent Donor [facility] Pager: [phone] Direct: [phone] SECURITY CONSULTING DIRECTOR documented in this encounter Plan of Treatment Not on filedocumented as of this encounter Visit Diagnoses Not on filedocumented in this encounter
--- OUTSIDE RECORDS SUMMARY | 2022-05-22 13:29 | XMS_ITS | Encounter Summary ---
:1995 Author Organization [facility] Address [address] [address] Care Team Providers Name Role Phone Needs Pcp, Assignment Primary Care Provider Reason for Referral (Routine) - Closed Specialty Diagnoses / Procedures Referred By Contact Refer red To Contact Diagnoses Other chest pain Chest pain, unspecified type Akira Segundo MD Procedures Stress Echocardiogram [address] [place], [place] [address] Referral ID Status Reason Start Date Expiration Date Visits Requ ested Visits Authorized [id number] Closed 08/11/2020 11/10/2021 1 1 COORDINATOR Reason for Visit (Routine) - Closed Specialty Diagnoses / Procedures Referred By Contact Refer red To Contact Diagnoses Other chest pain Chest pain, unspecified type Akira Segundo MD Procedures Stress Echocardiogram [address] [place], [place] [address] Referral ID Status Reason Start Date Expiration Date Visits Requ ested Visits Authorized [id number] Closed 08/11/2020 11/10/2021 1 1 Encounter Details Date Type Department Care Team Description 08/15/2020 Hospital Encounter [facility] Other chest pain; Center Echocardiogra m Chest pain, unspecified type [address] [employer] [place], [place] [id number] Social History Tobacco Use Types Packs/Day Years Used Date Smoking Tobacco: Former Smokeless Tobacco: Never Sex Assigned at Date Recorded Not on file documented as of this encounter Medications at Time of Discharge Medication Sig Dispensed Refills Start Date End Date cetirizine (ZYRTEC) 10 MG Take 10 mg by mouth 0 tablet daily. drug not in computer trenbolone ethenate 0 FLUoxetine (PROZAC) 40 MG Take 40 mg by mouth 0 capsule daily. fluticasone propionate Place 2 Sprays into 0 (FLONASE) 50 MCG/ACT both nostrils daily. nasal solution OXYMETHOLONE OR 20 mg daily. 0 Testosterone Enanthate Pt takes 250 mg twice 0 200 MG/ML SOLN a week documented as of this encounter Plan of Treatment Not on filedocumented as of this encounter Procedures Procedure Name Priority Date/Time Associated Diagnosis Comme nts STRESS ECHO Routine 08/15/2020 3:00 PM Other chest p ain Results for this SPA COORDINATOR Chest pain, procedure are i n unspecified type the results section. documented in this encounter Results Stress Echocardiogram (08/15/2020 3:00 PM SPA COORDINATOR) Specimen (Source) Anatomical Collection Method Collection Time Re ceived Time Location / / Volume Laterality 08/15/2020 3:00 PM SPA COORDINATOR Narrative PN ECHO - 08/15/2020 3:01 PM SPA COORDINATOR STRESS ECHOCARDIOGRAM. Date: 08/15/2020 Start: 03:00 PM Facilit y: [facility] CONCLUSIONS REST: LV chamber size, wall thickness, and seg mental and global wall motion are normal. No significant valvular abno rmalities are seen. The visually estimated resting LVEF is 5 5 %. STRESS: All segments display appropriate hyperki nesis; ejection fraction increases appropriately. End systolic area decreases Excellent exercise capacity for age and gender (almost 16min) CONCLUSIONS: Normal exercise echocardiogram with adeq uate heart rate and workload. No evidence for inducible ischemia. Risk stratification by stress echocardio graphy is identified as low risk based on normal stress echocardiogr am. REST ECG Normal sinus rhythm. Mild nonspecific ST-T segments. Resting HR:75 bpmResting BP:120/72 mmHg Pre-Stress Physical Exam No medications which affect electrocard iographic interpretation. STRESS Stress Type: Bike Ergometer Peak HR: 171 bpm ?HR Response: Normal Peak BP: 214/104 mmHg ? BP Response: Abnormal Max Predicted HR: 194 bpm ? HR BP Product: 30034 % of Max Predicted HR: 88 ? Max Exercise: 6.9 METS Test Duration: 15.87 min Reason for Termination: Fatigue ? Exercise Effort: Good Risk Stratification: Low risk Stress Interpretation ECG portion of stress test is negative for ischemia. RESULTS Global LVEF (rest): Normal (LVEF >51%) Global LVEF (stress): Normal (LVEF >51% ) ECG No significant ST-T changes noted. ARRHYTHMIAS No rhythm abnormality. SYMPTOMS Fatigue. Musculoskeletal. Protocol completed. Predicted heart rat e achieved. No cardiovascular symptoms with maximal exercise. Procedure Medications ??- Atropine I.V. 1 mg. ??- Metoprolol/Lopressor I.V. 5 mg. M-MODE/2D MEASUREMENTS & CALCULATIONS EF Estimated: 55 % ?MR Radius: PROCEDURE Doppler Quality: Good quality pulse, con tinuous wave, and color Doppler was performed and interpreted. 2-D Quality:Good quality 2-dimensional e cho was performed and interpreted. Indications: Chest pain. Contrast Medium: Optison. Contrast Amt. - 2 ml Height: 68 inches Weight: 219 pounds BSA : 2.12 m^2 BMI: 33.3 kg/m^2 Rhythm: Sinus Gender: ? Male *Patient educated on test, all questions answered by: RN . *Suboptimal study; Echo dropout of the anterior, lat eral, apical, septal, inferior wall/s. 6 of 6 segments in standard apic al 4 chamber, 3 chamber, 2 chamber view/s are not visualized on miguel dy. An image enhancer was used due to suboptimal endocardial definition . With the use of an image enhancer, the segments of the left ventr icle were reasonably visualized. *IV Size: 22 ga; IV Location : right; # of attempts: 1; Vein: accessory cephalic vein. SIGNATURE DEMOGRAPHICS Patient Name ?? VERONICA RODRÍGUEZ ?? Room N [facility] ? OUTPT Patient Number [id number] ?Date of Study ? 08/15/2020 Accession ?[id number] ? In terpreting ?Lilian DIANE ? Physician ? 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 VASU, RUMA Nurse ?AD, choke reamer Note Hector Quintana MD - 08/15/2020For matting of this note might be different from the original. STRESS ECHOCARDIOGRAM. Date: 08/15/2020 Start: 03:00 PM Facilit [facility]: [facility] CONCLUSIONS REST: LV chamber size, wall thickness, and seg mental and global wall motion are normal. No significant valvular abno rmalities are seen. The visually estimated resting LVEF is 5 5 %. STRESS: All segments display appropriate hyperki nesis; ejection fraction increases appropriately. End systolic area decreases Excellent exercise capacity for age and gender (almost 16min) CONCLUSIONS: Normal exercise echocardiogram with adeq uate heart rate and workload. No evidence for inducible ischemia. Risk stratification by stress echocardio graphy is identified as low risk based on normal stress echocardiogr am. REST ECG Normal sinus rhythm. Mild nonspecific ST-T segments. Resting HR:75 bpmResting BP:120/72 mmHg Pre-Stress Physical Exam No medications which affect electrocard iographic interpretation. STRESS Stress Type: Bike Ergometer Peak HR: 171 bpm HR Response: Normal Peak BP: 214/104 mmHg BP Response: Abno rmal Max Predicted HR: 194 bpm HR BP Product : 89307 % of Max Predicted HR: 88 Max Exercise: 6.9 METS Test Duration: 15.87 min Reason for Termination: Fatigue Exercis e Effort: Good Risk Stratification: Low risk Stress Interpretation ECG portion of stress test is negative for ischemia. RESULTS Global LVEF (rest): Normal (LVEF >51%) Global LVEF (stress): Normal (LVEF >51% ) ECG No significant ST-T changes noted. ARRHYTHMIAS No rhythm abnormality. SYMPTOMS Fatigue. Musculoskeletal. Protocol completed. Predicted heart rat e achieved. No cardiovascular symptoms with maximal exercise. Procedure Medications - Atropine I.V. 1 mg. - Metoprolol/Lopressor I.V. 5 mg. M-MODE/2D MEASUREMENTS & CALCULATIONS EF Estimated: 55 % MR Radius: PROCEDURE Doppler Quality: Good quality pulse, con tinuous wave, and color Doppler was performed and interpreted. 2-D Quality:Good quality 2-dimensional e cho was performed and interpreted. Indications: Chest pain. Contrast Medium: Optison. Contrast Amt. - 2 ml Height: 68 inches Weight: 219 pounds BSA : 2.12 m^2 BMI: 33.3 kg/m^2 Rhythm: Sinus Gender: Male *Patient educated on test, all questions answered by: RN . *Suboptimal study; Echo dropout of the anterior, lat eral, apical, septal, inferior wall/s. 6 of 6 segments in standard apic al 4 chamber, 3 chamber, 2 chamber view/s are not visualized on miguel dy. An image enhancer was used due to suboptimal endocardial definition . With the use of an image enhancer, the segments of the left ventr icle were reasonably visualized. *IV Size: 22 ga; IV Location : right; # of attempts: 1; Vein: accessory cephalic vein. SIGNATURE DEMOGRAPHICS Patient Name VERONICA RODRÍGUEZ Room Number OUTPT Patient Number [id number] Date of Study 0 08/15/2020 Interpreting EVELINA QUINTANA, Lilian Physician Date of 1995 Ordering NORMA Arteaga Physician Primary NEEDS MD Physician ASSIGNMENT Restaurant Floor Manager [facility] Nurse AD, RN Akira Segundo MD ET ECHO ORDERABLES Performing Organization Address City/State/ZIP Code Phon e Number PN ECHO documented in this encounter Visit Diagnoses Diagnosis Chest pain, unspecified type documented in this encounter Administered Medications Inactive Administered Medications - up to 3 most recent administrations Medication Order MAR Action Action Date Dose Rate Site atropine injection (0.1mg/mL) 0.5 Given 08/15/2020 2:32 PM SPA COORDINATOR 0 .5 mg mg 0.5 mg, Intravenous, PRN, Other, when patient unable to achieve 85% maximum predicted heart rate after having reached highest level of exertion, Starting on Fri08/15/20 at 1406, Until Fri08/15/20 at 1444, For 4 doses, May repeat times 3 for total dose of 2 mg if needed., HVC Card Given 08/15/2020 2:30 PM SPA COORDINATOR 0.5 mg metoprolol tartrate (LOPRESSOR) injection 5-15 Given 0 08/15/2020 2:40 PM SPA COORDINATOR 5 mg mg 5-15 mg, Intravenous, [id number], Other, High Blood Pressure, Rapid Heart Rate, Starting on Fri08/15/20 at 1406, Until Fri08/15/20 at 1444, For 3 doses, Administer upon completion of test for angina or ST elevation or depression., HVC Card perflutren protein A microsphere (OPTISON) Given 08/15/2020 2:15 PM SPA COORDINATOR 2 mL injection 0.5-8.7 mL 0.5-8.7 mL, Intravenous, ONCE, On Fri08/15/20 at 1430, For 1 dose, Administer diluted OPTISON once PRN over the course of test. If 3 mL of OPTISON diluted with 3 mL saline, then administer 0.4 mL intravenous first dose, subsequent doses 0.1 mL intravenous every 2 minutes per set of pictures. If 3 mL of OPTISON diluted with 7 mL saline, then administer 1 mL intravenous first dose, subsequent doses 0.2 mL intravenous every 2 minutes per set of pictures., HVC Card sodium chloride 0.9% injection 10-60 mL Given 08/15/2020 2:15 PM SPA COORDINATOR 20 mL 10-60 mL, Intravenous, PRN, Line Patency, Line Care, Starting on Fri08/15/20 at 1406, Until Fri08/15/20 at 1444, Pre-Procedure documented in this encounter Care Teams Warehouse Shipper Relationship Specialty Start Date End Date Needs Pcp, Assignment PCP - General 08/11/20 [place] [address] documented as of this encounter
--- OUTSIDE RECORDS SUMMARY | 2022-05-22 13:29 | XMS_ITS | Encounter Summary ---
:1995 Author Organization [facility] Address [address] [place] [address] Care Team Providers Name Role Phone Unavailable Primary Care Provider Unavailable Encounter Details Date Type Department Care Team Description 06/12/2018 Orders Only [facility] [place], Transplant donor Transplant Clinic MD Gonzalo evaluation (Primary [address] [facility] [address] [facility] [address]) [place], [place] [address] [place], [place] [phone] (Wo rk) Social History Tobacco Use Types Packs/Day Years Used Date Smoking Tobacco: Never Assessed Sex Assigned at Date Recorded Not on file documented as of this encounter Plan of Treatment Not on filedocumented as of this encounter Visit Diagnoses Diagnosis Transplant donor evaluation - Primary Other specified general medical examinat ion documented in this encounter
--- OUTSIDE RECORDS SUMMARY | 2022-05-22 13:29 | XMS_ITS | Encounter Summary ---
:1995 Author Organization [facility] Address [address] [address] Care Team Providers Name Role Phone Needs Pcp, Assignment Primary Care Provider Reason for Referral Procedure/Equipment (Routine) - Incomplete Specialty Diagnoses / Procedures Referred By Contact Refer red To Contact Diagnoses Cough Wayne Baker MD Procedures XR Chest 2 Views [address] [place], [place] [address] Referral ID Status Reason Start Date Expiration Date Visits V isits Requested Authorized [id number] Incomplete 01/24/2021 04/25/2022 1 1 Reason for Visit Reason Comments SOB (SHORTNESS OF BREATH) CHILLS FATIGUE Encounter Details Date Type Department Care Team Description 01/24/2021 Office Visit Wayne English MD Cough; Urgent Care [address] [facility] Cold sore [address] [place] [address] [place] [address] [phone] Social History Tobacco Use Types Packs/Day Years Used Date Smoking Tobacco: Former Smokeless Tobacco: Never Sex Assigned at Date Recorded Not on file documented as of this encounter Last Filed Vital Signs Vital Sign Reading Time Taken Comments Blood Pressure 143/83 01/24/2021 11:57 AM CDT Pulse 72 01/24/2021 11:57 AM CDT Temperature 36.7 ??C (98 ??F) 01/24/2021 11:57 AM CDT Respiratory Rate 16 01/24/2021 11:57 AM CDT Oxygen Saturation 98% 01/24/2021 11:57 AM CDT Inhaled Oxygen Concentration - - Weight - - Height - - Body Mass Index - - documented in this encounter Progress Notes Wayne Baker MD - 01/24/2021 10:35 AM CDT Note dictated Wayne Baker MD - 01/24/2021 12:00 AM CDT NAME: MARCOS MARTIN CSN: [id number] CLINIC NOTE DATE OF SERVICE: 01/24/2021 : 1995 CHIEF COMPLAINT: Cough and shortness of breath. HPI: This pleasant 25-year-old comes in today complaining of cough and shortness of breath. He says he has had this for the last couple days. His significant other has pneumonia. He just wants to make sure that he could not have pneumonia as well. He has had pneumonia in 2011 and apparently got quite sick from it, so he just wanted to make sure. He has been vaccinated against COVID. His significant other tested negative for COVID. He does not have a fever. He is fatigued. He has some mild phlegm. Fartun have some mild chest pressure and has had a history of heart attacks in the past but absolutelysays this is not his heart, and he does not want to have any workup done on his heart. He just wants an x-ray and a COVID test, and that is all. He denies a fever or ear pain. He denies a sore throat. He has some mild nasal congestion and phlegm in his throat. He feels short of breath and has some mild chest pressure. Does not have a history of asthma. Denies any long car rides or plane rides. Deniesany calf tenderness. PAST MEDICAL HISTORY: Reviewed through [employer]. PAST SURGICAL HISTORY: Reviewed through [employer]. MEDICATIONS: Reviewed through [employer]. ALLERGIES: REVIEWED THROUGH [employer]. OBJECTIVE: VITAL SIGNS: Blood pressure 143/83, temperature 98, pulse 72, respirations 16, O2 sat is 98% on roomair. GENERAL: Alert and oriented, in no apparent distress. HEENT: The patient does have a cold sore on his left lower lip. Tympanic membranes without signs of infection. Oropharynx is pink with no tonsillar enlargement. LUNGS: Clear. HEART: Regular. ABDOMEN: Soft, nontender. SKIN: No rash or cyanosis. LABS: COVID swab was obtained. DIAGNOSTIC STUDIES: Chest x-ray: Two views were obtained. costovertebral angles are clear. within normal limits. There is no evidence of pneumothorax or pulmonary effusion. Bony thorax is unremarkable. ASSESSMENT: 1. Exposure to pneumonia. 2. Coronavirus Disease 2019 swab obtained. 3. Cough, shortness of breath. I did tell the patient that I did want to do an EKG and, with his chest pressure, he should go to the emergency room especially with his history of cardiac disease. He adamantly refuses to go, understanding that he could have a cardiac or respiratory issue that needs to be evaluated at the emergency room, and he declines that. He declines an EKG or D-dimer here at Urgent Care. He understands by declining going to the emergency room or further testing, he could have a condition, which would result balbir medical illness, disability, hospitalization, or . He promises if symptoms worsen he will follow up. We will call him with the results of the Coronavirus Disease 2019 swab if they are positive; otherwise, the results will go into MyChart. WAYNE BAKER MD KMM/AQS /[id number] documented in this encounter Plan of Treatment Not on filedocumented as of this encounter Procedures Procedure Name Priority Date/Time Associated Comments Diagnosis 2019 NOVEL Routine 01/24/2021 12:25 Cough Results for this CORONAVIRUS PM CDT procedure are i n the results section. documented in this encounter Results XR Chest 2 Views (01/24/2021 12:40 PM CDT) Anatomical Region Laterality Modality Chest, Lung Digital Radiography Specimen (Source) Anatomical Collection Method Collection Time Re ceived Time Location / / Volume Laterality 01/24/2021 12:28 PM CDT Impressions 01/24/2021 1:10 PM CDT COMPARISON: ??None. FINDINGS: ??Two views were obtained. ??T he lungs and costophrenic angles are clear. ??Heart size and pulmonary vascularity are within normal limits. ??There is no evidence of pneumothorax or pleural effusion. Bony thorax is unremarkable. Procedure Note Ken Covington MD - 01/24/2021Format ting of this note might be different from the original. IMPRESSION COMPARISON: None. FINDINGS: Two views were obtained. The l ungs and costophrenic angles are clear. Heart size and pulmonary vascularity are within normal limits. There is no evidence of pneumothorax or pleural effusion. Bony thorax is unremarkable. Wayne Baker MD RAD GD 2019 Novel Coronavirus (COVID-19) - Collect in Clinic Today (01/24/2021 12:25 PM CDT) [facility] Method Time Signature COVID-19 Not Not 01/25/2021 [facility] Interpretation Detected Detected 3:48 AM [facility]AL [facility] CDT Source Nares, left 01/25/2021 [facility] and right 3:48 AM LABORATORY CDT Specimen Anatomical Collection Method Collection Time Receive d Time (Source) Location / / Volume Laterality Swab (Source ENTIRE ANTERIOR Non-blood 01/24/2021 12:25 01/25/20 21 1:00 Required) NARIS / Unknown Collection / PM CDT PM CDT Unknown Narrative [facility] - 01/25/2021 3:48 AM CDT Test performed by Lab Aide Mediated Amplification. TMA has been shown to be equivalent to commercial real-time PCR t ests. This test has been authorized by the FDA under an Emergency Use Authorization (EUA) for use by authorized laboratories. 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
--- OUTSIDE RECORDS SUMMARY | 2022-05-22 13:29 | XMS_ITS | Encounter Summary ---
:1995 Author Organization [facility] Address [address] [place] [address] Care Team Providers Name Role Phone Gil Meeks Primary Care Provider Encounter Details Date Type Department Care Team Description 11/27/2018 Travel Social History Tobacco Use Types Packs/Day Years Used Date Smoking Tobacco: Never Assessed Sex Assigned at Date Recorded Not on file documented as of this encounter Plan of Treatment Not on filedocumented as of this encounter Visit Diagnoses Not on filedocumented in this encounter Care Teams Carpet Measurer Relationship Specialty Start Date End Date Gil Meeks PCP - General Family Practice 11/27/18 06/28/20 documented as of this encounter
--- OUTSIDE RECORDS SUMMARY | 2022-05-22 13:29 | XMS_ITS | Encounter Summary ---
:1995 Author Organization [facility] Address [address], [place] [address] Care Team Providers Name Role Phone Needs Pcp, Assignment Primary Care Provider Reason for Visit Reason Comments PAIN, PENIS Encounter Details Date Type Department Care Team Description 12/05/2020 Hospital Encounter Renetta Grimes MD Penile pain [facility] re [address] [address] [place] [id number] (Wo rk) Social History Tobacco Use Types Packs/Day Years Used Date Smoking Tobacco: Former Smokeless Tobacco: Never Sex Assigned at Date Recorded Not on file documented as of this encounter Last Filed Vital Signs Vital Sign Reading Time Taken Comments Blood Pressure 142/80 12/05/2020 3:26 PM CDT Pulse 76 12/05/2020 3:26 PM CDT Temperature 36.6 ??C (97.9 ??F) 12/05/2020 3:26 PM CDT Respiratory Rate 16 12/05/2020 3:26 PM CDT Oxygen Saturation 100% 12/05/2020 3:26 PM CDT Inhaled Oxygen Concentration - - Weight - - Height - - Body Mass Index - - documented in this encounter Medications at Time of Discharge Medication Sig Dispensed Refills Start Date End Date B Complex Vitamins (B 0 COMPLEX-B12 OR) cetirizine (ZYRTEC) 10 Take 10 mg by mouth 0 MG tablet daily. drug not in computer Beet Root 0 drug not in computer trenbolone ethenate 0 FLUoxetine (PROZAC) 40 Take 40 mg by mouth 0 MG capsule daily. fluticasone propionate Place 2 Sprays into 0 (FLONASE) 50 MCG/ACT both nostrils daily. nasal solution magnesium oxide (AKA daily with breakfast. 0 MAG-OX 400) 250 MG tablet OXYMETHOLONE OR 20 mg daily. 0 Testosterone Enanthate Pt takes 250 mg twice 0 200 MG/ML SOLN a week doxycycline monohydrate Take 1 Capsule by 14 Capsule 0 12/0512/12/2020 (MONODOX) 100 MG mouth two times a day capsule for 7 days. documented as of this encounter ED Notes Khloe Serna MD - 12/05/2020 3:38 PM CDT Chief Complaint: Chief Complaint Patient presents with ??? PAIN, PENIS History of Present Illness: Nilton Moya is a 25 y.o.male who had a new sexual partner recently andis concerned about the possibility of sexually transmitted diseases. He has penile pain that seems to be worse when his bladder is full but he does not have any dysuria. He has no penile drainage. No fever. PMH: Reviewed and updated online Medications: Reviewed and updated online. Allergies: Reviewed and updated online. Social History: Reviewed and updated online. Objective: BP (!) 142/80 (BP Location: Left Arm, BP Cuff Size: Regular - Long) Pulse 76 Temp 36.6 ??C (97.9??F) (Oral) Resp 16 SpO2 100% BP (!) 142/80 (BP Location: Left Arm, BP Cuff Size: Regular - Long) Pulse 76 Temp 36.6 ??C (97.9 ??F) (Oral) Resp 16 SpO2 100% No acute distress noted. HEENT: NCAT. PERRL. EOMI. Sclerae and conjunctivae clear. No icterus. : Circumcised without penile lesions. Testicles nontender descended bilaterally. No drainage. UC Course: Medications cefTRIAXone (ROCEPHIN) injection SOLR 500 mg (has no administration in time range) Assessment: 1. Penile pain Plan: STD screening is pending. Patient prefers empiric treatment. Medications Prescribed this Visit Disp Refills Start End doxycycline monohydrate (MONODOX) 100 MG capsule 14 Capsule 0 12/05/2020 12/12/2020 Take 1 Capsule by mouth two times a day for 7 days. Notes to Pharmacy: Pharmacy may substitute hyclate or monohydrate tab or capsule based on insurance Oral documented in this encounter Plan of Treatment Not on filedocumented as of this encounter Procedures Procedure Name Priority Date/Time Associated Diagnosis Comme nts CHLAMYDIA & GC, Routine 12/05/2020 4:02 PM Penile pain Result s for this URINE (14 YEARS AND CDT procedur e are in OLDER) the results section. TREPONEMA SCREEN STAT 12/05/2020 3:45 PM Penile pain Resul ts for this CDT procedure are i n the results section. HIV 1/2 AG/AB 4TH Routine 12/05/2020 3:45 PM Penile pain Resu lts for this GEN CDT procedure are i n the results section. HEPATITIS C STAT 12/05/2020 3:45 PM Penile pain Results f or this ANTIBODY, WITH CDT procedure are in REFLEX the results section. documented in this encounter Results Chlamydia and GC, Urine STD (12/05/2020 4:02 PM CDT) 1DayLater Method Time Signature Chlamydia Not Not 12/06/2020 [facility] Trachomatis Detected Detected 1:33 PM CDT CENTRAL LAB STD N. gonorrhoeae Not Not 12/06/2020 [facility] STD Detected Detected 1:33 PM CDT CENTRAL LAB Specimen Anatomical Collection Method Collection Time Receive d Time (Source) Location / / Volume Laterality Urine STD (Urine Non-blood 12/05/2020 4:02 PM 12/05 4:03 for STD) Collection / CDT PM CDT Unknown Narrative [facility] CENTRAL LAB - 12/06/2020 1:33 PM CDT Test performed by Slider Assembler Mediated Amplification (TMA). Khloe Serna MD LAB_1 Performing Organization Address City/State/ZIP Code Phon e Number [facility] CENTRAL LAB [address] [address] Treponema Screen (TRPAB) (12/05/2020 3:45 PM CDT) 1DayLater Method Time Signature Treponema Screen 0.028 {s_co_ratio 12/05/2020 [facility] Result } 7:06 PM CDT LABORATORY Treponema Screen Non Non 12/05/2020 [facility] Interpretation Reactive Reactive 7:06 PM CDT LABORATORY Specimen Anatomical Collection Method / Collection Time Recei viry Time (Source) Location / Volume Laterality Blood Venipuncture / 12/05/2020 3:45 12/05/2020 3:46 Unknown PM CDT PM CDT Khloe Serna MD LAB_1 Performing Organization Address [facility] Phon e Number [facility] [address] [place] [address] Hepatitis C Virus [place] In-House (HCAB) (12/05/2020 3:45 PM CDT) [facility] Method Time Signature Hepatitis C Negative Negative 12/05/2020 [facility] Antibody (Non (Non 7:03 PM CDT LABORATORY Reactive) Reactive) Comment: Antibodies to HCV not detected. Does not exclude the possiblity of exposure to HCV. Specimen Anatomical Collection Method / Collection Time Recei viry Time (Source) Location / Volume Laterality Blood Venipuncture / 12/05/2020 3:45 12/05/2020 3:46 Unknown PM CDT PM CDT Khloe Serna MD LAB_1 Performing Organization Address [facility] Phon e Number [facility] [address] [place] [address] HIV 1/2 Ag/Ab 4th Generation (12/05/2020 3:45 PM CDT) [facility] Method [employer] Signature HIV 1/2 Negative Negative 12/05/2020 [facility] Antigen/Antib (Non (Non 7:03 PM CDT LABORATORY toribio (4th Reactive) Reactive) generation) Comment: HIV-1 p24 Antigen and HIV-1/HIV -2 Antibody not detected Specimen Anatomical Collection Method / Collection Time Recei viry Time (Source) Location / Volume Laterality Blood Venipuncture / 12/05/2020 3:45 12/05/2020 3:46 Unknown PM CDT PM CDT Khloe Serna MD LAB_1 Performing Organization Address [facility] Phon e Number [facility] [address] [place] [address] documented in this encounter Visit Diagnoses Diagnosis Penile pain Unspecified disorder of penis Triage Assessment Note - Milvia Miller RN - 12/05/2020 3:21 PM CDT Patient having constant penile pain x 3 days. Denies any urinary symptoms. Patient has had a new sexual partner and would like STD testing. documented in this encounter Administered Medications Inactive Administered Medications - up to 3 most recent administrations Medication Order MAR Action Action Date Dose Rate Site cefTRIAXone (ROCEPHIN) Given 12/05/2020 4:02 PM 500 mg Left Ventralgluteal injection SOLR 500 mg CDT 500 mg, Intramuscular, ONCE, On Fri12/05/20 at 1600, For 1 dose, Indications: Penile Pain documented in this encounter Active and Recently Administered Medications Times are shown in CDT. Scheduled Medication Order 12/03/2020 12/04/2020 12/05/2020 cefTRIAXone (ROCEPHIN) injection SOLR 500 mg (COMPLETED) 1602 (Given - Provider: Dima Redding RN) 500 mg, Intramuscular, ONCE, On 12/05 at 1600, For 1 dose, Indications: Penile Pain documented in this encounter Care Teams Client Services Manager Relationship Specialty Start Date End Date Needs Pcp, Assignment PCP - General 08/11/20 [place] [address] documented as of this encounter
--- OUTSIDE RECORDS SUMMARY | 2022-05-22 13:29 | XMS_ITS | Encounter Summary ---
:1995 Author Organization [facility] Address [address] [place] [address] Care Team Providers Name Role Phone Unavailable Primary Care Provider Unavailable Reason for Visit Reason Onset Date Comments Transplant Donor Referral 05/05/2018 New living ramiro er donor referral Encounter Details Date Type Department Care Team Description 05/05/2018 Telephone [facility] Pham Edmonds, Transp lant Donor Transplant overage shortage and damage clerk Referral (New living [address] [facility] liver donor referral) [place] [address] Social History Tobacco Use Types Packs/Day Years Used Date Smoking Tobacco: Never Assessed Sex Assigned at Date Recorded Not on file documented as of this encounter Miscellaneous Notes Telephone Encounter - Pham Edmonds LPN - 05/05/2018 2:31 PM CST Is abo [employer]. Close friend. Very anxious to test.Will send pkt. PULLER Telephone Encounter - Melonie Bird - 05/05/2018 1:35 PM CST Images from the original note were not included. Toya LEA [id number] LIVING LIVER DONOR EVALUATION Donor First Name cassi Donor MRN Donor Middle Name Completed 04/29/2018 12:48 PM Donor Last Name renee Record Id [id number] 1995 [place] Screen PASSED Intended Recipient Recipient First Name sonn Relationship Close Friend Recipient Last Name dahl Recipient Diagnosis Recipient 1981-11-27 Recipient Insurance Provider Recipient MRN Recipient Insurance Type Recipient Height Recipient Weight Recipient's ABO Donor Information Age 22 Race Not Specified Ht 175 cm (5' 9'') Ethnicity / Wt 87.9 kg (194 lbs) Preferred Language Slovenian BMI 28.70 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 No Gender Male Blood Type O Demographics Home Address [place] [address] # [phone] [facility] Type [facility] # Zip Code [address] Type Country [facility] Preferred Contact day Thais Lazaro Tue Email [email or web address] Preferred Contact time 1:00 PM-4:00 PM, 09:00 AM- 11:00 AM && Donor's Medical Information Medical History None Reported Medications None Reported Surgical History Oral Surgery, NOS Allergies NKDA Social History EtOH: Rare (1-2 drinks/month) Illicit Drug Use: Denies Tobacco: Remote; Quit 2014; (06/12 ppd x 1 year) Self-Reported Functional Status I am able to participate in strenuous sports such as swimming, singles tennis, football, basketball, or skiing Family Medical History Cancer (denies) Clots or Clotting Disease (denies) Diabetes (denies) Heart Disease (denies) Hypertension (denies) Inflammatory Bowel Disease (denies) Liver Disease (denies) Mental Illness (denies) Exercise Frequency Exercise (>3X per week) Review of Organ Systems Review of Systems Airway or Lungs: No Blood Disorder: No Cancer: No Diabetes,Thyroid,Adrenal,Endocrine Disorder: No Digestive or Liver: No Heart or Circulatory System: No Immune Diseases: No Kidneys and Bladder: No Male Health: No Muscles,Bones,Joints: No Neuro: No Psych: No && Donor's Social Information Medical Insurance Status Has medical insurance Level of Education Some college education Marital Status Single 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 (NO) Commercial sex < 12 months. (NO) Illicit IV drug use < 5yrs. (YES) Male:male sexual contact < 5yrs. (NO) Other high risk sexual contact < 12 months. (NO) Reason for Donation Referral Tx Candidate Reason for Donation if i can save a life i'll save a life. it's my calling to protect love ones. it's a [employer] mentality Donor Motivation Highly motivated donor Patient Comments PCP Contact PCP Name PCP City PCP State PCP Phone Emergency Contact First Name michaelle First Name marie Last Name renee Last Name renee Phone Type Mobile Phone Type Mobile Relationship Father Relationship Mother Office Use Reviewed By Reviewed 05/04/2018 Admin Folder Accept Comments 05/04 - Passed Eval Lost for Followup Extended Comments [facility] ID [id number] survey status completed Activity History Call Task Due Date 05/05/2018 Last Modified Date/Time 05/05/2018 11:58 AM Comments Call Task Due Date 05/05/2018 Last Modified Date/Time 05/05/2018 11:51 AM Comments PULLER documented in this encounter Plan of Treatment Not on filedocumented as of this encounter Visit Diagnoses Not on filedocumented in this encounter
--- OUTSIDE RECORDS SUMMARY | 2022-05-22 13:29 | XMS_ITS | Encounter Summary ---
:1995 Author Organization [facility] Address [address] [place] [address] Care Team Providers Name Role Phone Unavailable Primary Care Provider Unavailable Encounter Details Date Type Department Care Team Description 05/29/2018 Telephone [facility] Transplant Ewa Edmonds LPN [place] [phone] Social History Tobacco Use Types Packs/Day Years Used Date Smoking Tobacco: Never Assessed Sex Assigned at Date Recorded Not on file documented as of this encounter Miscellaneous Notes Telephone Encounter - Pham Edmonds LPN - 05/29/2018 1:54 PM CST Nilton wants to cont process. for SW to screen. PICU documented in this encounter Plan of Treatment Not on filedocumented as of this encounter Visit Diagnoses Not on filedocumented in this encounter
--- OUTSIDE RECORDS SUMMARY | 2022-05-22 13:29 | XMS_ITS | Encounter Summary ---
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 documented as of this encounter Plan of Treatment Not on filedocumented as of this encounter Visit Diagnoses Not on filedocumented in this encounter Care Teams Pulley Man Relationship Specialty Start Date End Date [facility] PCP - General 06/29/20 [place] [address] documented as of this encounter
--- OUTSIDE RECORDS SUMMARY | 2022-05-22 13:29 | XMS_ITS | Encounter Summary ---
:1995 Author Organization [facility] Address [address] [address] Care Team Providers Name Role Phone Needs Pcp, Assignment Primary Care Provider Reason for Visit Reason Comments Clinician Finder Team Encounter Details Date Type Department Care Team Description 12/12/2020 Telephone [facility] 38[address] Needs Pcp, Clinician Finder Team Family Medicine Assignment [address] [facility] [place] [phone] Social History Tobacco Use Types Packs/Day Years Used Date Smoking Tobacco: Former Smokeless Tobacco: Never Sex Assigned at Date Recorded Not on file documented as of this encounter Plan of Treatment Not on filedocumented as of this encounter Visit Diagnoses Not on filedocumented in this encounter Care Teams Director Of Student Affairs Relationship Specialty Start Date End Date Needs Pcp, Assignment PCP - General 08/11/20 [place] [address] documented as of this encounter
--- OUTSIDE RECORDS SUMMARY | 2022-05-22 13:29 | XMS_ITS | Encounter Summary ---
:1995 Author [facility] Address [address], [place] [address] Care Team Providers Name Role Phone Needs Pcp, Assignment Primary Care Provider Reason for Visit Reason Comments Fever Pharyngitis CONGESTION, SINUS Encounter Details Date Type Department Care Team Description 03/17/2021 Office Visit Justyna Griffiths, Viral URI (Primary Dx); [place] [facility] Fever, unspecified fever cause; Care [address] History of asthma; [address] [facility] Close exposure to COVID-[place] [id number] [phone] (Wo rk) Social History Tobacco Use Types Packs/Day Years Used Date Smoking Tobacco: Former Smokeless Tobacco: Never Sex Assigned at Date Recorded Not on file documented as of this encounter Last Filed Vital Signs Vital Sign Reading Time Taken Comments Blood Pressure 140/73 03/17/2021 1:11 PM CDT Pulse 69 03/17/2021 1:11 PM CDT Temperature 36.9 ??C (98.4 ??F) 03/17/2021 1:11 PM CDT Respiratory Rate 24 03/17/2021 1:11 PM CDT Oxygen Saturation 98% 03/17/2021 1:11 PM CDT Inhaled Oxygen Concentration - - Weight - - Height - - Body Mass Index - - documented in this encounter Progress Notes Justyna Botello, DO - 03/17/2021 1:00 PM CDT Rooming Notes: Spent a weekend with friend who now has covid. Pt started having ST,sinus congestion and fever yesterday. nauseated [facility] SUBJECTIVE: Chief Complaint Patient presents with ??? Fever ??? Pharyngitis ??? CONGESTION, SINUS Nilton Moya is a pleasant 25 y.o. male who presents for evaluation of above. Patient was with friend all weekend who now has COVID. Patient developed sore throat, nasal congestion, nausea, and fever yesterday. Tmax 102. He had some vomiting yesterday. No vomiting today. Tolerating oral intake. Could not taste or smell when he ate [employer] yesterday. Taking Dayquil, ibuprofen. Nocough, wheezing, chest pain, or shortness of breath. Hx of asthma, no recent flares as adult. No longer has inhaler at home. He is fully vaccinated against COVID, secnd [facility] doses were 09/02/2020 was 09/28/2020. Patient's medications, allergies, past medical, surgical, social and family histories were reviewed and updated as appropriate. Review of Systems: Pertinent positives noted above, otherwise negative. Nursing notes were reviewed. OBJECTIVE: Vital Signs: BP (!) 140/73 (BP Location: Left Arm, BP Cuff Size: Regular - Long) Pulse 69 Temp 36.9 ??C (98.4 ??F) (Oral) Resp 24 SpO2 98% General: Alert and interactive, nontoxic appearing and in NAD. Eyes: No conjunctival injection. PERRL, full EOM. External normal. Ears: Normal pinnae. Canals are normal. TMs normal without erythema or effusion. Nose: Congested. Clear rhinorrhea. Throat: Moist mucous membranes without lesions. Pharynx without erythema, exudate or edema. Uvula midline. No drooling or trismus. Neck: Supple with full ROM. No tenderness or cervical adenopathy. Respiratory: Normal respiratory effort. Lungs are clear with good breath sounds. No wheeze or crackles. Heart: Regular rate and rhythm without murmurs, rubs, or gallops. Skin: Dry, warm, intact. No rashes. ASSESSMENT: 1. Viral URI , suspect COVID. 2. Fever, unspecified fever cause 3. History of asthma 4. Close exposure to COVID-19 virus PLAN: Symptoms concerning for COVID. Discussed this with patient. COVID and Strep PCR tests are pending. Informed patient how he will be notified of the result. Instructed patient to isolate at home until hegets the result. Discussed symptomatic cares. He has hx of asthma. No evidence of exacerbation at this time. Provided paper prescriptions for prednisone and albuterol inhaler. Discussed parameters for filling the medications. Zofran if needed for nausea or vomiting. Follow up with primary care in 3-5 days if no gradual improvement. Discussed s/sx that warrant emergent evaluation in the ER sooner. Patient verbalized understanding of discussion and agreed with the plan. Patient was discharged ambulatory and in stable condition. Medications Prescribed this Visit Disp Refills Start End predniSONE (DELTASONE) 20 MG tablet 10 Tablet 0 03/17/2021 03/22/2021 Take 2 Tablets by mouth daily for 5 days. Oral ALBUterol sulfate HFA 108 (90 Base) MCG/ACT inhaler 1 Each 0 03/17/2021 Inhale 1-2 Puffs every 4 hours as needed for Wheezing. Notes to Pharmacy: Pharmacist to dispense only the amount written. Pharmacy may substitute albuterol HFA products based on insurance. Inhalation ondansetron (ZOFRAN-ODT) 4 MG disintegrating tablet 5 Tablet 0 03/17/2021 Take 1 Tablet by mouth every 8 hours as needed for Nausea. Oral See AVS for further discharge instructions. documented in this encounter Nursing Notes Eli Yu RN - 03/17/2021 1:00 PM CDT Spent a weekend with friend who now has covid. Pt started having ST,sinus congestion and fever yesterday. nauseated documented in this encounter Plan of Treatment Not on filedocumented as of this encounter Procedures Procedure Name Priority Date/Time Associated Diagnosis Comme nts STREP GROUP A, STAT 03/17/2021 1:15 PM Fever, unspecified R esults for this MOLECULAR DETECTION CDT fever cause procedur e are in the results section. 2019 NOVEL Routine 03/17/2021 1:15 PM Fever, unspecified Res ults for this CORONAVIRUS CDT fever cause procedure are i n the results section. documented in this encounter Results STREP GROUP A, Molecular Detection (03/17/2021 1:15 PM CDT) [facility] Method Time Signature Group A Strep Not Detected Not Detected 03/17/2021 MURPHY Segovia 4:01 PM CDT LABORATORY Comment: Methodology: Qualitative real-t peggy PCR assay Specimen Anatomical Collection Method Collection Time Receive d Time (Source) Location / / Volume Laterality Swab (Source THROAT SWAB / Non-blood 03/17/2021 1:15 PM 03/17/20 2:33 Required) Unknown Collection / CDT PM CDT Unknown Justyna Botello DO LAB_1 Performing Organization Address [facility]/ZIP Code Phon e Number [facility] [address] [place] [address] 2018 Novel Coronavirus (COVID-19) - Collect in Clinic Today (03/17/2021 1:15 PM CDT) [facility] Incentive Method Time Signature COVID-19 Not Not 03/18/2021 [facility] Interpretation Detected Detected 3:57 AM CENTRAL LAB CDT Source Nares, left 03/18/2021 [facility] and right 3:57 AM CENTRAL LAB CDT Specimen Anatomical Collection Method Collection Time Receive d Time (Source) Location / / Volume Laterality Swab (Source ENTIRE ANTERIOR Non-blood 03/17/2021 1:15 PM 2020 2:33 Required) NARIS / Unknown Collection / CDT PM CDT Unknown Narrative [facility] CENTRAL LAB - 03/18/2021 3:57 AM CDT Test performed by [facility] Agent Mediated Amplification. TMA has been shown to be equivalent to commercial real-time PCR t ests. This test has been authorized by the FDA under an Emergency Use Authorization (EUA) for use by authorized laboratories. Migel BROWN LAB_1 Performing Organization Address City/[facility]/ZIP Code Phon e Number [facility] [address] [address] documented in this encounter Visit Diagnoses Diagnosis Viral URI - Primary Acute upper respiratory infections of un specified site Fever, unspecified fever cause History of asthma Personal history of other diseases of re spiratory system Close exposure to COVID-19 virus documented in this encounter Additional Health Concerns Infection Onset Date Last Indicated Resolved Time R/O COVID19 03/17/2021 03/17/2021 03/18/2021 3:57 AM CDT documented as of this encounter Care Teams Cancer Program Consultant Relationship Specialty Start Date End Date Needs Pcp, Assignment PCP - General 08/11/20 [place] [address] documented as of this encounter
--- OUTSIDE RECORDS SUMMARY | 2022-05-22 13:29 | XMS_ITS | Clinical Summary ---
:1995 Author Organization [facility] Address [address] [place] [id number] Care Team Providers Name Role Phone [facility] Primary Care Provider [phone] Allergies No known active allergies Medications Medication Sig Dispensed Refills Start Date End Date Status HYDROcodone-acetaminop Take 1 tablet by 15 tablet 0 11/27/2018 Active hen (NORCO) 5-325 MG mouth every 6 tablet hours as needed for severe pain Social History Tobacco Use Types Packs/Day Years Used Date Smoking Tobacco: Never Assessed Sex Assigned at Date Recorded Not on file Last Filed Vital Signs Vital Sign Reading Time Taken Comments Blood Pressure 121/42 08/02/2020 6:15 PM [employer]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 Pulse 60 08/02/2020 6:15 PM [employer]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 Temperature 36.7 ??C (98.1 ??F) 08/02/2020 2:27 PM 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 Respiratory Rate 20 08/02/2020 2:27 PM [employer]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 Oxygen Saturation 97% 08/02/2020 6:45 PM [employer]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 Inhaled Oxygen Concentration - - Weight 96.2 kg (212 lb) 08/02/2020 2:27 PM [employer]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 Height 175.3 cm (5' 9) 08/02/2020 2:27 PM [employer]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 Body Mass Index 31.31 08/02/2020 2:27 PM [employer]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 Plan of Treatment Health Maintenance Due Date Last Done Comments ADVANCE CARE PLANNING 1995 ANNUAL REVIEW OF HM ORDERS 1993 YEARLY PREVENTIVE VISIT 1993 COVID-19 Vaccine (#1) 04/09/1994 HIV SCREENING 2008 HEPATITIS C SCREENING 10/08/2011 HEPATITIS B IMMUNIZATION (2 01/14/2013 12/17/2012 of 3 - Hep B Twinrix 3-dose series) PHQ-2 (once per calendar 06/09/2021 year) INFLUENZA VACCINE (#1) 2022 03/18/2013, 02/12/2012, 04/15/2008 DTAP/TDAP/TD IMMUNIZATION (3 02/11/2022 02/12/2012, - Td or Tdap) 01/15/2005 MENINGITIS IMMUNIZATION Completed 02/12/2012, 01/21/2011 Pneumococcal Vaccine: Aged Out 02/12/2012, No longer eligible based Pediatrics (0 to 5 Years) and 02/12/2012 on patient's age to At-Risk Patients (6 to 64 comple te this topic Years) IPV IMMUNIZATION Aged Out 11/20/2013 No longer eligi ble based on patient's age to complete [facility] to [facility] Insurance Payer Benefit Plan / Subscriber ID Effective Phone Address T ype Group Dates WORK COMP [facility] [id number] 2018-Pr [phone] esent [phone] [place] [address] [facility] [id number] 2020-Pre [phone] [address] HMO PEAK sent [phone] [place] [address] [facility] CCN [id number] 2020-Pr [phone] [address] Indemnity esent [phone] [place] [address] Nilton Moya Worker's Self 1995 [phone] Compensation [address] (Home[address] none (Work) [place] [address] Nilton Moya Other Self 1995 [phone] [place] [address] Care Teams Clam Grader Relationship Specialty Start Date End Date Center, [facility] PCP - General 06/29/20 [place] [address]
--- OUTSIDE RECORDS SUMMARY | 2022-05-22 13:29 | XMS_ITS | Encounter Summary ---
:1995 Author Organization [facility] Address [address] [place] [id number] Care Team Providers Name Role Phone Gil Meeks Primary Care Provider Reason for Visit Reason Comments Laceration Encounter Details Date Type Department Care Team Description 11/27/2018 [facility] Akira Gunn Lac eration of right index finger without foreign body without damage to nail, initial encounter; [facility] azucena Johnson MD Closed nondisplaced fracture of distal p halanx of right thumb, initial encounter [address] [facility] [id number] [facility] [address] [place] [phone] (Wo rk) Social History Tobacco Use Types Packs/Day Years Used Date Smoking Tobacco: Never Assessed Sex Assigned at Date Recorded Not on file documented as of this encounter Last Filed Vital Signs Vital Sign Reading Time Taken Comments Blood Pressure 138/79 11/27/2018 10:00 PM CDT Pulse 71 11/27/2018 9:24 PM CDT Temperature 36.9 ??C (98.4 ??F) 11/27/2018 6:16 PM CDT Respiratory Rate 20 11/27/2018 6:16 PM CDT Oxygen Saturation 98% 11/27/2018 9:24 PM CDT Inhaled Oxygen Concentration - - Weight - - Height - - Body Mass Index - - documented in this encounter Discharge Instructions Discharge InstructionsAkira Gunn MD - 11/27/2018 9:17 PM CDT Discharge Instructions Splint Care You had a splint put on today to help protect your injury and help it heal. Splints are used to treat things like strains, sprains, cuts and fractures (broken bones). Be sure your splint is not too tight! If you splint is too tight, it may cause loss of blood supply.Signs of your splint being too tight include: your arm or leg hurting a lot more; your fingers or toes getting numb, cold, pale or blue; or your child is crying, fussing or seeming restless. Return to the Emergency Department right away if: You have increased pain or pressure around the injury. You have numbness, tingling, or cool, pale, or blue toes or fingers past the injury. Your child is more fussy than normal, crying a lot, or restless. Your splint becomes soft, breaks, or is wet. Your splint begins to smell bad. Your splint is cutting into your skin. Home care: Keep the injured area above the level of your heart while laying or sitting down. This will help decrease the swelling and the pain. Keep the splint dry. Do not put objects down or inside the splint. If there is an elastic bandage (Stoney?? wrap) holding the splint on this may be loosened slightly to relieve pressure or pain. If pain continues return to the Emergency Department right away. Do not remove your splint by yourself unless told to by your doctor. Follow-up: Sometimes the splint put on in the Emergency Department needs to be changed once the swelling has gone down and a more permanent cast needs to be placed. This is usually done by a bone specialist doctor (Orthopedist). Follow the instructions given to you by your doctor today. X-rays: X-rays done today were read by your doctor but will also be read by a radiologist. We will contact you if the radiologist sees anything different on the x-ray. Your regular doctor may also wantto review your x-rays on follow-up. You could have a fracture (break), even if we told you your x-rays were normal. X-rays are not always certain, and some fractures are hard to see and may not show up right away. Also, your x-ray may look like you have a fracture, even though you do not. It is important to follow-up with your regular doctor. If you were given a prescription for medicine here today, be sure to read all of the information (including the package insert) that comes with your prescription. This will include important information about the medicine, its side effects, and any warnings that you need to know about. The pharmacist who fills the prescription can provide more information and answer questions you may have about the medicine. If you have questions or concerns that the pharmacist cannot address, please call or return to the Emergency Department. Opioid Medication Information Pain medications are among the most commonly prescribed medicines, so we are including this information for all our patients. If you did not receive pain medication or get a prescription for pain medicine, you can ignore it. You may have been given a prescription for an opioid (narcotic) pain medicine and/or have received apain medicine while here in the Emergency Department. These medicines can make you drowsy or impaired. You must not drive, operate dangerous equipment, or engage in any other dangerous activities whiletaking these medications. If you drive while taking these medications, you could be arrested for DUI, or driving under the influence. Do not drink any alcohol while you are taking these medications. Opioid pain medications can cause addiction. If you have a history of chemical dependency of any type, you are at a higher risk of becoming addicted to pain medications. Only take these prescribed medications to treat your pain when all other options have been tried. Take it for as short a time and asfew doses as possible. Store your pain pills in a secure place, as they are frequently stolen and provide a dangerous opportunity for children or visitors in your house to start abusing these powerful medications. We will not replace any lost or stolen medicine. As soon as your pain is better, you should flush all your remaining medication. Many prescription pain medications contain Tylenol?? (acetaminophen), including Vicodin??, Tylenol #3??, [place]??, Lortab??, and Percocet??. You should not take any extra pills of Tylenol?? if you are using these prescription medications or you can get very sick. Do not ever take more than 3000 mg of acetaminophen in any 24 hour period. All opioids tend to cause constipation. Drink plenty of water and eat foods that have a lot of fiber, such as fruits, vegetables, prune juice, apple juice and high fiber cereal. Take a laxative if you don???t move your bowels at least every other day. Miralax??, Milk of Magnesia, Colace??, or Senna?? can be used to keep you regular. Remember that you can always come back to the Emergency Department if you are not able to see your regular doctor in the amount of time listed above, if you get any new symptoms, or if there is anything that worries you. documented in this encounter Medications at Time of Discharge Medication Sig Dispensed Refills Start Date End Date HYDROcodone-acetaminophen Take 1 tablet by 15 tablet 0 11/08 (NORCO) 5-325 MG tablet mouth every 6 hours as needed for severe pain documented as of this encounter ED Notes Valerie Mathis - 11/27/2018 6:18 PM CDT Patient presents with laceration to right hand, thumb and pointer finger after cutting it on a tablesaw about 30 minutes [employer] ROOM HEL[employer]. Bleeding controlled. Tetanus UTD. ABCDs intact, alert and oriented x 4. Akira Gunn MD - 11/27/2018 6:07 PM CDT History Chief Complaint: Right hand lacerations ?? HPI Nilton Moya is a 23 year old male who presents with right hand lacerations. The patient states he was cutting wood with his table saw when the wood hit his chest and his right hand made contact with the table saw. The patient states the wood kicked back and hit him in the chest with minimal pain Andthen he noticed lacerations on his right thumb and right index finger. 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 ?? Allergies: No known drug allergies ?? Medications: The patient is not currently taking any prescribed medications. ?? Past Medical History: History reviewed. No pertinent past medical history. ?? Past Surgical History: Adenoidectomy ?? Family History: History reviewed. No pertinent family history. ?? Social History: Smoking status: Former Alcohol use: Yes The patient presents to the emergency department by himself. Marital Status: Single [1] ?? Review of Systems Cardiovascular: Positive for chest pain. Skin: Positive for wound. All other systems reviewed and are negative. ?? Physical Exam Patient Vitals for the past 24 hrs: BP Temp Temp src Pulse Heart Rate Resp SpO2 11/27/182199 138/79 -- -- -- -- -- -- 11/27/182129 124/54 -- -- -- -- -- -- 11/27/182123 -- -- -- 71 -- -- 98 % 11/27/182119 124/54 -- -- -- -- -- -- 11/27/18 1816 153/80 98.4 ??F (36.9 ??C) Oral -- 70 20 98 % Physical Exam General: No respiratory distress. ?? Cardiovascular: Good cap refill. ?? Respiratory: Breathing non labored. ?? Musculoskeletal: Tenderness in right thumb and right index finger. No bony deformity. Right hand: His right thumb at the base of the thumbnail, there is a subungual hematoma and dried blood on the medial lateral base of the nail along with a small laceration laterally along the thumbnail 2mm . On his lateral index finger middle phalanx, there's a laceration 0.2 cm. Right pectoral region had mild erythema and tenderness. ?? Skin: No rashes or petechiae. ?? Neurologic: non focal. ?? Psychiatric: Appropriate. Emergency Department Course Imaging: Radiographic findings were communicated with the patient who voiced understanding of the findings. ?? XR Hand Right G/E 3 Views IMPRESSION: Nondisplaced fracture is present through the distal phalanx of the thumb. No definite intra-articular extension. There is mild associated soft tissue swelling. No evidence of radiopaque foreign body. RICHELLE ADRIAN MD As read by Radiology. Interventions: 1934 Ibuprofen 400 mg PO ?? Emergency Department Course: Past medical records, nursing notes, and vitals reviewed. 1929: I performed an exam of the patient and obtained history, as documented above. 2023: I rechecked the patient. Explained findings to patient. 2116: I rechecked the patient. Findings and plan explained to the Patient. Patient discharged home with instructions regarding supportive care, medications, and reasons to return. The importance of close follow-up was reviewed. Impression & Plan Medical Decision Making: Nilton Moya is a 23 year old male who said he was using a table saw to cut wood when the wood kicked back and hit him in the chest, but there was no signs of chest wall injury. He did have lacerationto his right index finger and bleeding around the nail of the right thumb. I did order an x-ray and there was a nondisplaced line fracture of the distal phalanx. I think there is a subungual hematoma that drained out of the lateral surface of the nail. There was a small laceration adjacent to that that was derma bonded as well as around the index finger as well. A splint was applied and was referred to ortho hand as an outpatient. I do not feel the nail needed to be removed or the nail trephanated. Diagnosis: ICD-10-CM 1. Laceration of right index finger without foreign body without damage to nail, initial encounter S61.210A 2. Closed nondisplaced fracture of distal phalanx of right thumb, initial encounter S62.524A Disposition: discharged to home with follow-up instructions. Discharge Medications: Started HYDROcodone-acetaminophen 5-325 MG tablet Commonly known as: NORCO 1 tablet, Oral, EVERY 6 HOURS PRN Liz Diaz 11/27/2018 [facility] EMERGENCY DEPARTMENT Scribe Disclosure: I, Liz Diaz, am serving as a scribe at 7:30 PM on 11/27/2018 to document services personally performed by Akira Gunn MD based on my observations and the provider's statements to me. Akira Gunn MD 11/28/18 1834 documented in this encounter Plan of Treatment Not on filedocumented as of this encounter Procedures Procedure Name Priority Date/Time Associated Diagnosis Comme nts XR HAND RIGHT G/E 3 STAT 11/27/2018 7:47 PM Re sults for this VIEWS CDT procedure are i n the results section. documented in this encounter Results XR Hand Right G/E 3 Views (11/27/2018 7:47 PM CDT) Anatomical Region Laterality Modality Hand, Wrist Right Digital Radiography Specimen (Source) Anatomical Location Collection Method / Collectio n Time Received Time / Laterality Volume Impressions 11/27/2018 8:08 PM CDT IMPRESSION: Nondisplaced fracture is present through the distal phalanx of the thumb. No definite intra- articular extension. There is mild associated soft tissue swelling. No evidence of radiopaque foreign body. RICHELLE ADRIAN MD Narrative 11/27/2018 8:08 PM CDT RIGHT HAND THREE OR MORE VIEWS ?? 11/27/2018 7:47 PM HISTORY: Laceration and pain, cut with t able saw. COMPARISON: None. Procedure Note Richelle Adrian MD - 11/27/2018F ormatting of this note might be different from the original. RIGHT HAND THREE OR MORE VIEWS 11/27/2018 7:47 PM HISTORY: Laceration and pain, cut with t able saw. COMPARISON: None. IMPRESSION: Nondisplaced fracture is pre sent through the distal phalanx of the thumb. No definite intra- articular extension. There is mild associated soft tissue swelling. No evidence of radiopaque foreign body. RICHELLE ADRIAN MD Akira Gunn MD IMG DIAGNOSTIC IMAGING ORDER CINDY documented in this encounter Visit Diagnoses Diagnosis Laceration of right index finger without foreign body without damage to nail, initial encounter Closed nondisplaced fracture of distal p halanx of right thumb, initial encounter documented in this encounter Administered Medications Inactive Administered Medications - up to 3 most recent administrations Medication Order MAR Action Action Date Dose Rate Site HYDROcodone-acetaminophen Given 11/27/2018 8:33 PM CDT 2 tablets (NORCO) 5-325 MG per tablet 2 tablet 2 tablet, Oral, ONCE, On Fri11/27/18 at 2030, For 1 dose, Maximum acetaminophen dose from all sources= 75 mg/kg/day not to exceed 4 grams ibuprofen (ADVIL/MOTRIN) tablet 400 mg Given 11/27/2018 7:35 PM CDT 400 mg 400 mg, Oral, ONCE, On Fri11/27/18 at 1930, For 1 dose oxyCODONE-acetaminophen (PERCOCET) 5-325 Given 11/27/2018 10 :04 PM CDT 1 tablet MG per tablet 1 tablet 1 tablet, Oral, ONCE, On Fri11/27/18 at 2200, For 1 dose, Maximum acetaminophen dose from all sources= 75 mg/kg/day not to exceed 4 grams documented in this encounter Active and Recently Administered Medications Times are shown in CDT. Scheduled Medication Order 11/25/2018 11/26/2018 11/27/2018 HYDROcodone-acetaminophen (NORCO) 5-325 MG per tablet 2 tablet ( COMPLETED) 2032 (Given - Provider: Anabela Cee, RN) 2 tablet, Oral, ONCE, 11/27/18 at 203 1, For 1 dose, Maximum acetaminophen dose from all sources= 75 mg/kg/day not to exceed 4 grams ibuprofen (ADVIL/MOTRIN) tablet 400 mg (COMPLETED) 1934 (Given - Provider: Anabela Cee RN) 400 mg, Oral, ONCE, 11/27/18 at 1930, For 1 dose oxyCODONE-acetaminophen (PERCOCET) 5-325 MG per tablet 1 tablet (COMPLETED) 2203 (Given - Provider: Zachary Nieto RN) 1 tablet, Oral, ONCE, 11/27/18 at 220 0, For 1 dose, Maximum acetaminophen dose from all sources= 75 mg/kg/day not to exceed 4 grams documented in this encounter Care Teams Supervisor [employer] Relationship Specialty Start Date End Date Gil Meeks PCP - General Family Practice 11/27/18 06/28/20 documented as of this encounter
--- OUTSIDE RECORDS SUMMARY | 2022-05-22 13:29 | XMS_ITS | Encounter Summary ---
:1995 Author Organization [place] Address [address] [place] [id number] Care Team Providers Name Role Phone [facility] Primary Care Provider [phone] Reason for Visit Reason Comments Chest Pain Encounter Details Date Type Department Care Team Description [facility] [address] [place] [address] Chest pain Emergency Dept Pedro Lyons PA-C [facility] [address] [place], [place] [id number] [address] [place] [address] Social History Tobacco Use Types Packs/Day Years Used Date Smoking Tobacco: Never Assessed Sex Assigned at Date Recorded Not on file COVID-19 Exposure Response Date Recorded In the last month, have you been in contact with No / Unsure 06/29/2020 2:13 PM TELETYPE TELEGRAPHER someone who was confirmed or suspected to have Coronavirus / COVID-19? documented as of this encounter Last Filed Vital Signs Vital Sign Reading Time Taken Comments Blood Pressure 122/80 06/29/2020 7:06 PM TELETYPE TELEGRAPHER Pulse 71 06/29/2020 7:06 PM TELETYPE TELEGRAPHER Temperature 36.8 ??C (98.2 ??F) 06/29/2020 7:06 PM TELETYPE TELEGRAPHER Respiratory Rate 18 06/29/2020 7:06 PM TELETYPE TELEGRAPHER Oxygen Saturation 98% 06/29/2020 7:06 PM TELETYPE TELEGRAPHER Inhaled Oxygen Concentration - - Weight 93.4 kg (206 lb) 06/29/2020 2:25 PM TELETYPE TELEGRAPHER Height 175.3 cm (5' 9) 06/29/2020 2:25 PM TELETYPE TELEGRAPHER Body Mass Index 30.42 06/29/2020 2:25 PM TELETYPE TELEGRAPHER documented in this encounter Discharge Instructions Discharge InstructionsPedro Lyons PA-C - 06/29/2020 6:40 PM CST Discharge Instructions Chest Pain You have been seen today for chest pain or discomfort. At this time, your provider has found no signs that your chest pain is due to a serious or life- threatening condition, (or you have declined more testing and/or admission to the hospital). However, sometimes there is a serious problem that does not show up right away. Your evaluation today may not be complete and you may need further testing and evaluation. Generally, every Emergency Department visit should have a follow-up clinic visit with either a primary or a specialty clinic/provider. Please follow-up as instructed by your emergency provider today. Return to the Emergency Department if: Your chest pain changes, gets worse, starts to happen more often, or comes with less activity. You are newly short of breath. You get very weak or tired. You pass out or faint. You have any new symptoms, like fever, cough, numb legs, or you cough up blood. You have anything else that worries you. Until you follow-up with your regular provider, please do the following: Take one aspirin daily unless you have an allergy or are told not to by your provider. If a stress test appointment has been made, go to the appointment. If you have questions, contact your regular provider. Follow-up with your regular provider/clinic as directed; this is very important. If you were given a prescription for [...] call or return to the Emergency Department. Remember that you can always come back to the Emergency Department if you are not able to see your regular provider in the amount of time listed above, if you get any new symptoms, or if there is anything that worries you. TYPE TELEGRAPHER documented in this encounter Medications at Time of Discharge Medication Sig Dispensed Refills Start Date End Date HYDROcodone-acetaminophen Take 1 tablet by 15 tablet 0 /06/2018 (NORCO) 5-325 MG tablet mouth every 6 hours as needed for severe pain documented as of this encounter ED Notes Hood Rosas RN - 06/29/2020 7:06 PM CST Patient alert and oriented. Respirations even and unlabored. All discharge education given. All questions answered. All medications explained in detail. Patient denies further needs and states that they are ready to leave. Patient ambulated out of the ER with steady gait. TYPE TELEGRAPHER Tamera Lopes RN - 06/29/2020 2:24 PM CST Patient comes in for evaluation of chest pain which started yesterday while patient was driving to work. Patient notes he has had a constant ache since then but sometimes has waves of sharp stabbing pain. Pain is located in the epigastric area, gets short of breath with stabbing sensation. ABCs intact. TYPE TELEGRAPHER Pedro Lyons PA-C - 06/29/2020 2:12 PM CST History Chief Complaint: Chest Pain HPI Nilton Moya is a 24 year old male who presents with chest pain. The patient has chest pain in his mid sternum that started at 0900 [address] to work. The pain is intermittent, when it is present it is stabbing, and lasts for a few hours. The pain worsens with deep breathing and flared today when he was sanding a cabinet. He also has associated shortness of breath. Currently he rates his pain a 4/10. He has not taken any pain medications. 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 There is no history of blood clots, recent surgeries, and he does not take any hormones. He has no known heart history. He does not use tobacco. He denies abdominal pain, congestion, runny nose, fever, chills, cough, nausea, vomiting, diarrhea, or lower extremity swelling. Review of Systems Constitutional: Negative for chills and fever. HENT: Negative for congestion and rhinorrhea. Respiratory: Positive for shortness of breath. Negative for cough. Cardiovascular: Positive for chest pain. Negative for leg swelling. Gastrointestinal: Negative for abdominal pain, diarrhea, nausea and vomiting. All other systems reviewed and are negative. Allergies: Dust mites Pollen extracts Medications: Fluoxetine Past Medical History: Varicella Pneumonia Left varicocele Past Surgical History: Adenoidectomy Family History: Anxiety Social History: Patient presents alone. Employed. The patient denies tobacco use. Physical Exam Patient Vitals for the past 24 hrs: BP Temp Temp src Pulse Resp SpO2 Height Weight 06/29/20 1425 126/84 97.8 ??F (36.6 ??C) Temporal 75 18 99 % 1.753 m (5' 9) 93.4 kg (206 lb) Physical Exam Constitutional: Pleasant. Cooperative. Eyes: Pupils equally round and reactive HENT: Head is normal in appearance. Oropharynx is normal with moist mucus membranes. Cardiovascular: Regular rate and rhythm and without murmurs. Respiratory: Normal respiratory effort, lungs are clear bilaterally. GI: Abdomen is soft, non-tender, non-distended. No guarding, rebound, or rigidity. Musculoskeletal: No asymmetry of the lower extremities, no tenderness to palpation. Skin: Normal, without rash. Neurologic: Cranial nerves grossly intact, normal cognition, no focal deficits. Alert and oriented x3. Psychiatric: Normal affect. Nursing notes and vital signs reviewed. Emergency Department Course ECG: @ 1435 Indication: chest pain Vent. Rate 68 bpm. TX interval 142 ms. QRS duration 98 ms. QT/QTc 370/393 ms. P-R-T axis 74 74 53. Normal sinus rhythm. Normal ECG. Read @ [address] Panchal. Imaging: Chest XR Port 1 View: IMPRESSION: Negative chest. Reading per radiology. Laboratory: CBC: WBC 6.8, HGB 17.1, PLT 246 BMP: Calcium: 8.4 (L) o/w WNL (Creatinine 1.19) 1537 Troponin I: <0.015 Lipase: 136 Hepatic panel: Bili Direct 0.1, Bili Total 0.5, Albumin 4.0, Protein Total 7.6, Alkphos 76, ALT 36, AST 33. Emergency Department Course: Reviewed: I reviewed the patient's nursing notes, vitals, past medical records, Care Everywhere. PERC Rule for risk stratifying PE to low risk (calculator) Background Risk stratifies patients to low risk of PE if all 8 criteria are present including age <50, heartrate <100, O2 Sat >94%, no unilateral leg edema, no hemoptysis, no recent surgery or trauma, no prior VTE, and no hormone use. Data 24 year old does not have a problem list on file. @cmedp@ has no past surgical history on file. Pulse: 75 SpO2: 99 % Criteria Of 8 possible items (all criteria must be present): Age <50 years Heart rate <100 bpm Oxygen Saturation >94% No unilateral leg swelling No hemoptysis No surgery or trauma within 4 weeks No prior DVT or PE No hormone use (oral, transdermal and intravaginal estrogens) Interpretation All eight criteria are met AND low clinical PE suspicion: No further evaluation for PE required Assessments: 1608 I performed an exam of the patient as documented above. 1730 I rechecked and updated the patient. 1850 I rechecked and updated the patient. Interventions: 1623 Ibuprofen 600 mg tablet PO 1623 GI cocktail 30 mL PO Disposition: The patient was discharged to home. Impression & Plan Medical Decision Making: Nilton Moya is a 24 year old male who presents to the ED for evaluation of chest pain. Pain has been present since 0900 yesterday. Pain is pleuritic. See HPI as above for additional details. Vitalsand physical exam as above. Differential is broad include ACS, dissection, PE, pneumothorax, GERD, MSK, pneumonia, among others. Work-up as above. Discussed with patient the unclear etiology of his symptoms at this time. Patient is PERC negative. Troponin is negative, despite 6+ hours of symptoms. Chest x-ray is reassuring. GI cocktail without any improvement of symptoms. As pain was to the low rightsternum, GI labs obtained as above and were reassuring. Suspect MSK etiology at this time. [place] patient was safe for discharge home. Tylenol and ibuprofen for pain. Advise close follow-up with PCP. Discussed reasons to return. All questions answered. Patient discharged to home in stable condition. Diagnosis: ICD-10-CM 1. Chest pain R07.9 Discharge Medications: New Prescriptions No medications on file Scribe Disclosure: I, Urvashi Polanco, am serving as a scribe at 4:03 PM on 06/29/2020 to document services personally performed by Pedro Lyons PA-C based on my observations and the provider's statements to me. This record was created at least in part using electronic voice recognition software, so please excuse any typographical errors. Pedro Lyons PA-C 06/29/202036 TYPE TELEGRAPHER documented in this encounter Plan of Treatment Not on filedocumented as of this encounter Procedures Procedure Name Priority Date/Time Associated Comments Diagnosis XR CHEST PORT 1 VIEW STAT 06/29/2020 5:30 PM R esults for this TELETYPE TELEGRAPHER procedure are i n the results section. CBC WITH PLATELETS & STAT 06/29/2020 3:37 PM R esults for this DIFFERENTIAL TELETYPE TELEGRAPHER procedure are i n the results section. TROPONIN I Routine 06/29/2020 3:37 PM Results f or this TELETYPE TELEGRAPHER procedure are i n the results section. LIPASE Routine 06/29/2020 3:37 PM Results f or this TELETYPE TELEGRAPHER procedure are i n the results section. HEPATIC FUNCTION Routine 06/29/2020 3:37 PM Resul ts for this PANEL TELETYPE TELEGRAPHER procedure are i n the results section. BASIC METABOLIC PANEL STAT 06/29/2020 3:37 PM Results for this TELETYPE TELEGRAPHER procedure are i n the results section. EKG 12-LEAD, TRACING STAT 06/29/2020 2:35 PM R esults for this ONLY TELETYPE TELEGRAPHER procedure are i n the results section. documented in this encounter Results XR Chest Port 1 View (06/29/2020 5:30 PM TELETYPE TELEGRAPHER) Anatomical Region Laterality Modality Chest Digital Radiography Specimen (Source) Anatomical Collection Method Collection Time Re ceived Time Location / / Volume Laterality 06/29/2020 5:14 PM TELETYPE TELEGRAPHER Impressions 06/29/2020 5:33 PM TELETYPE TELEGRAPHER IMPRESSION: Negative chest. Narrative 06/29/2020 5:33 PM TELETYPE TELEGRAPHER EXAM: XR CHEST PORT 1 VW LOCATION: [facility] DATE/TIME: 06/29/2020 5:14 PM INDICATION: Chest pain and dyspnea COMPARISON: None. Procedure Note Dayne Fairbanks MD - 06/29/2020Formatthemal g of this note might be different from the original. EXAM: XR CHEST PORT 1 VW LOCATION: [facility] DATE/TIME: 06/29/2020 5:14 PM INDICATION: Chest pain and dyspnea COMPARISON: None. IMPRESSION: Negative chest. Pedro Lyons PA-C IMG DIAGNOSTIC IMAGING ORDER CINDY Lipase (06/29/2020 3:37 PM TELETYPE TELEGRAPHER) athologist Signature Lipase 136 73 - 393 06/29/[address] [facility] U/L 6:37 PM [email or web address] Specimen Anatomical Collection Method Collection Time Receive d Time (Source) Location / / Volume Laterality 06/29/2020 3:37 PM 3:46 TELETYPE TELEGRAPHER PM TELETYPE TELEGRAPHER Moise Pope DISTRIBUTION DISPATCHER TAILER OFF LAB - BLOOD ORDERABLES Performing Organization Address City/State/ZIP Code Phon e Number [place] [address] [phone] [facility] [address] [phone] Hepatic panel (06/29/2020 3:37 PM TELETYPE TELEGRAPHER) athologist Signature Bilirubin 0.1 0.0 - 0.2 06/29/2020 [place] Direct mg/dL 6:37 PM [facility] Comment: Effective 01/05/2014 all values are a sum mation of both the conjugated and delta bilirubin fractions. Bilirubin Total 0.5 0.2 - 1.3 mg/dL 06/29/2020 6:37 PM [facility] Albumin 4.0 3.4 - 5.0 g/dL 06/29/2020 6:37 PM [facility] Protein Total 7.6 6.8 - 8.8 g/dL 06/29/2020 6:37 PM [facility] Alkaline Phosphatase 76 40 - 150 U/L 06/29/2020 6:37 PM [facility] ALT 36 0 - 70 U/L 06/29/2020 6:37 PM [facility] AST 33 0 - 45 U/L 06/29/2020 6:37 PM [facility] Specimen Anatomical Collection Method Collection Time Receive d Time (Source) Location / / Volume Laterality 06/29/2020 3:37 PM 1 3:46 TELETYPE TELEGRAPHER PM TELETYPE TELEGRAPHER Moise Pope APRN, CNP LAB - BLOOD ORDERABLES Performing Organization Address [facility] e [facility] [address] [place], [place] [address] [place] [address] [address] [phone] 7, [facility] [phone] Troponin I (06/29/2020 3:37 PM TELETYPE TELEGRAPHER) athologist Signature Troponin I ES <0.015 0.000 - 06/29/2020 [place] 0.045 ug/L 6:20 PM [facility] Specimen Anatomical Collection Method Collection Time Receive d Time (Source) Location / / Volume Laterality 06/29/2020 3:37 PM 1 3:46 TELETYPE TELEGRAPHER PM TELETYPE TELEGRAPHER Moise Pope APRN, CNP LAB - BLOOD ORDERABLES Performing Organization Address [facility] [address] [place], [place] [address] [place] [address] [address] [place], [place] [address], [facility] [phone] (ABNORMAL) Basic metabolic panel (BMP) (06/29/2020 3:37 PM TELETYPE TELEGRAPHER) athologist Signature Sodium 137 133 - 144 06/29/2020 [facility]/L 5:51 PM [facility] Potassium 3.8 3.4 - 5.3 06/29/2020 [facility] mmol/L 5:51 PM [facility] Chloride 107 94 - 109 06/29/2020 [facility] mmol/L 5:51 PM [facility] Carbon Dioxide 27 20 - 32 06/29/2020 [place] mmol/L 5:51 PM [facility] Anion Gap 3 3 - 14 06/29/2020 [facility]/L 5:51 PM [facility] Glucose 84 70 - 99 06/29/2020 [place] mg/dL 5:51 PM [facility] Urea Nitrogen 10 7 - 30 06/29/2020 [place] mg/dL 5:51 PM [facility] Creatinine 1.19 0.66 - 06/29/2020 [facility] 1.25 mg/dL 5:51 PM [facility] GFR Estimate 83 >60 06/29/2020 [place] mL/min/{1. 5:[address] [facility] 73_m2} HOSPITAL Comment: Starting 05/26/2018, serum creatinine ba sed estimated GFR (eGFR) will be calculated using the Chronic Kidney Dise [facility] Epidemiology Collaboration (CKD-EPI) equation. GFR Estimate If 96 >60 mL/min/{1.73_m2} 06/29/2020 5: 51 PM [facility] Comment: Starting 05/26/2018, serum creatinine ba sed estimated GFR (eGFR) will be calculated using the Chronic Kidney Dise [facility] Epidemiology Collaboration (CKD-EPI) equation. Calcium 8.4 (L) 8.5 - 10.1 mg/dL 06/29/2020 5:51 PM [facility] Specimen Anatomical Collection Method Collection Time Receive d Time (Source) Location / / Volume Laterality Blood specimen 06/29/2020 3:37 PM 021 3:46 (specimen) TELETYPE TELEGRAPHER PM TELETYPE TELEGRAPHER Moise Pope DISTRIBUTION DISPATCHER TAILER OFF LAB - BLOOD ORDERABLES Performing Organization Address City/State/ZIP Code Phon e Number [place] [address] [address] [address] [place] [address] [phone] CBC + differential (06/29/2020 3:37 PM TELETYPE TELEGRAPHER) [facility] Method Time Signature WBC 6.8 4.0 - 06/29/2020 [facility] 11.0 3:[address] [facility] 10e9/L [facility] RBC Count 5.37 4.4 - 5.9 06/29/2020 [facility] 10e12/L 3:53 PM [facility] Hemoglobin 17.1 13.3 - 06/29/2020 [facility] 17.7 g/dL 3:53 PM [facility] Hematocrit 52.5 40.0 - 06/29/2020 [facility] 53.0 % 3:53 PM [facility] MCV 98 78 - 100 06/29/2020 [facility] fl 3:53 PM [facility] MCH 31.8 26.5 - 06/29/2020 [facility] 33.0 pg 3:53 PM [facility] MCHC 32.6 31.5 - 06/29/2020 [facility] 36.5 g/dL 3:53 PM [facility] RDW 12.7 10.0 - 06/29/2020 [facility] 15.0 % 3:53 PM [facility] Platelet Count 246 150 - 450 06/29/2020 [facility] 10e9/L 3:53 PM [facility] Diff Method Automated 06/29/2020 [facility] Method 3:53 PM [facility] % Neutrophils 53.6 % 06/29/2020 [facility] 3:53 PM [facility] % Lymphocytes 33.6 % 06/29/2020 [facility] 3:53 PM [facility] % Monocytes 8.9 % 06/29/2020 [facility] 3:53 PM [facility] % Eosinophils 2.5 % 06/29/2020 [facility] 3:53 PM [facility] % Basophils 0.7 % 06/29/2020 [facility] 3:53 PM [facility] % Immature 0.7 % 06/29/2020 [facility] Granulocytes 3:53 PM [facility] Nucleated RBCs 0 0 /100 06/29/2020 [facility] 3:53 PM [facility] Absolute 3.7 1.6 - 8.3 06/29/2020 [facility] Neutrophil 10e9/L 3:53 PM [facility] Absolute 2.3 0.8 - 5.3 06/29/2020 [facility] Lymphocytes 10e9/L 3:53 PM [facility] Absolute 0.6 0.0 - 1.3 06/29/2020 [facility] Monocytes 10e9/L 3:53 PM [facility] Absolute 0.2 0.0 - 0.7 06/29/2020 [facility] Eosinophils 10e9/L 3:53 PM [facility] Absolute 0.1 0.0 - 0.2 06/29/2020 [place] Basophils 10e9/L 3:53 PM [facility] Abs Immature 0.1 0 - 0.4 06/29/2020 [place] Granulocytes 10e9/L 3:53 PM [facility] Absolute 0.0 06/29/2020 [place] Nucleated RBC 3:53 PM [facility] Specimen Anatomical Collection Method Collection Time Receive d Time (Source) Location / / Volume Laterality Blood specimen 06/29/2020 3:37 PM 021 3:46 (specimen) TELETYPE TELEGRAPHER PM TELETYPE TELEGRAPHER Moise Pope APRN TAILER OFF LAB - BLOOD ORDERABLES Performing Organization Address City/[facility]/ZIP Code Phon e Number [place] [address] [address] [address] [place] [address] [phone] EKG 12-lead, tracing only (06/29/2020 2:35 PM TELETYPE TELEGRAPHER) [facility] gist Method Time Signature Interpretation ECG Click View RADIOLOGY Image link RESULTS to view waveform and result Specimen (Source) Anatomical Collection Method Collection Time Re ceived Time Location / / Volume Laterality 06/29/2020 2:35 PM TELETYPE TELEGRAPHER Moise Pope APRN TAILER OFF ECG ORDERABLES Performing Organization Address City/State/ZIP [facility] [place] RADIOLOGY RESULTS documented in this encounter Visit Diagnoses Diagnosis Chest pain Chest pain, unspecified documented in this encounter Administered Medications Inactive Administered Medications - up to 3 most recent administrations Medication Order MAR Action Action Date Dose Rate Site ibuprofen (ADVIL/MOTRIN) tablet Given 06/29/2020 4:23 PM TELETYPE TELEGRAPHER 600 mg 600 mg 600 mg, Oral, ONCE, On Linnea 06/29/20 at 1615, For 1 dose, Do not give within 6 hours of ketorolac (TORADOL). lidocaine (XYLOCAINE) 2 % 15 mL, alum & mag Given 06/29/2020 4:23 PM TELETYPE TELEGRAPHER 30 mLs hydroxide-simethicone (MAALOX) 15 mL GI Cocktail 30 mL, Oral, ONCE, On Linnea 06/29/20 at 1615, For 1 dose documented in this encounter Active and Recently Administered Medications Times are shown in TELETYPE TELEGRAPHER. Scheduled Medication Order 06/27/2020 06/28/2020 06/29/2020 ibuprofen (ADVIL/MOTRIN) tablet 600 mg (COMPLETED) 1623 (Given - Provider: Hood Rosas RN) 600 mg, Oral, ONCE, Linnea 06/29/20 at 1615, For 1 dose, Do not give within 6 hours of ketorolac (TORADOL). lidocaine (XYLOCAINE) 2 % 15 mL, alum & mag hydroxide-simethicone (MAALOX) 15 mL GI Cocktail (COMPLETED) 1623 (Given - Pr ovider: Hood Rosas RN) 30 mL, Oral, ONCE, Linnea 06/29/20 at 1615, For 1 dose documented in this encounter Care Teams Insurance Sales Specialist Relationship Specialty Start Date End Date [facility] PCP - General 06/29/20 [place] [address] documented as of this encounter
--- OUTSIDE RECORDS SUMMARY | 2022-05-22 13:29 | XMS_ITS | Clinical Summary ---
:1995 Author Organization [facility] Address [address], [place] [address] Care Team Providers Name Role Phone Needs Pcp, Assignment Primary Care Provider Source Comments You are receiving this document as you are listed as the primary care provider,follow-up provider, or the patient has been referred to you for consultation.This is in compliance with the Medicare and Medicaid EHR Incentive Program,which states Providers who transition their patient to another setting of careor provider of care or refers their patient to another provider of care shouldprovide summarycare record for each transition of care or referral. [facility] Allergies No known active allergies Medications Medication Sig Dispensed Refills Start Date End Date Status fluticasone propionate Place 2 Sprays 0 Active (FLONASE) 50 MCG/ACT into both nostrils nasal solution daily. cetirizine (ZYRTEC) 10 Take 10 mg by 0 Active MG tablet mouth daily. FLUoxetine (PROZAC) 40 Take 40 mg by 0 Active MG capsule mouth daily. OXYMETHOLONE OR 20 mg daily. 0 A ctive Testosterone Enanthate Pt takes 250 mg 0 Active 200 MG/ML SOLN twice a week drug not in computer trenbolone 0 Active ethenate magnesium oxide (AKA daily with 0 Active MAG-OX 400) 250 MG breakfast. tablet B Complex Vitamins (B 0 Active COMPLEX-B12 OR) drug not in computer Beet Root 0 Active ALBUterol sulfate HFA Inhale 1-2 Puffs 1 Each 0 03/17/2021 Active 108 (90 Base) MCG/ACT every 4 hours as inhaler needed for Wheezing. ondansetron Take 1 Tablet by 5 Tablet 0 03/17/2021 Active (ZOFRAN-ODT) 4 MG mouth every 8 disintegrating tablet hours as needed for Nausea. Active Problems No known active problems Social History Tobacco Use Types Packs/Day Years [...] CDT Inhaled Oxygen Concentration - - Weight 99.4 kg (219 lb 3.2 oz) 08/11/2020 8:50 AM INSPECTING AND TESTING LEAD HAND Height - - Body Mass Index - - Plan of Treatment Health Maintenance Due Date Last Done Comments HepB (1) 1995 COVID-19 Vaccine (#1) 04/09/1994 Adult Preventive Visit 10/08/2011 Influenza (#1) 2022 04/02/2019, 04/15/2008 DTaP/Tdap/Td (4 - Tdap) 02/11/2022 02/12/2012, 01/21/2011, 01/15/2005 Zoster/Shingles (1 of 2) 10/08/2043 MCV4 Completed 01/21/2011 Pneumococcal Aged Out 02/12/2012 No longer eligib le based on patient's age to complete this to the medical center HIV Screening (Preventive Completed 12/05/2020 Services) Hep C Screening (Preventive Completed 12/05/2020 Services) HPV Vaccine Aged Out No longer eligib le based on patient's age to complete this to pic HepA Aged Out No longer eligib le based on patient's age to complete this to pic Hib Aged Out No longer eligib le based on patient's age to complete this to pic IPV (Polio) Aged Out No longer eligib le based on patient's age to complete this to pic Insurance Payer Benefit Plan Subscriber ID Effective Phone Address Typ e / Group Dates [facility] [id number] 2020-Pre Co mmercial INSURED sent [facility] [id number] 2020-Pre [phone] [facility] [employer] sent [phone] [place] [address] Eduardo Moya Personal/Family Self [birth year]22[birth year]1967 [address] (Home) [place] [address] Care Teams Farm Contractor Buyer Relationship Specialty Start Date End Date Needs Pcp, Assignment PCP - General 08/11/20 [place] [address]
--- OUTSIDE RECORDS SUMMARY | 2022-05-22 13:29 | XMS_ITS | Encounter Summary ---
:1995 Author [facility] Address [address] [place] [address] Care Team Providers Name Role Phone Needs Pcp, Assignment Primary Care Provider Encounter Details Date Type Department Care Team Description 04/18/2021 nelda Lombardi [phone] Social History Tobacco Use Types Packs/Day Years Used Date Smoking Tobacco: Former Smokeless Tobacco: Never Sex Assigned at Date Recorded Not on file documented as of this encounter Progress Notes FAMILY MEDICINENELDA PROVIDER - 04/18/2021 3:29 AM CST nelda Treatment Plan Diagnosis Cold Sores Visit Date April 18, 2021 MARCOS MARTIN Date of : [birth year] Provider Antonietta Dubon, Nurse Practitioner Note From Provider Karri Callaway, Thank you for using [facility]. I have prescribed Valacyclovir and I have sent 5refills for future cold sore outbreaks. Be sure to keep one round of the medication on hand so you can take it at the very first sign of developing a cold sore. Taking your medication right away may help to decrease symptoms or shorten the outbreak. MOISÉS Mane Treatment Plan Great news! You're within 72 hours of the outbreak, so an antiviral medication can help shorten the duration of cold sores and decrease your pain. I sent a prescription to [facility] . I've also listed a few of the best ways to soothe your discomfort and some additional self-care tips to promote healing. If your symptoms don't improve after 7 days, or if you have questions, please use the Request a Call Back button and we'll adjust your treatment for free. Order(s) valacyclovir 1 gram tablet Take 2 tablet Oral twice a day for 1 day Note: Refills: 5 Sent To: [facility] [address] [id number] Treatment Plan Self Care Tip Topics You??e Contagious Pain Relief with Motrin Cold Compress Soothe The Sore What to Expect If you follow the recommendations I made on the Treatment tab, your symptoms should improve in about7 days. If your symptoms don't improve after 7 days, or if you have questions, please use the Request a Call Back button and we'll adjust your treatment for free. What to Watch Out For Give us a call immediately if you experience: ??? Vision changes ??? Severe headaches ??? Signs of the rash spreading to one or both eyes ??? White or yellow drainage ??? Fever ??? Increasing pain My Conditions, Orders, Allergies as of April 18, 2021 Standard condition list None Current orders valacyclovir (valacyclovir) Prozac Weekly (fluoxetine) Allergies None [facility] [employer] We are an online clinic open 30/12. If you have any questions or comments about this visit, please call or email [email or web address] OR ART DIRECTOR documented in this encounter Plan of Treatment Not on filedocumented as of this encounter Visit Diagnoses Not on filedocumented in this encounter Care Teams Solution Sales Senior Executive Relationship Specialty Start Date End Date Needs Pcp, Assignment PCP - General 08/11/20 [place] [address] documented as of this encounter
--- OUTSIDE RECORDS SUMMARY | 2022-05-22 13:29 | XMS_ITS | Encounter Summary ---
:1995 Author [facility] Address [address], [place] [address] Care Team Providers Name Role Phone Needs Pcp, Assignment Primary Care Provider Reason for Visit Reason Comments RESULTS, TEST echo Encounter Details Date Type Department Care Team Description 08/16/2020 Telephone Heart & Vascular Akira Segundo RE SULTS, TEST (echo) [facility] [address] [place] [address] [phone] (Wo rk) Social History Tobacco Use Types Packs/Day Years Used Date Smoking Tobacco: Former Smokeless Tobacco: Never Sex Assigned at Date Recorded Not on file documented as of this encounter Nursing Notes Ann Marie Smith, GREG - 08/16/2020 9:30 AM CST ----- Message from Akira Segundo MD sent at 08/16/2020 7:15 AM DISC PAD PLATE FILLER ----- I called [facility] and informed hum of the results. Dimitrios Larson ----- Message ----- From: Manoj Ford Results In Sent: 08/15/2020 3:01 PM DISC PAD PLATE FILLER To: Akira Segundo MD PAD PLATE FILLER documented in this encounter Plan of Treatment Not on filedocumented as of this encounter Visit Diagnoses Not on filedocumented in this encounter Care Teams Crook Operator Relationship Specialty Start Date End Date Needs Pcp, Assignment PCP - General 3/5/21 [place] [address] documented as of this encounter
--- OUTSIDE RECORDS SUMMARY | 2022-05-22 13:29 | XMS_ITS | Encounter Summary ---
:1995 Author Organization [facility] Address [address], [place] [address] Care Team Providers Name Role Phone Needs Pcp, Assignment Primary Care Provider Reason for Visit Procedure/Equipment (Routine) - Incomplete Specialty Diagnoses / Procedures Referred By Contact Refer red To Contact Diagnoses Keyona Arce MD Procedures XR Chest 2 Views [address] [place], [place] [address] Referral ID Status Reason Start Date Expiration Date Visits V isits Requested Authorized [id number] Incomplete 01/24/2021 04/25/2022 1 1 Encounter Details Date Type Department Care Team Description 01/24/2021 Ancillary Procedure Keyona Martinez MD [place] [address] [facility] Radiology [facility] [address] [place] [id number] [phone] Social History Tobacco Use Types Packs/Day Years Used Date Smoking Tobacco: Former Smokeless Tobacco: Never Sex Assigned at Date Recorded Not on file documented as of this encounter Plan of Treatment Not on filedocumented as of this encounter Procedures Procedure Name Priority Date/Time Associated Diagnosis Comme nts XR CHEST 2 VIEWS STAT 01/24/2021 12:40 PM Cough Resu lts for this CDT procedure are i n [...] or pleural effusion. Bony thorax is unremarkable. Keyona Gallegos MD RAD GD documented in this encounter Visit Diagnoses Diagnosis Cough documented in this encounter Additional Health Concerns Infection Onset Date Last Indicated Resolved Time R/O COVID19 01/24/2021 01/24/2021 01/25/2021 3:48 AM CDT documented as of this encounter Care Teams Dry Plasterer Relationship Specialty Start Date End Date Needs Pcp, Assignment PCP - General 08/11/20 [place], [place] [address] documented as of this encounter
--- OUTSIDE RECORDS SUMMARY | 2022-05-22 13:29 | XMS_ITS | Encounter Summary ---
:1995 Author Organization [facility] Address [address] [place] [id number] Care Team Providers Name Role Phone [facility] Primary Care Provider [phone] Reason for Visit Reason Comments Chest Pain Encounter Details Date Type Department Care Team Description 08/02/2020 Emergency [facility] Bowser MD [facility] [address] [place] [address] Chest pain, unspecified type; [facility] Emergency Dep t Akira Gunn MD [facility] [address] [place] [address] Other chest pain [address] [place] [phone] Social History Tobacco Use Types Packs/Day Years Used Date Smoking Tobacco: Never Assessed Sex Assigned at Date Recorded Not on file COVID-19 Exposure Response Date Recorded In the last month, have you been in contact with No / Unsure 08/02/2020 2:25 PM LEADERSHIP DEVELOPMENT MANAGER someone who was confirmed or suspected to have Coronavirus / COVID-19? documented as of this encounter Last Filed Vital Signs Vital Sign Reading Time Taken Comments Blood Pressure 121/42 08/02/2020 6:15 PM LEADERSHIP DEVELOPMENT MANAGER Pulse 60 08/02/2020 6:15 PM LEADERSHIP DEVELOPMENT MANAGER Temperature 36.7 ??C (98.1 ??F) 08/02/2020 2:27 PM LEADERSHIP DEVELOPMENT MANAGER Respiratory Rate 20 08/02/2020 2:27 PM LEADERSHIP DEVELOPMENT MANAGER Oxygen Saturation 97% 08/02/2020 6:45 PM LEADERSHIP DEVELOPMENT MANAGER Inhaled Oxygen Concentration - - Weight 96.2 kg (212 lb) 08/02/2020 2:27 PM LEADERSHIP DEVELOPMENT MANAGER Height 175.3 cm (5' 9) 08/02/2020 2:27 PM LEADERSHIP DEVELOPMENT MANAGER Body Mass Index 31.31 08/02/2020 2:27 PM LEADERSHIP DEVELOPMENT MANAGER documented in this encounter Discharge Instructions Discharge InstructionsAkira Gunn MD - 08/02/2020 6:55 PM LEADERSHIP DEVELOPMENT MANAGER Discharge Instructions Chest Pain You have been seen today for chest pain or discomfort. At this time, your doctor has found no signs that your chest pain is due to a serious or life-threatening condition, (or you have declined more testing and/or admission to the hospital). However, sometimes there is a serious problem that does not show up right away. Your evaluation today may not be complete and you may need further testing and evaluation. You need to follow-up with your regular doctor within 3 days. Return to the Emergency Department if: Your chest pain changes, gets worse, starts to happen more often, or comes with less activity. You are short of breath. You get very weak or tired. You pass out or faint. You have any new symptoms, like fever, cough, numb legs, or you cough up blood. You have anything else that worries you. Until you follow-up with your regular doctor please do the following: Take one aspirin daily unless you have an allergy or are told not to by your doctor. If a stress test appointment has been made, go to the appointment. If you have questions, contact your regular doctor. If your doctor today has told you to follow-up with your regular doctor, it is very important that you make an appointment with your clinic and go to the appointment. If you do not follow-up with your primary doctor, it may result in missing an important development which could result in permanent injury or disability and/or lasting pain. If there is any problem keeping your appointment, call your doctor or return to the Emergency Department. If you were given a prescription for [...] contain Tylenol?? (acetaminophen), including Vicodin??, Tylenol #3??, [place]??, Lortab??, and Percocet??. You should not take [...] if there is anything that worries you. ERSHIP DEVELOPMENT MANAGER documented in this encounter Medications at Time of Discharge Medication Sig Dispensed Refills Start Date End Date HYDROcodone-acetaminophen Take 1 tablet by 15 tablet 0 11/08 (NORCO) 5-325 MG tablet mouth every 6 hours as needed for severe pain documented as of this encounter ED Notes Valerie Moseley - 08/02/2020 7:15 PM CST Patient discharged to home. Patient received discharge instructions and has no other questions at this time. ERSHIP DEVELOPMENT MANAGER Akira Gunn MD - 08/02/2020 6:55 PM CST The patient was sent to me by Dr. Cameron. He has had a previous negative work- up for chest pain buttoday had an elevated D-dimer. His serial enzymes are negative his chest CT is negative as well. I discussed the differential diagnosis. He is having current pain I do stressed what symptoms should follow- up for and he was discharged home to close follow-up with his primary care doctor And follow-up in 2 to 3 days Gnosis chest pain Akira Gunn MD 08/02/201855 ERSHIP DEVELOPMENT MANAGER Kaetlynn Almaraz RN - 08/02/2020 2:26 PM CST Patient complaining of returning chest pain. States he also had numbness that radiated from his chest into his legs. ABCs intact. Alert and oriented x 4 ERSHIP DEVELOPMENT MANAGER Glenda Bowsre MD - 08/02/2020 2:14 PM CST History Chief Complaint: Chest Pain HPI Nilton Moya is a 24 year old male who presents for evaluation of chest pain. Per chart review the patient underwent chest pain workup one month ago which resulted negative. The patient states that earlier today he had sudden feeling of shortness of breath and chest heaviness that then lead to nausea and near syncopal sensation. He then stood up from his desk and had a tingling/chilled sensation run from his chest into his upper legs. Here, he states the chills and tingling have dissipated, but he is still unable to readily catch his breath. Last night he adds that he had a headache, fatigue, and diaphoresis. He denies any fevers, cough, or other infectious complaints. He does state that he exer cises, but has never had breathing difficulties or syncope while exercising. Review of Systems Constitutional: Negative for fever. Respiratory: Positive for shortness of breath. Negative for cough. Cardiovascular: Positive for chest pain. Neurological: Positive for syncope (neaR). All other systems reviewed and are negative. Allergies: No Known Allergies Medications: No medications Medical History: No medical history Family History: Reported history of clotting and cardiovascular disease. Social History: Patient presents with his father. PCP: [facility] Physical Exam Patient Vitals for the past 24 hrs: BP Temp Temp src Pulse Resp SpO2 Height Weight 08/02/20 1427 132/69 98.1 ??F (36.7 ??C) Temporal 83 20 100 % 1.753 m (5' 9) 96.2 kg (212 lb) Physical Exam Gen: alert HEENT: PERRL, oropharynx clear Neck: normal ROM CV: RRR, no murmurs, 2+ distal pulses in all 4 extremities Chest: no tenderness over the chest wall Pulm: breath sounds equal, lungs clear Abd: Soft, nontender Back: no evidence of injury MSK: no lower extremity edema, no calf tenderness Skin: no rash Neuro: alert, appropriate conversation and interaction Emergency Department Course ECG: ECG taken at 1442, ECG read at 1534 Normal sinus rhythm Normal ECG Rate 74 bpm. MD interval 152 ms. QRS duration 102 ms. QT/QTc 394/437 ms. P-R-T axes 72 70 52. Imaging: Chest XR, PA & LAT Final Result IMPRESSION: PA and lateral views of the chest. Lungs are clear. Heart is normal in size. No effusions are evident. No pneumothorax. FRANSICO MOCTEZUMA MD CT Chest Pulmonary Embolism w Contrast (Results Pending) Reading per radiology Laboratory: CBC: WBC 11.1 (H), HGB 16.5, PLT 212 BMP: Calcium 8.4 (L) o/w WNL (Creatinine 1.07) Troponin: (Collected 1552) <0.015 Troponin: pending D dimer: 0.6 (H) Emergency Department Course: Reviewed: I reviewed nursing notes, vitals and past medical history Assessments: 1530 I assessed the patient as above. 1634 Patient rechecked and updated. Patient feels better at this time. Disposition: Signed out to Dr. Gunn, pending CT. Impression & Plan Medical Decision Making: Nilton Moya is a 24 year old male who presents for an episode of chest pain. Similar episode onemonth ago without definite diganosis. Until today, no repeat events. Here EKG showed NSR and no signs of ischemia. Initial troponin was negative. No tachycardia or hypoxia and patient is PERC negative but reports a strong family hx of clotting disorder therefore ddimer was obtained. Ddimer was elevated therefore we will obtain CT chest to evaluate for pulmonary embolism. Given abdominal symptoms, dissection was considered. CT chest again pending but normal CXR without widening of the mediastinum, normal VS and intact pulses therefore clinical suspicion is low for this. No ongoing abdominal pain or t enderness on exam to suggest referred intraabdominal pathology. No fever or cough to suggest PNA andCXR clear. CXR showed no edema or PTX. Care transferred to Dr. Gunn pending repeat troponin and CT chest. Please see his note for final diagnosis dispo and plan. Disposition: Signed out to my partner Dr. Gunn. Scribe Disclosure: I, Thaddeus Gold, am serving as a scribe at 3:45 PM on 08/02/2020 to document services personally performed by Glenda Bowser MD based on my observations and the provider's statements to me. [facility] August 02, 2020 Glenda Bowser MD 08/02/20 1718 ERSHIP DEVELOPMENT MANAGER documented in this encounter Plan of Treatment Not on filedocumented as of this encounter Procedures Procedure Name Priority Date/Time Associated Diagnosis Comme nts TROPONIN I STAT 08/02/2020 6:15 PM Chest pain, Results f or this LEADERSHIP DEVELOPMENT MANAGER unspecified type procedure a re in the results section. CT CHEST PULMONARY STAT 08/02/2020 5:27 PM Res ults for this EMBOLISM W CONTRAST LEADERSHIP DEVELOPMENT MANAGER procedur e are in the results section. XR CHEST 2 VIEWS STAT 08/02/2020 4:07 PM Resul ts for this LEADERSHIP DEVELOPMENT MANAGER procedure are i n the results section. CBC WITH PLATELETS & STAT 08/02/2020 3:52 PM R esults for this DIFFERENTIAL LEADERSHIP DEVELOPMENT MANAGER procedure are i n the results section. TROPONIN I STAT 08/02/2020 3:52 PM Results f or this LEADERSHIP DEVELOPMENT MANAGER procedure are i n the results section. D DIMER QUANTITATIVE STAT 08/02/2020 3:52 PM R esults for this LEADERSHIP DEVELOPMENT MANAGER procedure are i n the results section. BASIC METABOLIC PANEL STAT 08/02/2020 3:52 PM Results for this LEADERSHIP DEVELOPMENT MANAGER procedure are i n the results section. EKG 12-LEAD, TRACING STAT 08/02/2020 2:42 PM R esults for this ONLY LEADERSHIP DEVELOPMENT MANAGER procedure are i n the results section. documented in this encounter Results Troponin I (08/02/2020 6:15 PM LEADERSHIP DEVELOPMENT MANAGER) athologist Signature Troponin I ES <0.015 0.000 - 08/02/2020 [place] 0.045 ug/L 6:38 PM [facility] Comment: The 99th percentile for upper reference range is 0.045 ug/L. ??Troponin values in the range of 0.045 - 0.120 ug/L may b e associated with risks of adverse clinical events. Specimen Anatomical Collection Method Collection Time Receive d Time (Source) Location / / Volume Laterality Blood specimen 08/02/2020 6:15 PM 021 6:17 (specimen) LEADERSHIP DEVELOPMENT MANAGER PM LEADERSHIP DEVELOPMENT MANAGER Glenda Bowser MD LAB - BLOOD ORDERABLES Performing Organization Address City/State/ZIP Code Phon e Number M [facility] [address], [place] [address] [facility] [address] [place], [place] [address] [place] [address] CT Chest Pulmonary Embolism w Contrast (08/02/2020 5:27 PM LEADERSHIP DEVELOPMENT MANAGER) Anatomical Region Laterality Modality Chest, SUBRAD CT BODY, UMP CT CHEST Comp uted Tomography Specimen (Source) Anatomical Collection Method Collection Time Re ceived Time Location / / Volume Laterality 08/02/2020 5:15 PM LEADERSHIP DEVELOPMENT MANAGER Impressions 08/02/2020 5:41 PM LEADERSHIP DEVELOPMENT MANAGER IMPRESSION: 1. ??No evidence for pulmonary embolism. Narrative 08/02/2020 5:41 PM LEADERSHIP DEVELOPMENT MANAGER EXAM: CT CHEST PULMONARY EMBOLISM W CONTRAST LOCATION: [facility] DATE/TIME: 08/02/2020 5:15 PM INDICATION: PE suspected, low/intermedia te prob, positive D-dimer COMPARISON: None. TECHNIQUE: CT chest pulmonary angiogram during arterial phase injection of IV contrast. Multiplanar reformats and MIP reconstructions were performed. Dose reduction techniques were used. CONTRAST: 70mL Isovue-370 FINDINGS: ANGIOGRAM CHEST: No evidence for pulmona ry embolism. Pulmonary arteries normal in caliber. Thoracic aorta normal in caliber. No aortic dissection or other acute abnormality. HEART: Cardiac chambers within normal li mits. No pericardial effusion. No coronary artery calcification. LUNGS AND PLEURA: No pulmonary mass, con solidation, or suspicious pulmonary nodule. No pleural effusion or pneumothorax. MEDIASTINUM: No adenopathy or mass. LIMITED UPPER ABDOMEN: Negative. MUSCULOSKELETAL: Negative. Procedure Note Austyn Villegas MD - 08/02/2020Formatt ing of this note might be different from the original. EXAM: CT CHEST PULMONARY EMBOLISM W CONT RAST LOCATION: [facility] DATE/TIME: 08/02/2020 5:15 PM INDICATION: PE suspected, low/intermedia te prob, positive D-dimer COMPARISON: None. TECHNIQUE: CT chest pulmonary angiogram during arterial phase injection of IV contrast. Multiplanar reformats and MIP reconstructions were performed. Dose reduction techniques were used. CONTRAST: 70mL Isovue-370 FINDINGS: ANGIOGRAM CHEST: No evidence for pulmona ry embolism. Pulmonary arteries normal in caliber. Thoracic aorta normal in caliber. No aortic dissection or other acute abnormality. HEART: Cardiac chambers within normal li mits. No pericardial effusion. No coronary artery calcification. LUNGS AND PLEURA: No pulmonary mass, con solidation, or suspicious pulmonary nodule. No pleural effusion or pneumothorax. MEDIASTINUM: No adenopathy or mass. LIMITED UPPER ABDOMEN: Negative. MUSCULOSKELETAL: Negative. IMPRESSION: 1. No evidence for pulmonary embolism. Glenda Bowser MD IMG CT ORDERABLES Chest XR, PA & LAT (08/02/2020 4:07 PM LEADERSHIP DEVELOPMENT MANAGER) Anatomical Region Laterality Modality Chest Digital Radiography Specimen (Source) Anatomical Location Collection Method / Collectio n Time Received Time / Laterality Volume Impressions 08/02/2020 4:23 PM LEADERSHIP DEVELOPMENT MANAGER IMPRESSION: PA and lateral views of the chest. Lungs are clear. Heart is normal in size. No effusions are evid ent. No pneumothorax. FRANSICO MOCTEZUMA MD Narrative 08/02/2020 4:23 PM LEADERSHIP DEVELOPMENT MANAGER CHEST TWO VIEW ?? 08/02/2020 4:07 PM HISTORY: Chest pain. COMPARISON: Chest x-ray 06/29/2020. Procedure Note Fransico Moctezuma MD - 08/02/2020Form atting of this note might be different from the original. CHEST TWO VIEW 08/02/2020 4:07 PM HISTORY: Chest pain. COMPARISON: Chest x-ray 06/29/2020. IMPRESSION: PA and lateral views of the chest. Lungs are clear. Heart is normal in size. No effusions are evid ent. No pneumothorax. FRANSICO MOCTEZUMA MD Glenda Bowser MD IMG DIAGNOSTIC IMAGING ORDERABLES (ABNORMAL) D dimer quantitative (08/02/2020 3:52 PM LEADERSHIP DEVELOPMENT MANAGER) athologist Signature D Dimer 0.6 (H) 0.0 - 0.50 08/02/2020 [place] ug/ml FEU 4:18 PM [facility] Comment: This D-dimer assay is intended for use i n conjunction with a clinical pretest probability assessment model to exclude pulmonary embolism (PE) and deep venous thrombosis (DVT) in outpatients s uspected of PE or DVT. The cut-off value is 0.5 ug/mL FEU. Specimen Anatomical Collection Method Collection Time Receive d Time (Source) Location / / Volume Laterality Blood specimen 08/02/2020 3:52 PM 021 4:00 (specimen) LEADERSHIP DEVELOPMENT MANAGER PM LEADERSHIP DEVELOPMENT MANAGER Glenda Bowser MD LAB - BLOOD ORDERABLES Performing Organization Address City/State/ZIP Code Phon e Number [facility] [address], [place] [address] [facility] [address], [place] [address] [address], [facility] [phone] Troponin I (08/02/2020 3:52 PM LEADERSHIP DEVELOPMENT MANAGER) athologist Signature Troponin I ES <0.015 0.000 - 08/02/2020 [place] 0.045 ug/L 4:22 PM [facility] Comment: The 99th percentile for upper reference range is 0.045 ug/L. ??Troponin values in the range of 0.045 - 0.120 ug/L may b e associated with risks of adverse clinical events. Specimen Anatomical Collection Method Collection Time Receive d Time (Source) Location / / Volume Laterality Blood specimen 08/02/2020 3:52 PM 021 4:00 (specimen) LEADERSHIP DEVELOPMENT MANAGER PM LEADERSHIP DEVELOPMENT MANAGER Glenda Bowser MD LAB - BLOOD ORDERABLES Performing Organization Address City/State/ZIP Code Phon e Number M [facility] [address], [place] [address] [facility] [address], [place] [address] [address], [facility] [phone] (ABNORMAL) Basic metabolic panel (08/02/2020 3:52 PM LEADERSHIP DEVELOPMENT MANAGER) athologist [facility] Sodium 138 133 - 144 08/02/2020 [place] mmol/L 4:12 PM [facility] Potassium 3.9 3.4 - 5.3 08/02/2020 [place] mmol/L 4:12 PM [facility] Chloride 107 94 - 109 08/02/2020 [place] mmol/L 4:12 PM [facility] Carbon Dioxide 26 20 - 32 08/02/2020 [place] mmol/L 4:20 PM [facility] Anion Gap 5 3 - 14 08/02/2020 [place] mmol/L 4:20 PM [facility] Glucose 98 70 - 99 08/02/2020 [place] mg/dL 4:20 PM [facility] Urea Nitrogen 13 7 - 30 08/02/2020 [place] mg/dL 4:20 PM LEADERSHIP DEVELOPMENT MANAGER [facility] Creatinine 1.07 0.66 - 08/02/2020 [facility] 1.25 mg/dL 4:20 PM [facility] GFR Estimate >90 >60 08/02/2020 [place] mL/min/{1. 4:20 PM [facility] 73_m2} HOSPITAL Comment: Non GFR Calc Starting 05/26/2018, serum creatinine ba sed estimated GFR (eGFR) will be calculated using the Chronic Kidney Dise [facility] Epidemiology Collaboration (CKD-EPI) equation. GFR Estimate If >90 >60 mL/min/{1.73_m2} 08/02/2020 4: 20 PM [facility] Comment: GFR Calc Starting 05/26/2018, serum creatinine ba sed estimated GFR (eGFR) will be calculated using the Chronic Kidney Dise [facility] Epidemiology Collaboration (CKD-EPI) equation. Calcium 8.4 (L) 8.5 - 10.1 mg/dL 08/02/2020 4:[address] [facility] Specimen Anatomical Collection Method Collection Time Receive d Time (Source) Location / / Volume Laterality Blood specimen 08/02/2020 3:52 PM 021 4:00 (specimen) LEADERSHIP DEVELOPMENT MANAGER PM LEADERSHIP DEVELOPMENT MANAGER Glenda Bowser MD LAB - BLOOD ORDERABLES Performing Organization Address City/State/ZIP Code Phon e Number [place] [address] [phone] (ABNORMAL) CBC + differential (08/02/2020 3:52 PM LEADERSHIP DEVELOPMENT MANAGER) [facility] Method Time Signature WBC 11.1 (H) 4.0 - 08/02/2020 [facility] 11.0 4:03 PM [facility] 10e9/L [facility] RBC Count 5.15 4.4 - 5.9 08/02/2020 [facility] 10e12/L 4:03 PM [facility] Hemoglobin 16.5 13.3 - 08/02/2020 [facility] 17.7 g/dL 4:03 PM [facility] Hematocrit 49.4 40.0 - 08/02/2020 [facility] 53.0 % 4:03 PM [facility] MCV 96 78 - 100 08/02/2020 [facility] fl 4:03 PM [facility] MCH 32.0 26.5 - 08/02/2020 [facility] 33.0 pg 4:03 PM [facility] MCHC 33.4 31.5 - 08/02/2020 [facility] 36.5 g/dL 4:03 PM [facility] RDW 12.6 10.0 - 08/02/2020 [facility] 15.0 % 4:03 PM [facility] Platelet Count 212 150 - 450 08/02/2020 [facility] 10e9/L 4:03 PM [facility] Diff Method Automated 08/02/2020 [facility] Method 4:03 PM [facility] % Neutrophils 70.9 % 08/02/2020 [facility] 4:03 PM [facility] % Lymphocytes 18.1 % 08/02/2020 [facility] 4:03 PM [facility] % Monocytes 6.4 % 08/02/2020 [facility] 4:03 PM [facility] % Eosinophils 3.8 % 08/02/2020 [facility] 4:03 PM [facility] % Basophils 0.4 % 08/02/2020 [facility] 4:03 PM [facility] % Immature 0.4 % 08/02/2020 [facility] Granulocytes 4:03 PM [facility] Nucleated RBCs 0 0 /100 08/02/2020 [facility] 4:03 PM [facility] Absolute 7.9 1.6 - 8.3 08/02/2020 [facility] Neutrophil 10e9/L 4:03 PM [facility] Absolute 2.0 0.8 - 5.3 08/02/2020 [facility] Lymphocytes 10e9/L 4:03 PM [facility] Absolute 0.7 0.0 - 1.3 08/02/2020 [facility] Monocytes 10e9/L 4:03 PM [facility] Absolute 0.4 0.0 - 0.7 08/02/2020 [facility] Eosinophils 10e9/L 4:03 PM [facility] Absolute 0.0 0.0 - 0.2 08/02/2020 [facility] Basophils 10e9/L 4:03 PM [facility] Abs Immature 0.0 0 - 0.4 08/02/2020 [facility] Granulocytes 10e9/L 4:03 PM [facility] Absolute 0.0 08/02/2020 [place] Nucleated RBC 4:03 PM [facility] Specimen Anatomical Collection Method Collection Time Receive d Time (Source) Location / / Volume Laterality Blood specimen 08/02/2020 3:52 PM 021 4:00 (specimen) LEADERSHIP DEVELOPMENT MANAGER PM LEADERSHIP DEVELOPMENT MANAGER Glenda Bowser MD LAB - BLOOD ORDERABLES Performing Organization Address City/[facility]/ZIP Code Phon e Number [place] [address] [address], [place] [address] [facility] [address] [phone] EKG 12 lead (08/02/2020 2:42 PM LEADERSHIP DEVELOPMENT MANAGER) [facility] gist Method Time Signature Interpretation ECG Click View RADIOLOGY Image link RESULTS to view waveform and result Specimen (Source) Anatomical Collection Method Collection Time Re ceived Time Location / / Volume Laterality 08/02/2020 2:42 PM LEADERSHIP DEVELOPMENT MANAGER Glenda Bowser MD ECG ORDERABLES Performing Organization Address City/State/ZIP [facility] [place] [place] Phon e Number RADIOLOGY RESULTS documented in this encounter Visit Diagnoses Diagnosis Chest pain, unspecified type documented in this encounter Administered Medications Inactive Administered Medications - up to 3 most recent administrations Medication Order MAR Action Action Date Dose Rate Site CT Saline Flush Given 08/02/2020 5:16 PM LEADERSHIP DEVELOPMENT MANAGER 88 mLs Intravenous, 100 mL, ONCE, On Fri08/02/20 at 1720, For 1 dose, This entry is for use by Radiology to intermittently used as a flush in patients receiving a CT scan. iopamidol (ISOVUE-370) solution 500 mL Given 08/02/2020 5:16 PM LEADERSHIP DEVELOPMENT MANAGER 70 mLs 500 mL, Intravenous, ONCE, On Fri08/02/20 at 1720, For 1 dose documented in this encounter Active and Recently Administered Medications Times are shown in LEADERSHIP DEVELOPMENT MANAGER. Scheduled Medication Order 07/31/2020 08/01/2020 08/02/2020 CT Saline Flush (COMPLETED) 1716 (Given - Provider: Bing Meyers) Intravenous, 100 mL, ONCE, Fri08/02/20 a t 1720, For 1 dose, This entry is for use by Radiology to intermittently used as a flush in patients receiving a CT scan. iopamidol (ISOVUE-370) solution 500 mL (COMPLETED) 1716 (Given - Provider: Bing Meyers - Comment: Bulk) 500 mL, Intravenous, ONCE, 08/02/20 at 1720, For 1 dose documented in this encounter Care Teams Hedge Fund Accountant Relationship Specialty Start Date End Date Center, [facility] PCP - General 06/29/20 [place] [address] documented as of this encounter
--- OUTSIDE RECORDS SUMMARY | 2022-05-22 13:29 | XMS_ITS | Encounter Summary ---
:1995 Author Organization [facility] Address [address] [place] [address]. [place] [address] Care Team Providers Name Role Phone Unavailable Primary Care Provider Unavailable Reason for Visit Reason Onset Date Comments Social Work Services 06/10/2018 Encounter Details Date Type Department Care Team Description 06/10/2018 Telephone [facility] Gretchen Stiles Work Services [facility] MAMADOU Rhodes [address] [address] [place], [place] [address] Social History Tobacco Use Types Packs/Day Years Used Date Smoking Tobacco: Never Assessed Sex Assigned at Date Recorded Not on file documented as of this encounter Miscellaneous Notes Telephone Encounter - Gretchen Stiles, FOREIGN LANGUAGES DEPARTMENT CHAIR - 06/10/2018 2:34 PM SCHOOL FUNDRAISING DIRECTOR D: Mr. Nilton Moya is a 22 year old man who wants to donate a segment of his liver to a friend, Mr. Holly Ahn. I: I completed an initial psychosocial assessment over the phone. A: Mr. Moya is single, never , and does not have any children. He does have a girlfriend and has identified her as his complex care nurse. I asked that he bring her to his evalution. Mr. Moya lives with his parents, who are not supportive of his desire to be a liver donor. He states that they were not supportive of his desire to enlist in the [employer] either. Mr. Moya served in the [employer] for 4 years and was honorably discharged in 2016. He states that he has disability pay due to an injury he sustained in the [employer] and resulting PTSD. I asked about this and he tells me that he has anxiety mainly. He states that he [facility] a [facility] one time per month and attends a vets support group regularly in [place], [place] where he lives. He denies any history of psychiatric hospitalizations. He denies any history of suicidal thinking, pans or past attempts. He states that he does not drink any alcohol, which is a personal decision he made after having an alcoholic roommate when he wasin the . Mr. Moya denies use of any other substances. 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 He states that he knows the recipient from work and that they have been friends for 1 year. He feels strongly that he wants to donate out of a sense of duty, responsibility, and wanting to improve his friend's life. He reports that he had to talk his friend into allowing him to look into being a donor for him, since his friend feels like it would be too much to ask. P: While I am concerned about mr. Moya' PTSD diagnosis, it is not an absolute contraindication to living liver donation. I support his desire to come in for living liver donor evaluation, but I wouldalso want him to have neuropsychological testing with Nila Mir as a part of his evaluation. LUIZ Jasmine, FOREIGN LANGUAGES DEPARTMENT CHAIR Clinical Scientist/Engineer and Independent Donor Advocate [facility] Pager: [phone] Direct: [phone] OL FUNDRAISING DIRECTOR documented in this encounter Plan of Treatment Not on filedocumented as of this encounter Visit Diagnoses Not on filedocumented in this encounter
--- OUTSIDE RECORDS SUMMARY | 2022-05-22 13:29 | XMS_ITS | Encounter Summary ---
:1995 Author Organization [facility] Address [address] [place] [address] Care Team Providers Name Role Phone [facility] Primary Care Provider [phone] Encounter Details Date Type Department Care Team Description 08/02/2020 Travel Social History Tobacco Use Types Packs/Day Years Used Date Smoking Tobacco: Never Assessed Sex Assigned at Date Recorded Not on file COVID-19 Exposure Response Date Recorded In the last month, have you been in contact with No / Unsure 08/02/2020 2:25 PM ASSISTANT PROFESSOR OF ENGLISH someone who was confirmed or suspected to have Coronavirus / COVID-19? documented as of this encounter Plan of Treatment Not on filedocumented as of this encounter Visit Diagnoses Not on filedocumented in this encounter Care Teams Pomology Teacher Relationship Specialty Start Date End Date [facility] PCP - General 06/29/20 [place] [address] documented as of this encounter
--- OUTSIDE RECORDS SUMMARY | 2022-05-22 13:30 | XMS_ITS | Encounter Summary ---
:1995 Author Organization [facility] [place] Address [address] [place] [address] Care Team Providers Name Role Phone Unassigned, Provider Primary Care Provider Unavailable Encounter Details Date Type Department Care Team Description 06/09/1989 PN Conversion Only GLUTEN SETTLING TENDER [address] [place] [address] Social History Tobacco Use Types Packs/Day Years Used Date Smoking Tobacco: Never Assessed Sex Assigned at Date Recorded Not on file documented as of this encounter Plan of Treatment Not on filedocumented as of this encounter Visit Diagnoses Not on filedocumented in this encounter Care Teams Hedis Nurse Relationship Specialty Start Date End Date Unassigned, Provider PCP - General 03/24/00 08/10/[address] [place] [address] documented as of this encounter
--- OUTSIDE RECORDS SUMMARY | 2022-05-22 13:30 | XMS_ITS | Encounter Summary ---
:1995 [facility] [address], [place] [address] Care Team Providers Name Role Phone Needs Pcp, Assignment Primary Care Provider Reason for Referral (Routine) - Closed Specialty Diagnoses / Procedures Referred By Contact Refer red To Contact Diagnoses Other chest pain Chest pain, unspecified type Akira Segundo MD Procedures Stress Echocardiogram [address] [place], [place] [address] Referral ID Status Reason Start Date Expiration Date Visits Requ ested Visits Authorized [id number] Closed 08/11/2020 11/10/2021 1 1 ER CENTER ADVISOR Reason for Visit Reason Comments CONSULT Encounter Details Date Type Department Care Team Description 08/11/2020 Initial Consult Adelso Juan MD [address] [place] [address] Chest pain, unspecified type (Primary Dx ); [place] [address] Nurse, Cardiology II Bv Other chest pain Cardiology [address] [place] [address] Social History Tobacco Use Types Packs/Day Years Used Date Smoking Tobacco: Former Smokeless Tobacco: Never Sex Assigned at Date Recorded Not on file documented as of this encounter Last Filed Vital Signs Vital Sign Reading Time Taken Comments Blood Pressure 134/82 08/11/2020 8:50 AM CAREER CENTER ADVISOR Pulse 87 08/11/2020 8:50 AM CAREER CENTER ADVISOR Temperature - - Respiratory Rate - - Oxygen Saturation - - Inhaled Oxygen Concentration - - Weight 99.4 kg (219 lb 3.2 oz) 08/11/2020 8:50 AM CAREER CENTER ADVISOR Height - - Body Mass Index - - documented in this encounter Patient Instructions Patient InstructionsAkira Segundo MD - 08/11/2020 8:30 AM CST Marcos, it was a pleasure meeting you! I do not have a clear picture of what could be causing your symptoms. Let's check some blood work and a stress echocardiogram to get a better picture of what might be going on. Future Diagnostic Tests: -stress echocardiogram Follow-up -based on the results, I will call you For any questions or concerns that may come up, feel free to kindly call the cardiology clinic RN Sparkle araiza, at [phone]. Thanks again! Dimitrios Segundo MD [facility] ER CENTER ADVISOR documented in this encounter Progress Notes Akira Segundo MD - 08/11/2020 8:30 AM CST Images from the original note were not included. CARDIOLOGY NOTE MARCOS MARTIN : 1995 [facility]: [id number] Date of Service: 08/11/2020 In-person consultation completed today. HPI Marcos Martin is a 24 y.o. male who presents for chest pain. He has a history of anxiety and is on fluoxetine. He also takes anabolic steroids in the last 1-2 weeks. [facility] is a [facility] twice in the last 6 weeks with chest pain. Workup with labs, troponin, electrocardiogram, CT PE protocol negative for etiology. Describes two similar episodes prompting his recent ED visits in June and July of 2020. Noteshe was sitting at work or driving to work, and feeling slow onset of nausea, tunnel vision, and thena cooling sensation in his lower chest and upper abdomen that went into his thighs. Each episode lasted approximately 8 hours and eventually went away without particular treatment. Also felt some sharpstabbing sensations in the right side of his chest, which were intermittent, and pleuritic. In between the episodes and in the last 1-2 weeks since his most recent episode, he has had no symptoms whatsoever. 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 Friend of his in the [employer] recently. Marcos promised him he would do a weightlifting contest. He started taking anabolic steroids about 1-2 weeks ago. Currently taking testosterone, anadrol and trenbolone. Started these about 3 or 4 days after most recently ED visit. Has been doing heavy lifting, and does cardio 15-20 minutes prior to each lifting session. Feels shortness of breath during workouts over about 5-6 months. However, no chest pain or other symptoms during exertion. No recent illness. No pleuritic chest pain. No typical symptoms suggestive of pericarditis. He uses Hemp rolls sometimes to help with anxiety as well. He notes no correlation with using these and his symptoms. Nonsmoker. No early family history of coronary artery disease. Brother has some sort of arrhythmia he thinks. Rare alcohol use. Feels anxiety is well controlled when he started fluoxetine 4-5 months ago, he was previously having a lot of nightmares and night sweats. Past Medical History Reviewed in electronic medical record. No changes. Current medications Outpatient Medications Prior to Visit Medication Sig Note Dispense Refill ??? cetirizine (ZYRTEC) 10 MG tablet Take 10 mg by mouth daily. ??? drug not in computer trenbolone ethenate 08/11/2020: Pt takes 150 wkly ??? FLUoxetine (PROZAC) 40 MG capsule Take 40 mg by mouth daily. ??? fluticasone propionate (FLONASE) 50 MCG/ACT nasal solution Place 2 Sprays into both nostrils daily. ??? OXYMETHOLONE OR 20 mg daily. ??? Testosterone Enanthate 200 MG/ML SOLN Pt takes 250 mg twice a week No facility-administered medications prior to visit. Past Family/Social History Reviewed in electronic medical record. No changes; pertinent history outlined above. Physical Exam BP 134/82 (BP Location: Left Arm, BP Cuff Size: Thigh/XLarge) Pulse 87 Wt 219 lb 3.2 oz (08760 g) JVP normal. Cardiovascular: Regular. No murmurs. Respiratory: Unlabored. Clear bilaterally. Extremities: No LE edema. No clubbing or cyanosis. Peripheral pulses and symmetrical. Pertinent Data Labs Reviewed Electrocardiogram dated August 11, 2020 shows normal sinus rhythm, no finding suggestive of pericarditis Impression/Plan # noncardiac chest pain / cooling episodes # dyspnea on exertion I do not have a clear sense of what could be causing the cooling episodes, although could be an atypical vagal reflex for which hydration may be beneficial. I overall do not feel any primary cardiac etiology is causative. He has had a quite extensive workup twice, performed during active symptoms, which have been unrevealing and benign. Reassuringly he has been asymptomatic in between the episodes and in the recent 1-2 weeks. With his shortness of breath on exertion, it would be reasonable to check a stress echocardiogram. This will also help rule out any pericardial effusion. I will add on a thyroid level and check some other electrolytes. In considering this was a self-referral to a specialty clinic, I recommended to Marcos that he follow closely with his PCP at the [facility]. It will be important to make sure his primary care provider at the [facility] is looped in to what is going on. He verbalizes understanding. I also advised against use of anabolic steroids which can lead to development of early cardiovascular disease, rarely SCD, mal- effects on cholesterol, and potential psychiatric effects (aggression, etc). He verbalizes understanding. Recommendations: -labs today -stress echocardiogram -follow-up with PCP at the [facility] in the next 1-2 weeks -advise against anabolic steroid use -adequate hydration Follow-up: As needed based on stress test results Thank you for involving me in the care of your patient. Please let me know if questions or concerns arise. Number of minutes spent on this encounter: 60 minutes Dimitrios Segundo MD 08/11/2020, 9:36 AM Cardiology Department ER CENTER ADVISOR documented in this encounter Plan of Treatment Not on filedocumented as of this encounter Procedures Procedure Name Priority Date/Time Associated Comments Diagnosis ECG 12 LEAD Routine 08/11/2020 8:56 AM Other chest pain Resul ts for this OUTPATIENT CAREER CENTER ADVISOR procedure are i n the results section. documented in this encounter Results Stress Echocardiogram (08/15/2020 3:00 PM CAREER CENTER ADVISOR) Specimen (Source) Anatomical Collection Method Collection Time Re ceived Time Location / / Volume Laterality 08/15/2020 3:00 PM CAREER CENTER ADVISOR Narrative PN ECHO - 08/15/2020 3:01 PM CAREER CENTER ADVISOR STRESS ECHOCARDIOGRAM. Date: 08/15/2020 Start: 03:00 PM [...] HR: 194 bpm ? HR BP Product: 56631 % of Max Predicted HR: 88 ? [...] Name ?? VERONICA RODRÍGUEZ ?? Room N [facility] ? OUTPT Patient Number [id number] ?Date of Study ? 08/15/2020 Accession ?[id number] ? In terpreting ?HECTOR SLAUGHTERDAKOTAH, Number ? Physician ? Date of ??1995 ?Orde ring ?NORMAYVETTE Arteaga ?Physician Primary ?NEEDS MD Physician ?ASSIGNMENT ?Itinerant Teacher Assistant ? JL, RDCS Nurse ?DWAYNE, automatic teller machine servicer Note Hector Newell MD - 08/15/2020For matting of this note [...] HR: 194 bpm HR BP Product : 81027 % of Max Predicted HR: 88 Max [...] VERONICA RODRÍGUEZ Room Number OUTPT Patient Number [id number] Date of Study 0 08/15/2020 Interpreting EVELINA SLAUGHTERDENISEEBONIE, Number Physician MD Date of 1995 Ordering NORMA Arteaga Physician Primary NEEDS MD Physician ASSIGNMENT Itinerant Teacher Assistant JL, RDCS Nurse AD, RN Akira Segundo MD ET ECHO ORDERABLES Performing Organization Address [facility]/ZIP Code Phon e Number PN ECHO Phosphorus (08/11/2020 9:54 AM CAREER CENTER ADVISOR) athologist Signature Phosphorus 3.4 2.3 - 4.7 08/11/2020 [place] mg/dL 10:48 AM CAREER CENTER ADVISOR LABORATORY Specimen Anatomical Collection Method / Collection Time Recei viry Time (Source) Location / Volume Laterality Blood Venipuncture / 08/11/2020 9:54 08/11/2020 Unknown AM CAREER CENTER ADVISOR 10:13 AM CAREER CENTER ADVISOR Akira Segundo MD LAB_1 Performing Organization Address [facility] Phon e Number [facility] [address] [place], [place] [phone] Magnesium (08/11/2020 9:54 AM CAREER CENTER ADVISOR) athologist Signature Magnesium 2.1 1.6 - 2.6 08/11/2020 [place] mg/dL 10:48 AM CAREER CENTER ADVISOR LABORATORY Specimen Anatomical Collection Method / Collection Time Recei viry Time (Source) Location / Volume Laterality Blood Venipuncture / 08/11/2020 9:54 08/11/2020 Unknown AM CAREER CENTER ADVISOR 10:13 AM CAREER CENTER ADVISOR Akira Segundo MD LAB_1 Performing Organization Address [facility] Phon e Number [facility] [address] [place] [address] TSH with Free T4 (if TSH Abnormal) (08/11/2020 9:54 AM CAREER CENTER ADVISOR) athologist Signature TSH, Reflex 2.58 0.30 - 4.50 08/11/2020 [facility] u[facility]/mL 4:47 PM CAREER CENTER ADVISOR LABORATORY Specimen Anatomical Collection Method / Collection Time Recei viry Time (Source) Location / Volume Laterality Blood Venipuncture / 08/11/2020 9:54 08/11/2020 Unknown AM CAREER CENTER ADVISOR 10:13 AM CAREER CENTER ADVISOR Narrative [facility] - 08/11/2020 4:47 P M CAREER CENTER ADVISOR Lab will automatically reflex to Free T4 when TSH results are outside of reference range for patient's age group. Akira Segundo MD LAB_1 Performing Organization Address City/[facility]/ZIP [facility] Phon e Number [facility] [address] [place] [address] ECG 12 Lead Outpatient (08/11/2020 8:56 AM CAREER CENTER ADVISOR) P athologist Signature Ventricular Rate 80 BPM [facility] Atrial Rate 80 BPM [facility] P-R Interval 150 ms [facility] QRS Duration 94 ms [facility] QT 356 ms [facility] QTc 410 ms [facility] P [place] 75 degrees [facility] R [place] 68 degrees [facility] T [place] 41 degrees [facility] Specimen (Source) Anatomical Collection Method Collection Time Re ceived Time Location / / Volume Laterality 08/11/2020 8:56 AM CAREER CENTER ADVISOR Narrative [facility] - 08/11/2020 10:43 AM CAREER CENTER ADVISOR Sinus rhythm Normal ECG No previous ECGs available Confirmed by Marcos Nieto ([id number]) on 08/11 10:43:04 AM Procedure Note Marcos Nieto III, MD - 08/11/2020For matting of this note might be different from the original. Sinus rhythm Normal ECG No previous ECGs available Confirmed by Marcos Nieto ([id number]) on 08/11 10:43:04 AM Akira Segundo MD PN ECG ORDERABLES Performing Organization Address City/[facility] Phon e Number [facility] [address] [place] [address] documented in this encounter Visit Diagnoses Diagnosis Chest pain, unspecified type - Primary Chest pain, unspecified type documented in this encounter Care Teams Machine Sizer Relationship Specialty Start Date End Date Needs Pcp, Assignment PCP - General 08/11/20 [place] [address] documented as of this encounter
== END 2022-05-22 13:36 | disposition left against medical advice (07) ==
PROVIDERS: Emergency Provider Family Medicine
DX: Z53.21 Procedure and treatment not carried out due to patient leaving prior to being seen by health care provider (principal)
CPT/HCPCS: 99281

== ENCOUNTER 2022-09-02 14:58 | Outpatient (CLI) | payer OTHER, SELFPAY ==
[2022-09-02 23:28] LABS: Chlamydia DNA Amplified* NOT DETECTED (No Detected); GC DNA Amplified* NOT DETECTED (No Detected)
== END 2022-09-02 14:59 | disposition home or self-care (01) ==
LOC: NFLDUCREF 14:58
PROVIDERS: PCP Orthopaedic Surgery Sports Medicine; Visit Provider Nurse Practitioner Family
DX: Z11.3 Encounter for screening for infections with a predominantly sexual mode of transmission (principal)
CPT/HCPCS: 0353U

== ENCOUNTER 2022-12-20 23:32 | Emergency (ER) | payer OTHER, SELFPAY ==
[2022-12-20 23:41] VITALS: BP 164/92; PULSE 84; RESP 20; TEMP 36.2; O2SAT 97
--- NOTE | 2022-12-20 23:51 | CRLHL7_ITS ---
For Patients: As a result of the Cures Act, medical imaging exams and procedure reports are released immediately into your electronic medical record. You may view this report before your referring provider. If you have questions, please contact your health care provider. INDICATION: Shortness breath. TECHNIQUE: Chest 1 views. COMPARISON: None. FINDINGS: Cardiovascular and mediastinum: Cardiomediastinal silhouette is within normal limits. Lungs and pleural spaces: Lungs are clear. No sign of pleural effusion. No pneumothorax. Bones and soft tissues: No significant findings. IMPRESSION: No acute cardiopulmonary process identified. Dictated by Stella Lisa MD @ 12/21/2022 12:09:34 AM (Electronically Signed)
--- NOTE | 2022-12-20 23:51 | ED.GENADULT ---
HPI - General Adult General Chief complaint: Chest Pain Stated complaint: Chest Palpitations, blurry vision Time Seen by Provider: 12/20/22 23:45 History of Present Illness HPI narrative: Patient is a 27-year-old gentleman comes in tonight with palpitations. His palpitations started and ended approximately 2 hours ago. I felt like his heart was irregular but had no overt chest pain no shortness of breath orthopnea no PND no nausea no vomiting. 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 Patient has no history of any blood clots or heart disease. He has otherwise been in good health with no other major complaints or concerns. EKG upon arrival shows normal sinus rhythm no acute ST or T-wave changes. Related Data Home Medications Medication Instructions Recorded Confirmed beet root 2 tab PO DAILY 05/22/22 09/02/22 cetirizine 10 mg capsule (Zyrtec) 10 mg PO QDAY PRN 09/02/22 09/02/22 finasteride 5 mg tablet 5 mg PO QDAY 09/02/22 12/20/22 fluoxetine 20 mg capsule 20 mg PO QDAY 09/02/22 09/02/22 oxandrolone 2.5 mg tablet 2.5 mg PO QDAY 09/02/22 12/20/22 anastrozole 1 mg tablet (Arimidex) 1 mg PO DAILY 12/20/22 12/20/22 Allergies Allergy/AdvReac Type Severity Reaction Status Date / Time No Known Drug Allergies Allergy Verified 09/02/22 14:44 Review of Systems Status of ROS: Reports: 10 or more systems reviewed and unremarkable except as noted in History and below PFSH PFS Surgical History H/O adenoidectomy ?Z90.89 - Acquired absence of other organs (ICD-10) Social History Smoking Status: Never smoker Do you use any of these nicotine containing products: None Second hand tobacco smoke exposure: No How often do you have a drink containing alcohol: never How often do you have six or more drinks on one occasion: Never AUDIT-C Alcohol total score: 0 Non-prescribed substance use: denies use service: Yes Exam Narrative: Exam Narrative: EXAM GENERAL: Patient appears comfortable and well. EYES: No scleral icterus. ENT: Tympanic membranes and oropharynx normal. THYROID: no thyroid nodules or thyromegaly. LYMPH: No supraclavicular or cervical lymphadenopathy. SKIN: Visible skin seen during exam normal or with benign process only. EXT: No dependent lower extremity pedal edema. HEART: Regular rate and rhythm with no murmurs, rubs, or gallops. LUNGS: Clear to auscultation bilaterally with no crackles or wheezes. ABD: Soft, non tender, non distended. PSYCH: Good eye contact, speech is not pressured. Const: Vital Signs, click to edit/add: Vital Signs - 24 hr 12/20/22 23:41 Temperature 97.1 F L Pulse Rate [Pulse Oximeter] 84 Respiratory Rate 20 Blood Pressure [Ri ght Upper Arm] 164/92 H Pulse Oximetry 97 Oxygen Delivery Me thod Room Air Course Course Hospital Course: Will proceed with workup with troponin D-dimer CBC CMP portable chest x-ray. Watch for signs of recurrence. Vital Signs Vital signs: Initial Vital Signs Temperature 97.1 F L 12/20/22 23:41 Temperature Source Temporal Artery Scan 12/20/22 23:41 Pulse Rate 84 12/20/22 23:41 Pulse Rhythm Regular 12/20/22 23:41 Respiratory Rate 20 12/20/22 23:41 Blood Pressure 164/92 H 12/20/22 23:41 Blood Pressure Mean 116 H 12/20/22 23:41 Pulse Oximetry 97 12/20/22 23:41 Oxygen Delivery Method Room Air 12/20/22 23:41 Vital Signs Temperature 97.1 F L 12/20/22 23:41 Pulse Rate 84 12/20/22 23:41 Respiratory Rate 20 12/20/22 23:41 Blood Pressure 164/92 H 12/20/22 23:41 Pulse Oximetry 97 12/20/22 23:41 Oxygen Delivery Method Room Air 12/20/22 23:41 Temperature 97.1 F L 12/20/22 23:41 Pulse Rate 84 12/20/22 23:41 Respiratory Rate 20 12/20/22 23:41 Blood Pressure 164/92 H 12/20/22 23:41 Pulse Oximetry 97 12/20/22 23:41 Oxygen Delivery Method Room Air 12/20/22 23:41 Medical Decision Making MDM Narrative Medical decision making narrative: Patient presents with palpitations. EKG shows normal sinus rhythm. Laboratory workup shows polycythemia likely due to anabolic steroid use. Electrolytes are stable D-dimer troponin negative chest x-ray is unremarkable upon my review. This time I will caution him about continued use of anabolic steroids and recommend outpatient follow-up. Otherwise reassurance offered. Differential Diagnosis Differential Diagnosis: Palpitations anemia diabetes mellitus fatigue weakness Lab Data Labs: Lab Results 12/20/22 12/20/22 Range/Units 23:50 23:59 WBC 7.83 (4.50-11.00) K/uL RBC 5.65 (4.30-5.90) m/uL Hgb 17.9 H (13.5-17.5) gm/dL Hct 53.5 H (37.0-53.0) % MCV 95 (80-100) fL MCH 32 (26-34) pg MCHC 34 (32-36) gm/dL RDW Coeff of Stephon 14.1 (11.5-15.5) % Plt Count 213 (140-440) K/uL Neut % (Auto) 46.1 (42.0-72.0) % Lymph % (Auto) 37.3 (20-44) % [place] % (Auto) 9.7 (0.0-11.0) % Eos % (Auto) 5.1 (0.0-7.0) % Baso % (Auto) 0.8 (0.0-3.0) % Neut # (Auto) 3.61 (1.7-7.0) K/uL Lymph # (Auto) 2.92 H (0.90-2.90) K/uL [place] # (Auto) 0.80 (0.00-0.90) K/UL Eos # (Auto) 0.40 (0.00-0.50) K/uL Baso # (Auto) 0.06 (0.00-0.30) K/uL Abs Immat Gran (auto) 0.08 (0.00-0.30) K/uL Imm/Tot Granulo (auto) 1.0 % D-Dimer Quant (PE/DVT) 0.36 (0.00-0.50) ug/ml Sodium 139 (135-149) mmol/L Potassium 3.3 L (3.6-5.1) mmol/L Chloride 106 (96-114) mmol/L Carbon Dioxide 24 (20-32) mmol/L BUN 17 (5-24) mg/dL Creatinine 1.1 (0.5-1.5) mg/dL Estimated GFR 93 ml/min Glucose 106 (60-115) mg/dL Calcium 8.7 (8.4-10.6) mg/dL Total Bilirubin 0.6 (0.1-1.5) mg/dL AST 47 H (12-35) U/L ALT 41 (4-50) U/L Alkaline Phosphatase 120 (40-150) U/L Troponin I < 0.01 L (0.01-0.04) ng/mL Total Protein 7.5 (6.0-8.3) g/dL Albumin 4.2 (3.3-5.0) g/dL Discharge Plan Discharge Clinical Impression: Heart palpitations Patient Disposition: Home, Self-Care Condition: Stable Instructions: Heart Palpitations (ED) Activity Level: No Restrictions Discharge Diet: Regular Prescriptions: No Action finasteride 5 mg tablet 5 mg PO QDAY fluoxetine 20 mg capsule 20 mg PO QDAY Zyrtec 10 mg capsule 10 mg PO QDAY PRN oxandrolone 2.5 mg tablet 2.5 mg PO QDAY beet root 2 tab PO DAILY anastrozole [Arimidex] 1 mg tablet 1 mg PO DAILY Follow Up/Referrals: Vineet Pizarro MD [Primary Care Provider] - Stand Alone Forms: MyHealth Info Instructions
[2022-12-21 00:04] LABS: Basophils Absolute Auto 0.06 K/uL (0.00-0.30); Basophils Percent Auto 0.8 % (0.0-3.0); Eosinophils Percent Auto 5.1 % (0.0-7.0); Hematocrit 53.5 % (37.0-53.0); Hemoglobin* 17.9 gm/dL (13.5-17.5); Immature Granulocytes Abs Auto 0.08 K/uL (0.00-0.30); Lymphocytes Absolute Auto 2.92 K/uL (0.90-2.90); Lymphocytes Percent Auto 37.3 % (20-44); Mean Corpuscular HGB Conc 34 gm/dL (32-36); Mean Corpuscular Hemoglobin 32 pg (26-34); Mean Corpuscular Volume 95 fL (80-100); Monocytes Percent Auto 9.7 % (0.0-11.0); Neutrophils Absolute Auto 3.61 K/uL (1.7-7.0); Neutrophils Percent Auto 46.1 % (42.0-72.0); Platelet Count* 213 K/uL (140-440); RDW Coefficient of Variation % 14.1 % (11.5-15.5); Red Blood Count 5.65 m/uL (4.30-5.90); White Blood Count* 7.83 K/uL (4.50-11.00)
[2022-12-21 00:08] LABS: Slide Review Reflex No
[2022-12-21 00:25] LABS: D Dimer Quantitative* 0.36 ug/ml (0.00-0.50)
[2022-12-21 00:30] LABS: Albumin* 4.2 g/dL (3.3-5.0); Chloride* 106 mmol/L (96-114); Sodium* 139 mmol/L (135-149)
[2022-12-21 00:31] LABS: Potassium* 3.3 mmol/L (3.6-5.1)
[2022-12-21 00:33] LABS: Alkaline Phosphatase* 120 U/L (40-150); Aspartate Amino Transferase* 47 U/L (12-35); Bilirubin Total* 0.6 mg/dL (0.1-1.5); Blood Urea Nitrogen* 17 mg/dL (5-24); Carbon Dioxide* 24 mmol/L (20-32); Creatinine* 1.1 mg/dL (0.5-1.5); Estimated Glomerular Filt Rate 93 ml/min; Total Protein* 7.5 g/dL (6.0-8.3)
[2022-12-21 00:34] LABS: Alanine Aminotransferase* 41 U/L (4-50); Calcium* 8.7 mg/dL (8.4-10.6); Glucose* 106 mg/dL (60-115)
[2022-12-21 00:48] LABS: Troponin I* < 0.01 ng/mL (0.01-0.04)
== END 2022-12-21 01:00 | disposition home or self-care (01) ==
LOC: ED 12-21 00:55
PROVIDERS: Emergency Provider Internal Medicine
DX: R00.2 Palpitations (principal)
CPT/HCPCS: 36415; 71045; 80053; 84484; 85025; 85379; 93005; 99283; 99284

== ENCOUNTER 2023-06-20 14:45 | Outpatient (CLI) | payer OTHER, SELFPAY ==
--- OUTSIDE RECORDS SUMMARY | 2023-06-20 14:49 | XMS_ITS | Continuity of Care Document ---
Author Name [facility] Organization [facility] Care Team Providers Care Handbag Stitcher Name Role Phone [facility] Unavailable Unavailable Problems Combined list of problems from Department of Defense and Veterans Affairs facilities. It does not include entries that were removed or entered in error. Problem Status Onset Date Problem Type Date of Resolution Comments Source warts verruca Inactive Condition WARTS VERRUCA: Gave patient 17.6% salycilic acid to apply [...] happens he should irrigate the canal copiously. 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 DoD visit for: services physical Active Condition DoD Need For Prophylactic Antibiotics Inactive Condition DoD visit for: potential organ / tissue donor Inactive Condition DoD Need For Vaccination Yellow Fever Inactive Condition DoD Need For Vaccination Polio Inactivated Inactive Condition DoD Need For Vaccination Against Bacterial Diseases Inactive Condition DoD community-acquir ed pneumonia Inactive Condition DoD Intervention And Counseling On Cessation Of Tobacco Use Active Condition DoD visit for: examination of subpopulation Active Condition DoD Need For Vaccination Hepatitis A And Hepatitis B Inactive Condition DoD Need For Vaccination Pneumococcal Inactive Condition DoD Need For Vaccination Against DTP Inactive Condition DoD visit for: screening exam pulmonary tuberculosis Inactive Condition DoD Blood Typing Inactive Condition DoD visit for: ears / hearing exam Active Condition DoD Patient Education - Injury Prevention Active Condition [facility] Acne vulgaris Active Condition [facility] Cervicalgia Active Condition [facility] Gynaecomastia Active Condition [facility] Insomnia Active Condition [facility] Low back pain Active Condition [facility] Diagnosis: ICD-10-CM R10.30 Lower abdominal pain, unspecified Active Diagnosis [facility] Diagnosis: ICD-10-CM L28.1 Prurigo nodularis Active Diagnosis [facility] Diagnosis: ICD-10-CM 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 [facility] Diagnosis: ICD-10-CM 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 [facility] Diagnosis: ICD-10-CM K02.62 Dental caries on smooth surface penetrating into dentin Active Diagnosis [facility] Diagnosis: ICD-10-CM M25.512 Pain in left shoulder Active Diagnosis [facility] Diagnosis: ICD-10-CM F43.89 Other reactions to severe stress Active Diagnosis [facility] Diagnosis: ICD-10-CM 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 Medication Details Route Status Patient Instructions Prescription Expires Prescription Number Last Dispense Date Ordering Provider Order Date Source ACETAMINOPH EN 500MG TAB TAKE TWO TABLETS BY MOUTH EVERY 8 HOURS NEEDED FOR PAIN ORALLY 03/06/2023 [id number] NINOSKA DE LA FUENTE NNNini 2022 [facility] ALBUTEROL 90MCG/ACTUA T (CFC-F) INHL,ORAL,8 .5GM DOSE COUNTER INHALE 2 PUFFS BY INHALATI ON FOUR TIMES A DAY NEEDED FOR IMMEDIAT E RELIEF OF SHORTNES S OF BREATH *SHAKE WELL* INHALA TION ACTIVE 09/14/2023 [id number] 3 Bala THOMPSON ENJAMIN E 2022 [facility] Benzoyl Peroxide (PanOxyl 10 Eq.) Soap 10% Topical WASH AFFECTED AREA TOPICALL Y EVERY MORNING TO FACE FOR ACNE Active 01/23/2024 [id number] 3 MARIE GARCIA, HARLAN 2022 [facility] BENZOYL PEROXIDE 10% WASH WASH AFFECTED AREA TOPICALL Y EVERY MORNING TO FACE FOR ACNE TOPICA LLY ACTIVE 01/23/2024 [id number] 3 MARIE GARCIA,HARLAN 2022 [facility] CETIRIZINE (U/D) 10 MG ORAL TAB TAKE ONE TABLET BY MOUTH EVERY DAY FOR ALLERGIE S Active 09/14/2023 [id number] 3 SANGEETA FRANKS 2022 [facility] CETIRIZINE HCL 10MG TAB TAKE ONE TABLET BY MOUTH EVERY DAY FOR ALLERGIE S ORALLY ACTIVE 09/14/2023 [id number] 3 Bala THOMPSONMIN E 2022 [facility] CETIRIZINE HCL 10MG TAB TAKE ONE TABLET BY MOUTH EVERY DAY FOR ALLERGIE S ORALLY 06/11/2022 [id number] Bala THOMPSONMIN E 2021 [facility] Clindamycin 10mg/mL Swab, Topical APPLY TO AFFECTED AREA TOPICALL Y TWICE A DAY NEEDED FOR FLARED ACNE Active 09/14/2023 [id number] 3 SANGEETA FRANKS 2022 [facility] CLINDAMYCIN PO4 1% LOTION APPLY TO AFFECTED AREA TOPICALL Y TWICE A DAY NEEDED FOR FLARED ACNE TOPICA LLY ACTIVE 09/14/2023 [id number] 3 Bala THOMPSON ENJAMIN E 2022 [facility] CLINDAMYCIN PO4 1% LOTION APPLY TO AFFECTED AREA TOPICALL Y TWICE A DAY NEEDED FOR FLARED ACNE TOPICA LLY DISCONT INUED 12/12/2022 [id number] 3 Bala THOMPSON ENJAMIN E 2021 [facility] FINASTERIDE 1MG TAB TAKE ONE TABLET BY MOUTH EVERY DAY ORALLY 04/22/2023 [id number] 3 MARIE AR,HARLAN 2022 [facility] Fluoxetine (Prozac) Capsule Conventiona l 20 mg Oral TAKE TWO CAPSULES BY MOUTH EVERY DAY - NOTIFY PROVIDER IF YOU EXPERIEN CE SIDE EFFECTS WITH THIS MEDICATI ON 05/22/2022 [id number] 2 [facility]AN[facility] FLUOXETINE HCL 20MG CAP TAKE TWO CAPSULES BY MOUTH EVERY DAY - NOTIFY PROVIDER IF YOU EXPERIEN CE SIDE EFFECTS WITH THIS MEDICATI ON ORALLY 05/22/2022 [id number] 2 Bala THOMPSON E 2021 [facility] MINOXIDIL 2.5MG TAB TAKE ONE TABLET BY MOUTH EVERY DAY ORALLY ACTIVE 06/17/2024 [id number] 4 WALDO GARCIA I 2023 [facility] MINOXIDIL 2.5MG TAB TAKE ONE TABLET BY MOUTH EVERY DAY ORALLY DISCONT INUED 04/22/2023 [id number] 3 MARIE AR,HARLAN 2022 [facility] MINOXIDIL 2.5MG TAB TAKE ONE TABLET BY MOUTH EVERY DAY ORALLY 05/15/2023 [id number] 3 OJ LITTLE 2022 [facility] MINOXIDIL 5% FOAM,TOP APPLY ONE-HALF CAPFUL TOPICALL Y TWICE A DAY TOPICA LLY 04/22/2023 [id number] 3 MARIE AR,HARLAN 2022 [facility] TRETINOIN 0.025% CREAM,TOP APPLY SPARINGL Y TO FACE TOPICALL Y EVERY THIRD DAY FOR 2 WEEKS, THEN APPLY SPARINGL Y TO FACE EVERY OTHER DAY AT BEDTIME FOR 2 WEEKS, THEN APPLY SPARINGL Y TO FACE AT BEDTIME TOLERATE D TOPICA LLY ACTIVE 01/23/2024 [id number] 3 MARIE GARCIA,HARLAN 2022 [facility] VALACYCLOVI R HCL 1GM TAB TAKE TWO TABLETS BY MOUTH TWICE A DAY FOR COLD SORE ORALLY DISCONT INUED 09/28/2022 [id number] 3 Bala THOMPSONMIN E 2021 [facility] VALACYCLOVI R HCL 1GM TAB TAKE TWO TABLETS BY MOUTH TWICE A DAY FOR COLD SORE FOR 1 DAY ORALLY 10/18/2022 [id number] 3 Bala THOMPSON ENJAMIN E 2022 [facility] Allergies, Adverse Reactions, Alerts Combined list of allergies from Department of Defense and Veterans Affairs facilities. It does not include entries that were removed or entered in error. Substance Category Reaction Severity Reaction type Status Date Reported Comments Source No Known Allergies Drug allergy (disorder) active 02/12/2012 [facility] Immunizations Combined list of available immunizations from the Department of [facility] and Veterans Affairs facilities. Immunization Series Date Given Administered By Site Reaction Lot Number CVX Code Drug Manager Integrated Status Comments Source TDAP 2022 BETY CORTÉS LEFT DELTO ID [id number] 115 complet ed [facility] TDAP 2021 115 complet ed [facility] INFLUENZA, INJECTABLE, QUADRIVALENT, PRESERVATIVE FREE 2020 150 complet ed [facility] COVID-19 (PFIZER), MRNA, LNP-S, PF, 30 MCG/0.3 ML DOSE 2 2020 208 complet ed PFR; [id number]; 1 [facility] COVID-19 (PFIZER), MRNA, LNP-S, PF, 30 MCG/0.3 ML DOSE 1 2020 208 complet ed PFR; [id number]; 1 [facility] INFLUENZA, INJECTABLE, QUADRIVALENT 2018 158 complet ed [facility] Administe red by: [facility] (NPI=Not Provided) . Partner 95 Lot#: [id number] 2 Mfr: SEQIRUS [facility] INFLUENZA, SEASONAL, INJECTABLE, PRESERVATIVE FREE 2017 140 complet ed [facility] influenza, injectable, quadrivalent, contains preservative 0 2014 [id number] Exara (SKB) complet ed influenza , injectabl e, quadrival ent, contains preservat emilie DoD typhoid Vi capsular polysaccharid e vaccine 1 2014 [id number] Sanofi Pasteur (PMC) complet ed typhoid Vi capsular polysacch aride vaccine DoD typhoid Vi capsular polysaccharid e vaccine 2 2014 UNK 101 [employer] [facility] complet ed typhoid Vi capsular polysacch aride vaccine DoD influenza, injectable, quadrivalent, contains preservative 0 2013 UNK 158 Sanofi Pasteur (PMC) complet ed influenza , injectabl e, quadrival ent, contains preservat emilie DoD anthrax vaccine 3 2013 UNK 24 [employer] [place] (MIP) complet ed anthrax vaccine DoD poliovirus vaccine, inactivated 0 2013 UNK 10 [employer]. (MED) complet ed polioviru s vaccine, inactivat ed DoD IPV 2013 10 complet ed [place] [facility] anthrax vaccine 2 2013 UNK 24 [employer] [place] (MIP) complet ed anthrax vaccine DoD vaccinia (smallpox) vaccine 0 2013 [id number] 75 (MELODY) complet ed vaccinia (smallpox ) vaccine DoD VACCINIA (SMALLPOX) 2013 75 complet ed [place] [facility] anthrax vaccine 1 2013 [id number] [employer] [place] (MIP) complet ed anthrax vaccine DoD [place] Citizen Encephalitis vaccine for intramuscular administratio n 2 2013 [id number] Merck (MSD) complet ed [place] Citizen Encephali tis vaccine for intramusc ular administr ation DoD TURKMEN ENCEPHALITIS SC 2013 39 complet ed [place] [facility] [place] Citizen Encephalitis vaccine for intramuscular administratio n 1 2013 UNK 134 Merck (MSD) complet ed [place] Citizen Encephali tis vaccine for intramusc ular administr ation DoD typhoid Vi capsular polysaccharid e vaccine 1 2012 [id number] Sanofi Pasteur (PMC) complet ed typhoid Vi capsular polysacch aride vaccine DoD influenza, live, intranasal, quadrivalent 0 2012 [id number] [employer]. (MED) complet ed influenza , live, intranasa l, quadrival ent DoD hepatitis A and hepatitis B vaccine 3 2012 [id number] Smithine (SKB) complet ed hepatitis A and hepatitis B vaccine DoD yellow fever vaccine 0 2011 [id number] Sanofi Pasteur (PMC) complet ed yellow fever vaccine DoD YELLOW FEVER 2011 37 complet ed [place] [facility] poliovirus vaccine, inactivated 0 2011 [id number] 10 Sanofi Pasteur (PMC) complet ed polioviru s vaccine, inactivat ed DoD hepatitis A and hepatitis B vaccine 2 2011 [id number] 104 Smithine (SKB) complet ed hepatitis A and hepatitis B vaccine DoD hepatitis A and hepatitis B vaccine 1 2011 [id number] 104 Smithine (SKB) complet ed hepatitis A and hepatitis B vaccine DoD influenza virus vaccine, live, attenuated, for intranasal use 0 2011 [id number] 111 [employer] (CSL) complet ed influenza virus vaccine, live, attenuate d, for intranasa l use DoD meningococcal polysaccharid e (groups A, C, Y and W-135) diphtheria toxoid conjugate vaccine (MCV4P) 0 2011 [id number] 114 [employer] (AVB) complet ed meningoco ccal polysacch aride (groups A, C, Y and W-135) diphtheri a toxoid conjugate vaccine (MCV4P) DoD tetanus toxoid, reduced diphtheria toxoid, and acellular pertu is vaccine, adsorbed 0 2011 [id number] 115 Smithine (SKB) complet ed tetanus toxoid, reduced diphtheri a toxoid, and acellular pertussis vaccine, adsorbed DoD pneumococcal conjugate vaccine, 13 valent 0 2011 [id number] 133 Merck (MSD) complet ed pneumococ jeannette conjugate vaccine, 13 valent DoD Adenovirus, type 4 and type 7, live, oral 0 2011 [id number] 143 [employer] ([facility]) complet ed Adenoviru s, type 4 and type 7, live, oral DoD TD (ADULT), 2 LF TETANUS TOXOID, PRESERVATIVE FREE, ADSORBED 2011 09 complet ed [place] [facility] TDAP 2011 115 complet ed jlv [facility] MENINGOCOCCAL MCV4O 2010 136 complet ed [facility] TDAP 2010 115 complet ed [facility] INFLUENZA, SEASONAL, INJECTABLE 2007 141 complet ed [facility] TD (ADULT), 5 LF TETANUS TOXOID, PRESERVATIVE FREE, ADSORBED 2004 113 complet ed [facility] Results Combined list of recent chemistry, hematology and other laboratory results from Department of Defense and Veterans Affairs, ranging from 15 months to all on record, depending upon the facility. Order Name Results Value Reference Range Date Interpretation Specimen Comments Source POC ABG/LACT ATE PH OF VENOUS BLOOD 7.434 7.31 - 7.41 02/04 Specimen Type: VENOUS BLOOD No comment entered. Ordering Provider: JOSE GLASS Report Released Date/Time: Feb 04, 2023 12:50 AM Reporting Lab: [facility] [address] Performing Lab: [facility] [address] [facility] POC ABG/LACT ATE CARBON DIOXIDE [PARTIAL PRESSURE] IN VENOUS BLOOD 37.2 41 - 51 02/04 Specimen Type: VENOUS BLOOD No comment entered. Ordering Provider: JOSE GLASS Report Released Date/Time: Feb 04, 2023 12:50 AM Reporting Lab: [facility] [address] Performing Lab: [facility] [address] [facility] POC ABG/LACT ATE OXYGEN [PARTIAL PRESSURE] IN VENOUS BLOOD 62 02/04 Specimen Type: VENOUS BLOOD No comment entered. Ordering Provider: JOSE GLASS Report Released Date/Time: Feb 04, 2023 12:50 AM Reporting Lab: [facility] [address] Performing Lab: [facility] [address] [facility] POC ABG/LACT ATE CARBON DIOXIDE, TOTAL [MOLES/VOL UME] IN VENOUS BLOOD 26 24 - 29 02/04 Specimen Type: VENOUS BLOOD No comment entered. Ordering Provider: JOSE GLASS Report Released Date/Time: Feb 04, 2023 12:50 AM Reporting Lab: [facility] [address] Performing Lab: [facility] [address] [place] [facility] POC ABG/LACT ATE BICARBONAT E [MOLES/VOL UME] IN VENOUS BLOOD 24.9 23 - 28 02/04 Specimen Type: VENOUS BLOOD No comment entered. Ordering Provider: JOSE GLASS Report Released Date/Time: Feb 04, 2023 12:50 AM Reporting Lab: [facility] [address] Performing Lab: [facility] [address] [place] [facility] POC ABG/LACT ATE BASE EXCESS IN VENOUS BLOOD BY CALCULATIO N 1 - 2 02/04 Specimen Type: VENOUS BLOOD No comment entered. Ordering Provider: JOSE GLASS Report Released Date/Time: Feb 04, 2023 12:50 AM Reporting Lab: [facility] [address] Performing Lab: [facility] [address] [facility] POC ABG/LACT ATE FRACTIONAL OXYHEMOGLO BIN IN VENOUS BLOOD 92 02/04 Specimen Type: VENOUS BLOOD No comment entered. Ordering Provider: JOSE GLASS Report Released Date/Time: Feb 04, 2023 12:50 AM Reporting Lab: [facility] [address] Performing Lab: [facility] [address] [facility] POC ABG/LACT ATE LACTATE [MOLES/VOL UME] IN VENOUS BLOOD <1.6 0.90 - 1.70 02/04 Specimen Type: VENOUS BLOOD No comment entered. Ordering Provider: JOSE GLASS Report Released Date/Time: Feb 04, 2023 12:50 AM Reporting Lab: [facility] [address] Performing Lab: [facility] [address] [facility] ACT PART THROMBO TIME APTT IN PLATELET POOR PLASMA BY COAGULATIO N ASSAY 30.2 25.1 - 36.5 02/04 Specimen Type: PLASMA No comment entered. Ordering Provider: JOSE GLASS Report Released Date/Time: Feb 04, 2023 12:25 AM Reporting Lab: [facility] [address] Performing Lab: [facility] [address] [place] [facility] CBC & DIFF LEUKOCYTES [#/VOLUME] IN BLOOD BY AUTOMATED COUNT 9.58 4.0 - 11.0 02/04 Specimen Type: BLOOD Comment: Automated Differentia l Performed Ordering Provider: JOSE GLASS Report Released Date/Time: Feb 04, 2023 12:25 AM Reporting Lab: [facility] [address] Performing Lab: [facility] [address] [place] [facility] CBC & DIFF ERYTHROCYT ES [#/VOLUME] IN BLOOD BY AUTOMATED COUNT 5.43 4.6 - 6.2 02/04 Specimen Type: BLOOD Comment: Automated Differentia l Performed Ordering Provider: JOSE GLASS Report Released Date/Time: Feb 04, 2023 12:25 AM Reporting Lab: [facility] [address] Performing Lab: [facility] [address] [place] [facility] CBC & DIFF HEMOGLOBIN [MASS/VOLU ME] IN BLOOD 17.5 13.5 - 17.9 02/04 Specimen Type: BLOOD Comment: Automated Differentia l Performed Ordering Provider: JOSE GLASS Report Released Date/Time: Feb 04, 2023 12:25 AM Reporting Lab: [facility] [address] Performing Lab: [facility] [address] [place] [facility] CBC & DIFF HEMATOCRIT [VOLUME FRACTION] OF BLOOD BY AUTOMATED COUNT 50.7 41 - 54 02/04 Specimen Type: BLOOD Comment: Automated Differentia l Performed Ordering Provider: JOSE GLASS Report Released Date/Time: Feb 04, 2023 12:25 AM Reporting Lab: [facility] [address] Performing Lab: [facility] [address] [place] [facility] CBC & DIFF MCV [ENTITIC VOLUME] BY AUTOMATED COUNT 93.4 80 - 100 02/04 Specimen Type: BLOOD Comment: Automated Differentia l Performed Ordering Provider: JOSE GLASS Report Released Date/Time: Feb 04, 2023 12:25 AM Reporting Lab: [facility] [address] Performing Lab: [facility] [address] [place] [facility] CBC & DIFF MCH [ENTITIC MASS] BY AUTOMATED COUNT 32.2 27 - 33 02/04 Specimen Type: BLOOD Comment: Automated Differentia l Performed Ordering Provider: JOSE GLASS Report Released Date/Time: Feb 04, 2023 12:25 AM Reporting Lab: [facility] [address] Performing Lab: [facility] [address] [place] [facility] CBC & DIFF MCHC [MASS/VOLU ME] BY AUTOMATED COUNT 34.5 32.0 - 37.5 02/04 Specimen Type: BLOOD Comment: Automated Differentia l Performed Ordering Provider: JOSE GLASS Report Released Date/Time: Feb 04, 2023 12:25 AM Reporting Lab: [facility] [address] Performing Lab: [facility] [address] [place] [facility] CBC & DIFF PLATELETS [#/VOLUME] IN BLOOD BY AUTOMATED COUNT 212 150 - 400 02/04 Specimen Type: BLOOD Comment: Automated Differentia l Performed Ordering Provider: JOSE GLASS Report Released Date/Time: Feb 04, 2023 12:25 AM Reporting Lab: [facility] [address] Performing Lab: [facility] [address] [place] [facility] CBC & DIFF PLATELET MEAN VOLUME [ENTITIC VOLUME] IN BLOOD BY AUTOMATED COUNT 11.1 7.4 - 10.4 02/04 H Specimen Type: BLOOD Comment: Automated Differentia l Performed Ordering Provider: JOSE GLASS Report Released Date/Time: Feb 04, 2023 12:25 AM Reporting Lab: [facility] [address] Performing Lab: [facility] [address] [place] [facility] CBC & DIFF NEUTROPHIL S/100 LEUKOCYTES IN BLOOD BY MANUAL COUNT 49.6 40.0 - 80.0 02/04 Specimen Type: BLOOD Comment: Automated Differentia l Performed Ordering Provider: JOSE GLASS Report Released Date/Time: Feb 04, 2023 12:25 AM Reporting Lab: [facility] [address] Performing Lab: [facility] [address] [place] [facility] CBC & DIFF LYMPHOCYTE S/100 LEUKOCYTES IN BLOOD BY MANUAL COUNT 35.9 15.0 - 45.0 02/04 Specimen Type: BLOOD Comment: Automated Differentia l Performed Ordering Provider: JOSE GLASS Report Released Date/Time: Feb 04, 2023 12:25 AM Reporting Lab: [facility] [address] Performing Lab: [facility] [address] [place] [facility] CBC & DIFF MONOCYTES/ 100 LEUKOCYTES IN BLOOD BY AUTOMATED COUNT 9.0 2.0 - 12.0 02/04 Specimen Type: BLOOD Comment: Automated Differentia l Performed Ordering Provider: JOSE GLASS Report Released Date/Time: Feb 04, 2023 12:25 AM Reporting Lab: [facility] [address] Performing Lab: [facility] [address] [place] [facility] CBC & DIFF EOSINOPHIL S/100 LEUKOCYTES IN BLOOD BY AUTOMATED COUNT 5.0 0.0 - 6.0 02/04 Specimen Type: BLOOD Comment: Automated Differentia l Performed Ordering Provider: JOSE GLASS Report Released Date/Time: Feb 04, 2023 12:25 AM Reporting Lab: [facility] [address] Performing Lab: [facility] [address] [place] [facility] CBC & DIFF BASOPHILS/ 100 LEUKOCYTES IN BLOOD BY MANUAL COUNT 0.4 0.0 - 2.0 02/04 Specimen Type: BLOOD Comment: Automated Differentia l Performed Ordering Provider: JOSE GLASS Report Released Date/Time: Feb 04, 2023 12:25 AM Reporting Lab: [facility] [address] Performing Lab: [facility] [address] [place] [facility] CBC & DIFF ERYTHROCYT E DISTRIBUTI ON WIDTH [RATIO] BY AUTOMATED COUNT 13.4 11.5 - 14.5 02/04 Specimen Type: BLOOD Comment: Automated Differentia l Performed Ordering Provider: JOSE GLASS Report Released Date/Time: Feb 04, 2023 12:25 AM Reporting Lab: [facility] [address] Performing Lab: [facility] [address] [place] [facility] CBC & DIFF LYMPHOCYTE S [#/VOLUME] IN BLOOD BY AUTOMATED COUNT 3.44 1.0 - 4.0 02/04 Specimen Type: BLOOD Comment: Automated Differentia l Performed Ordering Provider: JOSE GLASS Report Released Date/Time: Feb 04, 2023 12:25 AM Reporting Lab: [facility] [address] Performing Lab: [facility] [address] [place] [facility] CBC & DIFF MONOCYTES [#/VOLUME] IN BLOOD BY AUTOMATED COUNT 0.86 0.1 - 1.0 02/04 Specimen Type: BLOOD Comment: Automated Differentia l Performed Ordering Provider: JOSE GLASS Report Released Date/Time: Feb 04, 2023 12:25 AM Reporting Lab: [facility] [address] Performing Lab: [facility] [address] [place] [facility] CBC & DIFF NEUTROPHIL S [#/VOLUME] IN BLOOD BY AUTOMATED COUNT 4.75 2.0 - 7.7 02/04 Specimen Type: BLOOD Comment: Automated Differentia l Performed Ordering Provider: JOSE GLASS Report Released Date/Time: Feb 04, 2023 12:25 AM Reporting Lab: [facility] [address] Performing Lab: [facility] [address] [place] [facility] CBC & DIFF EOSINOPHIL S [#/VOLUME] IN BLOOD BY AUTOMATED COUNT 0.48 0 - 0.5 02/04 Specimen Type: BLOOD Comment: Automated Differentia l Performed Ordering Provider: JOSE GLASS Report Released Date/Time: Feb 04, 2023 12:25 AM Reporting Lab: [facility] [address] Performing Lab: [facility] [address] [facility] CBC & DIFF BASOPHILS [#/VOLUME] IN BLOOD BY AUTOMATED COUNT 0.04 0 - 0.2 02/04 Specimen Type: BLOOD Comment: Automated Differentia l Performed Ordering Provider: JOSE GLASS Report Released Date/Time: Feb 04, 2023 12:25 AM Reporting Lab: [facility] [address] Performing Lab: [facility] [address] [facility] CBC & DIFF IG(META,MY CHEIKH,PRO) 0.1 02/04 Specimen Type: BLOOD Comment: Automated Differentia l Performed Ordering Provider: JOSE GLASS Report Released Date/Time: Feb 04, 2023 12:25 AM Reporting Lab: [facility] [address] Performing Lab: [facility] [id number] [facility] CBC & DIFF IMMATURE GRANULOCYT ES [PRESENCE] IN BLOOD BY AUTOMATED COUNT 0.01 0 - 0.1 02/04 Specimen Type: BLOOD Comment: Automated Differentia l Performed Ordering Provider: JOSE GLASS Report Released Date/Time: Feb 04, 2023 12:25 AM Reporting Lab: [facility] [address] Performing Lab: [facility] [address] [facility] COMPREHE NSIVE METABOLI C PANEL+MG CREATININE [MASS/VOLU ME] IN SERUM OR PLASMA 1.3 0.7 - 1.2 02/04 H Specimen Type: PLASMA No comment entered. Ordering Provider: JOSE GLASS Report Released Date/Time: Feb 04, 2023 12:25 AM Reporting Lab: [facility] [address] Performing Lab: [facility] [address] [facility] COMPREHE NSIVE METABOLI C PANEL+MG UREA NITROGEN [MASS/VOLU ME] IN SERUM OR PLASMA 16 8 - 26 02/04 Specimen Type: PLASMA No comment entered. Ordering Provider: JOSE GLASS Report Released Date/Time: Feb 04, 2023 12:25 AM Reporting Lab: [facility] [address] Performing Lab: [facility] [address] [place] [facility] COMPREHE NSIVE METABOLI C PANEL+MG GLUCOSE [MASS/VOLU ME] IN SERUM OR PLASMA 96 70 - 100 02/04 Specimen Type: PLASMA No comment entered. Ordering Provider: JOSE GLASS Report Released Date/Time: Feb 04, 2023 12:25 AM Reporting Lab: [facility] [address] Performing Lab: [facility] [address] [place] [facility] COMPREHE NSIVE METABOLI C PANEL+MG SODIUM [MOLES/VOL UME] IN SERUM OR PLASMA 141 136 - 145 02/04 Specimen Type: PLASMA No comment entered. Ordering Provider: JOSE GLASS Report Released Date/Time: Feb 04, 2023 12:25 AM Reporting Lab: [facility] [address] Performing Lab: [facility] [address] [place] [facility] COMPREHE NSIVE METABOLI C PANEL+MG POTASSIUM [MOLES/VOL UME] IN SERUM OR PLASMA 3.9 3.5 - 5.1 02/04 Specimen Type: PLASMA No comment entered. Ordering Provider: JOSE GLASS Report Released Date/Time: Feb 04, 2023 12:25 AM Reporting Lab: [facility] [address] Performing Lab: [facility] [address] [place] [facility] COMPREHE NSIVE METABOLI C PANEL+MG CHLORIDE [MOLES/VOL UME] IN SERUM OR PLASMA 107 98 - 107 02/04 Specimen Type: PLASMA No comment entered. Ordering Provider: JOSE GLASS Report Released Date/Time: Feb 04, 2023 12:25 AM Reporting Lab: [facility] [address] Performing Lab: [facility] [address] [place] [facility] COMPREHE NSIVE METABOLI C PANEL+MG CARBON DIOXIDE, TOTAL [MOLES/VOL UME] IN SERUM OR PLASMA 23 - 02/04 Specimen Type: PLASMA No comment entered. Ordering Provider: JOSE GLASS Report Released Date/Time: Feb 04, 2023 12:25 AM Reporting Lab: [facility] [address] Performing Lab: [facility] [address] [place] [facility] COMPREHE NSIVE METABOLI C PANEL+MG CALCIUM [MASS/VOLU ME] IN SERUM OR PLASMA 9.2 8.4 - 10.2 02/04 Specimen Type: PLASMA No comment entered. Ordering Provider: JOSE GLASS Report Released Date/Time: Feb 04, 2023 12:25 AM Reporting Lab: [facility] [address] Performing Lab: [facility] [address] [place] [facility] COMPREHE NSIVE METABOLI C PANEL+MG PROTEIN [MASS/VOLU ME] IN SERUM OR PLASMA 7.3 6.0 - 8.3 02/04 Specimen Type: PLASMA No comment entered. Ordering Provider: JOSE GLASS Report Released Date/Time: Feb 04, 2023 12:25 AM Reporting Lab: [facility] [address] Performing Lab: [facility] [address] [place] [facility] COMPREHE NSIVE METABOLI C PANEL+MG ALBUMIN [MASS/VOLU ME] IN SERUM OR PLASMA 4.2 3.5 - 5.2 02/04 Specimen Type: PLASMA No comment entered. Ordering Provider: JOSE GLASS Report Released Date/Time: Feb 04, 2023 12:25 AM Reporting Lab: [facility] [address] Performing Lab: [facility] [address] [place] [facility] COMPREHE NSIVE METABOLI C PANEL+MG BILIRUBIN. TOTAL [MASS/VOLU ME] IN SERUM OR PLASMA 0.6 0.2 - 1.2 02/04 Specimen Type: PLASMA No comment entered. Ordering Provider: JOSE GLASS Report Released Date/Time: Feb 04, 2023 12:25 AM Reporting Lab: [facility] [address] Performing Lab: [facility] [address] [place] [facility] COMPREHE NSIVE METABOLI C PANEL+MG MAGNESIUM [MASS/VOLU ME] IN SERUM OR PLASMA 1.8 1.6 - 2.6 02/04 Specimen Type: PLASMA No comment entered. Ordering Provider: JOSE GLASS Report Released Date/Time: Feb 04, 2023 12:25 AM Reporting Lab: [facility] [address] Performing Lab: [facility] [address] [place] [facility] COMPREHE NSIVE METABOLI C PANEL+MG ANION GAP IN SERUM OR PLASMA 11 5 - 15 02/04 Specimen Type: PLASMA No comment entered. Ordering Provider: JOSE GLASS Report Released Date/Time: Feb 04, 2023 12:25 AM Reporting Lab: [facility] [address] Performing Lab: [facility] [address] [place] [facility] COMPREHE NSIVE METABOLI C PANEL+MG ALKALINE PHOSPHATAS E [ENZYMATIC ACTIVITY/V OLUME] IN SERUM OR PLASMA 79 40 - 150 02/04 Specimen Type: PLASMA No comment entered. Ordering Provider: JOSE GLASS Report Released Date/Time: Feb 04, 2023 12:25 AM Reporting Lab: [facility] [address] Performing Lab: [facility] [address] [place] [facility] COMPREHE NSIVE METABOLI C PANEL+MG ALANINE AMINOTRANS FERASE [ENZYMATIC ACTIVITY/V OLUME] IN SERUM OR PLASMA 45 <55 - 55 02/04 Specimen Type: PLASMA No comment entered. Ordering Provider: JOSE GLASS Report Released Date/Time: Feb 04, 2023 12:25 AM Reporting Lab: [facility] [address] Performing Lab: [facility] [address] [place] [facility] COMPREHE NSIVE METABOLI C PANEL+MG ASPARTATE AMINOTRANS FERASE [ENZYMATIC ACTIVITY/V OLUME] IN SERUM OR PLASMA 59 <34 - 34 02/04 H Specimen Type: PLASMA No comment entered. Ordering Provider: JOSE GLASS Report Released Date/Time: Feb 04, 2023 12:25 AM Reporting Lab: [facility] [address] Performing Lab: [facility] [address] [place] [facility] COMPREHE NSIVE METABOLI C PANEL+MG GLOMERULAR FILTRATION RATE/1.73 SQ M.PREDICTE D [VOLUME RATE/AREA] IN SERUM, PLASMA OR BLOOD BY CREATININE -BASED FORMULA (CKD-EPI 2020) 76 60 02/04 Specimen Type: PLASMA No comment entered. Ordering Provider: JOSE GLASS Report Released Date/Time: Feb 04, 2023 12:25 AM Reporting Lab: [facility] [address] Performing Lab: [facility] [address] [place] [facility] EXTRA GOLD GEL TUBE EXTRA GOLD GEL TUBE RECEIVED 02/04 Specimen Type: SERUM No comment entered. Ordering Provider: JOSE GLASS Report Released Date/Time: Feb 04, 2023 12:43 AM Reporting Lab: [facility] [address] Performing Lab: [facility] [address] [place] [facility] PROTHROM BIN TIME/INR INR IN PLATELET POOR PLASMA BY COAGULATIO N ASSAY 1.0 0.8 - 1.1 02/04 Specimen Type: PLASMA No comment entered. Ordering Provider: JOSE GLASS Report Released Date/Time: Feb 04, 2023 12:25 AM Reporting Lab: [facility] [address] Performing Lab: [facility] [address] [place] [facility] PROTHROM BIN TIME/INR PROTHROMBI N TIME (PT) 12.1 9.4 - 12.5 02/04 Specimen Type: PLASMA No comment entered. Ordering Provider: JOSE GLASS Report Released Date/Time: Feb 04, 2023 12:25 AM Reporting Lab: [facility] [address] Performing Lab: [facility] [address] [place] [facility] Vital Signs Combined list of inpatient and outpatient Vital Signs from Department of Defense and Veterans Affairs, ranging from 12 months to all on record, depending upon the facility. Vital Sign Value Date Comments Source SYSTOLIC BLOOD PRESSURE 123 02/03/2023 23:56:32 [facility] DIASTOLIC BLOOD PRESSURE 77 02/03/2023 23:56:32 [facility] PULSE OXIMETRY 97% 02/03/2023 23:56:32 [place] [facility] PAIN 5 02/03/2023 23:56:32 [facility] [place] [facility] TEMPERATURE 97.3 02/03/2023 23:56:32 [facility] PULSE 88 02/03/2023 23:56:32 [place] [facility] RESPIRATION 18 02/03/2023 23:56:32 [place] [facility] SYSTOLIC BLOOD PRESSURE 129 10/18/2022 13:27:15 [facility] DIASTOLIC BLOOD PRESSURE 77 10/18/2022 13:27:15 [facility] TEMPERATURE 98.1 10/18/2022 13:27:15 [place] [facility] PULSE 78 10/18/2022 13[facility]27:15 [place] [facility] SYSTOLIC BLOOD PRESSURE 140 09/13/2022 14:23:23 [facility] DIASTOLIC BLOOD PRESSURE 56 09/13/2022 14:23:23 [facility] PULSE OXIMETRY 99% 09/13/2022 14:23:23 [place] [facility] WEIGHT 220 09/13/2022 14:23:23 [place] [facility] BMI 35kg/m2 09/13/2022 14:23:23 [place] [facility] PAIN 0 09/13/2022 14[facility]23:23 [place] [facility] TEMPERATURE 97 09/13/2022 14:23:23 [place] [facility] PULSE 72 09/13/2022 14:23:23 [place] [facility] RESPIRATION 16 09/13/2022 14:23:23 [place] [facility] Encounters Combined list of: 1) Encounters from Department of Veterans Affairs facilities going back up to thelast 18 months. 2) Encounters from the Department of Defense facilities going back up to 280 months. Location Location Details Encounter Type Encounter Number Reason For Visit Attending Provider ADM Date DC Date Status Disposition Source [facility](FRANCHESKA mullen) OUTPATIENT [id number] Notes Entered by: JENNIFER MEDRANO 12 Feb 2012 0753 ------- ------- ------- ------- -- RAJESH BOOGIE 02/11 Released w/o Limitations [facility]( CRD Recruit Process ing) [facility] D HC Program) OUTPATIENT [id number] Notes Entered by: LYNDSEY STEPHEN 12 Feb 2012 1010 ------- ------- ------- ------- -- EVEL[facility] CR[facility] LYNDSEY STEPHEN 02/11 Released w/o Limitations [facility]( [facility]D HC Program ) [facility] D Recruit Sick Call) OUTPATIENT [id number] Notes Entered by: Norberto GRAY 29 Feb 2012 0712 ------- ------- ------- ------- -- COUGH X5 DAYS SALENA GODOY 02/28 Sick at Home/Quarter s [facility]( [facility]D Recruit Sick Call) [facility] D Recruit Sick Call) OUTPATIENT [id number] Notes Entered by: Bala JUNG 02 Mar 2012 0646 ------- ------- ------- ------- -- PNA F/U ERIC SANDOVAL 03/02 Released w/o Limitations [facility](M CRD Recruit Sick Call) [facility] D Recruit Processin g) OUTPATIENT [id number] T48 VACCINE MARIAM PARMAR 03/17 Released w/o Limitations [facility](M CRD Recruit Process ing) [facility] D Recruit Sick Call) OUTPATIENT [id number] 1 MONTH F/U PNA XXXSMELI DIEZ 04/09 Released w/o Limitations [facility](M CRD Recruit Sick Call) [facility] D Recruit Processin g) OUTPATIENT [id number] T48 VACCINE FREDDIE DRAPER 04/13 Released w/o Limitations [facility](M CRD Recruit Process ing) [place] [employer] [place] FP [facility]) OUTPATIENT [id number] post MITCHEL Garza 05/13 Released w/o Limitations [place] [employer] [place] [place] [facility]) [place] [employer] [place] OUTPATIENT [id number] SOURAV Grove 06/18 Released w/o Limitations [place] [employer] [place] [employer] [place] OUTPATIENT [id number] Notes Entered by: LUCHO CAMPBELL 15 Mar 2013 1103 ------- ------- ------- ------- -- ANNUAL AUDIOGR AM PING CAMPBELL 03/15 Released w/o Limitations [place] [employer] [place] [place] [place] [facility] [employer] [place] OUTPATIENT [id number] Notes Entered by: LISSETTE ROCHA 27 Dec 2013 0838 ------- ------- ------- ------- -- JAMIE ROBIN E: Test Date December 21, 2013 ELANA CHOPRA 12/27 Released w/o Limitations [place] [employer] [facility] OUTPATIENT [id number] Theater Provider 02/19 Sick at Home/Quarter s [facility] OUTPATIENT [id number] Theater Provider 05/28 Released w/o Limitations [facility] [place] [employer] [place] [place] OUTPATIENT [id number] REE [id number] SIVAKUMAR GUAMAN 12/22 Released w/o Limitations [place] [employer] [place] [facility] [facility](43 Area [facility] [place] [facility]) OUTPATIENT [id number] IVANA PÉREZ 10/08 Released w/o Limitations [facility](4 3 Area [facility] [place] [facility]) [facility]([address] [facility] [place] [facility]) OUTPATIENT [id number] FINAL PHYSICA [place] IVANA PÉREZ A 10/22 Released w/o Limitations [facility](4 3 Area [facility] [place] [facility]) [place] [facility] Outpatient Encounter [id number] MORRIS DELGADILLO 02/19 [place] [facility] [place] [facility] Outpatient Encounter [id number] 04/30 [place] [facility] [place] [facility] Outpatient Encounter [id number] TYRONE COVARRUBIAS 05/14 [place] [facility] [place] [facility] Outpatient Encounter [id number] 05/14 [place] [facility] [place] [facility] Outpatient Encounter [id number] Diagnos is: ICD-10- CM M25.521 Pain in right elbow<b r/> NINOSKA THOMPSONAMIN E 05/15 [place] [facility] [place] [facility] Outpatient Encounter [id number] TEOFILO IBARRA 05/16 [place] [facility] [place] [facility] Outpatient Encounter [id number] SA ALMA SINGH R 05/16 [place] [facility] [place] [facility] Outpatient Encounter [id number] SA ALMA SINGH R 05/24 [place] [facility] [place] [facility] Outpatient Encounter [id number] MORRIS DELGADILLO 06/06 [place] [facility] [place] [facility] Outpatient Encounter [id number] NINOSKA THOMPSON NJAMIN E 06/06 [place] [facility] [place] [facility] Outpatient Encounter [id number] 06/07 [place] [facility] [place] [facility] Outpatient Encounter [id number] 06/07 [place] [facility] [place] [facility] Outpatient Encounter [id number] MORRIS DELGADILLO 07/23 [place] [facility] [place] [facility] Outpatient Encounter [id number] MORRIS DELGADILLO 07/23 [place] [facility] [place] [facility] Outpatient Encounter [id number] 07/26 [place] [facility] PSYTX W PT 30 MINUTES [id number] Diagnos is: ICD-10- CM F41.8 Other specifi ed anxiety disorde rs
IRMA SPRINGER 07/31 [facility] PSYCH DIAGNOSTIC EVALUATION [id number] Diagnos is: ICD-10- CM F43.89 Other reactio ns to severe stress< br/> ELMA YARBROUGH 08/21 [facility] Outpatient Encounter [id number] HIREN HINES 08/29 [facility] Outpatient Encounter [id number] 08/30 [facility] Outpatient Encounter [id number] 09/12 [facility] OFFICE O/P EST LOW 20-29 MIN [id number] Diagnos is: ICD-10- CM M25.512 Pain in left shoulde r
NINOSKA THOMPSON E 09/13 [facility] DENTAL PANORAMIC IMAGE [id number] Diagnos is: ICD-10- CM K02.62 Dental caries on smooth surface penetra ting into dentin< br/> Valeria JADE 10/18 [place] [facility] Outpatient Encounter [id number] 10/30 [place] [facility] [place] [facility] Outpatient Encounter [id number] 10/30 [place] [facility] [place] [facility] Outpatient Encounter [id number] 11/02 [place] [facility] [place] [facility] Outpatient Encounter [id number] MORRIS DELGADILLO Elizabeth 11/06 [place] [facility] [place] [facility] Out[place] Encounter [id number] 12/11 [place] [facility] [place] [facility] Outpatient Encounter [id number] 12/17 [place] [facility] [place] [facility] Outpatient Encounter [id number] PANCHITO BOYD 12/21 [place] [facility] [place] [facility] Outpatient Encounter [id number] DARIN MORRELL 12/23 [place] [facility] [place] [facility] Outpatient Encounter [id number] NINOSKA THOMPSON 12/27 [facility] OFF[facility] O/P EST MOD 30-39 MIN [id number] Diagnos is: ICD-10- CM D48.5 Neoplas m of uncerta in behavio r of skin
AKBAR,NO RA SHADE 01/22 [place] [facility] [place] [facility] Out[facility] Encounter [id number] 01/22 [facility] [place] [facility] QNHP OL DIG ASSMT&MGMT 21+ [id number] Diagnos is: ICD-10- CM L64.8 Other androge elena alopeci a
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
Norberto GARCIA OAH I 01/24 [place] [facility] [place] [facility] Outpatient Encounter [id number] PANCHITO BOYD 02/03 [place] [facility] [place] [facility] EMERGENCY DEPT VISIT LOW MDM [id number] Diagnos is: ICD-10- CM R10.30 Lower abdomin al pain, unspeci fied
ELISE DE LA FUENTE 02/03 [place] [facility] [place] [facility] Outpatient Encounter [id number] 02/11 [place] [facility] [place] [facility] Outpatient Encounter [id number] Norberto OSMAN 02/13 [place] [facility] [place] [facility] Outpatient Encounter [id number] NINOSKA THOMPSON 02/13 [place] [facility] [place] [facility] Outpatient Encounter [id number] 02/15 [place] [facility] [place] [facility] Outpatient Encounter [id number] PABLO BROOKS 04/16 [place] [facility] [place] [facility] Outpatient Encounter [id number] MAGALIS WEST 04/21 [place] [facility] [place] [facility] Outpatient Encounter [id number] NORY MCCORMICK 05/08 [place] [facility] [place] [facility] Outpatient Encounter [id number] 05/16 [place] [facility] [place] [facility] Outpatient Encounter [id number] 06/17 [facility] [place] [facility] Outpatient Encounter [id number] MICHELL GODOY 06/17 [facility] Procedures Combined list of: 1) Procedures from Department of [facility] Affairs facilities going back up to thelast 18 months, not all [place] non-surgical procedures are included; 2) All procedures from the Department of Defense facilities. Procedure Procedure Type Code Date Perfomer Comments Sourc e FITTING OF SPECTACLES, EXCEPT FOR APHAKIA; MONOFOCAL [facility] NEUROPSYCHOLOGICAL TESTING (EG, [place] CARD SORTING TEST), ADMINISTERED BY A COMPUTER, WITH QUALIFIED HEALTH PST MANAGER INTERPRETATION AND REPORT [facility] PATIENT EDUCATION, NOT OTHERWISE CLASSIFIED, NON-PHYSICIAN PROVIDER, INDIVIDUAL, PER SESSION [facility] THERAPEUTIC, PROPHYLACTIC, OR DIAGNOSTIC INJECTION (SPECIFY SUBSTANCE OR DRUG); SUBCUTANEOUS OR INTRAMUSCULAR [facility] IMMUNIZATION ADMINISTRATION (INCLUDES PERCUTANEOUS, INTRADERMAL, SUBCUTANEOUS, OR INTRAMUSCULAR INJECTIONS); 1 VACCINE (SINGLE OR COMBINATION VACCINE/TOXOID) [facility] INJECTION, PENICILLIN G BENZATHINE, 100,000 UNITS [facility] PHYS/OTH QUALIFIED HEALTH PST MANAGER QUALIFIED,EDUCATION,T RAIN,LICENSURE/REGULA TION (WHEN APPLICABLE) EDUC SER RENDERED TO PATS IN A GRP SETTING (EG,,OBESITY, OR DIABETIC INSTRUCT) [facility] COLLECTION OF VENOUS BLOOD BY VENIPUNCTURE [facility] Spectacles Services Fitting Monofocal Except For Aphakia [facility] Services Fitting Monofocal Except For Aphakia 32166 015 SIVAKUMAR LIRIANO [facility] Determination Of Refractive State Determination Of Refractive State [id number] 015 SIVAKUMAR LIRIANO [facility] Ophthalmological New Patient Start Comprehensive Care Ophthalmological New Patient Start Comprehensive Care 07122 015 SIVAKUMAR LIRIANO [facility] Psychometric Neuropsych Testing Battery Admin By Computer ELANA CHOPRA [facility] Patient education, not otherwise cla ified, non-physician provider, individual, per se ion PING CAMPBELL [facility] Audiometry Group Testing Audiometry Group Testing 23126 PING CAMPBELL [facility] Physician Supervised Injection Intramuscular Antibiotic Physician Supervised Injection Intramuscular Antibiotic 22203 SOURAV BRUNER [facility] Screening to determine the appropriatene of consideration of an individual for participation in a specified program, project or treatment protocol, per encounter SOURAV BRUNER [facility] Injection, penicillin g benzathine, 100,000 units JADA GARCIAS [facility] Immunization Administration By Injection, One Vaccine Immunization Administration By Injection, One Vaccine 18460 JADA GARCIAS [facility] Physician Supervised Injection Intramuscular Antibiotic Physician Supervised Injection Intramuscular Antibiotic 70802 [facility] Vaccines Viral Yellow Fever Vaccines Viral Yellow Fever 04672 [facility] Hepatitis A And Hepatitis B (Intramuscular Use) Adult Dosage Hepatitis A And Hepatitis B (Intramuscular Use) Adult Dosage [address] [facility] Physician Supervised Injection Intramuscular Physician Supervised Injection Intramuscular [address]95[address] [facility], [facility] [place] Vaccines Viral Polio, Inactivated Vaccines Viral Polio, Inactivated 12959 [facility] Immunization Administration By Injection, One Vaccine Immunization Administration By Injection, One Vaccine 20253 [facility] Immunization Administration By Injection, Each Additional Vaccine [facility] Injection, penicillin g benzathine, 100,000 units [facility] Collection Of Capillary Blood Specimen Collection Of Capillary Blood Specimen 55290 MARINJANET CROCKETT [facility] Venipuncture Venipuncture 02847 MARINJANET CROCKETT [facility] Immunization Administration By Injection, One Vaccine Immunization Administration By Injection, One Vaccine 91128 MARINJANET CROCKETT [facility] Meningococcal Polysaccharide Vaccine Meningococcal Polysaccharide Vaccine 87352 MARINJANET CROCKETT [facility] Hepatitis A And Hepatitis B (Intramuscular Use) Adult Dosage Hepatitis A And Hepatitis B (Intramuscular Use) Adult Dosage 72847 JANET MARIN [facility] Immunization Administration By Injection, Each Additional Vaccine JANET MARIN [facility] Pneumococcal Polysaccharide Vaccine 23 Valent Intramuscular Pneumococcal Polysaccharide Vaccine 23 Valent Intramuscular [id number] JANET MARIN Tdap Vaccine Seven Years Of Age And Above Tdap Vaccine Seven Years Of Age And Above 41508 JANET MARIN Skin Test Anergy Tuberculin Intradermal Skin Test Anergy Tuberculin Intradermal [id number] JANET MARIN Threshold Audiogram (Pure Tone) Threshold Audiogram (Pure Tone) 42132 LYNDSEY STEPHEN [facility] Physician Supervised [facility] Educational Services LYNDSEY STEPHEN [facility] Social History Combined list of available smoking, tobacco, and other social history from Department of Defense and Veterans Affairs facilities. Social History Type Response Date Comment Sour e Tobacco smoking status [facility]-TOBACCO FORMER USER 09/12/2022 [facility] History of tobacco use NM-TOBACCO QUIT 5 TO < 15 YRS 09/12/2022 [facility] History of tobacco use NM-TOBACCO QUIT 5 TO < 15 YRS 05/17/2021 [facility] History of tobacco use NM-TOBACCO QUIT 5 TO < 15 YRS 06/03/2019 [facility] History of tobacco use NM-TOBACCO DOESNT USE WI 30 MIN WAKEUP 04/08/2018 [facility] This section is an empty social history section. [facility] Plan of Care List of future care activities from Department of Veterans Affairs facilities. Additional future care activities may be listed in the Assessment and Plan section. Date/Time Care Activity Care Activity Detail Facili ty 07/10/2023 AMBULATORY - SURGERY AMBULATORY - SURGERY [facility]
[2023-06-20 22:24] LABS: GC DNA Amplified* NOT DETECTED (No Detected)
[2023-06-20 22:27] LABS: Chlamydia DNA Amplified* DETECTED (No Detected)
== END 2023-06-20 14:46 | disposition home or self-care (01) ==
LOC: NFLDUCREF 14:46
PROVIDERS: Visit Provider Nurse Practitioner
DX: Z11.3 Encounter for screening for infections with a predominantly sexual mode of transmission (principal)
CPT/HCPCS: 87491; 87591